=== PATIENT | female | born 1990 | race Caucasian/White ===

== ENCOUNTER 2016-08-30 22:41 | Emergency (ER) | payer MEDICAID ==
[~2016-08-30] VITALS: Ht 154.9 cm; Wt 90.7 kg
[~2016-08-30 22:41] MED LIST: AC325T PO; AC500T PO; ACHD5005 PO; ALBU17AE23 IH; AMOX250C PO; AMOX500C2 PO; ARMO150T3 PO; BUTA-234 PO; BUTA1CAP41; CEFD300C3 PO; CEFU500T PO; CEPH-38 PO; CEPH-507 PO; CEPH500T PO; CODE-54 PO; CPR500T PO; CTLP20T PO; DIPH25TA82 PO; FERR-57 PO; FERR240T9 PO; FERR325C PO; FRS325T PO; HYDR-2856 PO; HYDR-3456 PO; HYDR-3714 PO; HYDR-757 PO; HYDR1CAP2 PO; HYDR1TAB PO; HYDR1TAB86 PO; IBP600T1 PO; IBP800T PO; LEVO25TA5; LMT25T PO; METR500T PO; NITR100C3 PO; OMEP40CA36; OSLT75C PO; OXYC-12 PO; PREN-115 PO; PREN1TAB39 PO; PREN1TAB71 PO; PRESTIQ; PRM25T PO; RANI150C11 PO; SULF1TAB35 PO; TRAM-21 PO; TRAZ150T42 PO
[2016-08-30] MEDS ORDERED: FERR236T3 PO (23:41)
[2016-08-31 00:23] LABS: BASOPHILS # (AUTO) 0.1 10^3/uL (0.0-0.1); BASOPHILS % (AUTO) 0 % (0-10); EOSINOPHILS # (AUTO) 0.1 10^3/uL (0.0-0.3); EOSINOPHILS % (AUTO) 1 % (0-10); LYMPHOCYTES # (AUTO) 3.3 X 10^3 (1.0-4.0); LYMPHOCYTES % (AUTO) 29 % (12-44); MEAN CORPUSCULAR HEMOGLOBIN 27 PG (25-34); MEAN CORPUSCULAR HGB CONC 32 G/DL (32-36); MEAN CORPUSCULAR VOLUME 84 FL (80-99); MEAN PLATELET VOLUME 9.5 FL (7.4-10.4); MONOCYTES # (AUTO) 0.8 X 10^3 (0.0-1.0); MONOCYTES % (AUTO) 7 % (0-12); NEUTROPHILS % (AUTO) 63 % (42-75); PLATELET COUNT 358 10^3/uL (130-400); RED BLOOD COUNT 4.31 10^6/uL (4.35-5.85); RED CELL DISTRIBUTION WIDTH 14.8 % (10.0-14.5); WHITE BLOOD COUNT 11.2 10^3/uL (4.3-11.0)
[2016-08-31 00:26] LABS: BILIRUBIN,URINE NEGATIVE (NEGATIVE); KETONES,URINE NEGATIVE (NEGATIVE); LEUKOCYTE ESTERASE ,URINE 3+ (NEGATIVE); NITRITE,URINE NEGATIVE (NEGATIVE); PH,URINE 6 (5-9); PROTEIN,URINE NEGATIVE (NEGATIVE); UROBILINOGEN,URINE NORMAL (NORMAL)
[2016-08-31 00:40] LABS: ALANINE AMINOTRANSFERASE 25 U/L (0-55); ALBUMIN 3.8 G/DL (3.2-4.5); ANION GAP 11 MMOL/L (5-14); ASPARTATE AMINO TRANSFERASE 19 U/L (5-34); BILIRUBIN,TOTAL 0.3 MG/DL (0.1-1.0); BLOOD UREA NITROGEN 12 MG/DL (7-18); BUN/CREATININE RATIO 17; CALCIUM 9.2 MG/DL (8.5-10.1); CARBON DIOXIDE 23 MMOL/L (21-32); CHLORIDE 107 MMOL/L (98-107); CREATININE SERUM 0.71 MG/DL (0.60-1.30); GFR ESTIMATED > 60; GLUCOSE 93 MG/DL (70-105); LIPASE 26 U/L (8-78); SODIUM 141 MMOL/L (135-145); TOTAL PROTEIN 7.4 G/DL (6.4-8.2)
[2016-08-31] MEDS ORDERED: CEPHALEXIN 250 MG (KEFLEX) CAP PO ONE (02:30)
[2016-08-31] MEDS ORDERED: KETOROLAC 30 MG/ML VIAL IVP ONE (02:30)
[2016-08-31] MEDS ORDERED: CEPH-507 PO (03:12)
[2016-08-31] MEDS ORDERED: RX-ONDANSETRON 4 MG ODT (ZOFRAN) PPK #4 SL STA (03:12)
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
[2016-08-31 03:23] VITALS: BP 136/103
--- NOTE | 2016-08-31 07:37 | Diagnostic Imaging Report ---
INDICATION: Abdominal pain. COMPARISON: None FINDINGS: Upright and supine frontal views of the abdomen are obtained. The bowel gas pattern is nonspecific but nonobstructive. There is a large amount of stool throughout the colon. There is some gas within nondistended small bowel. There is no evidence of free intraperitoneal air. There are surgical clips in the right upper quadrant likely from prior cholecystectomy. No urinary tract calcifications are suspected. The osseous structures appear unremarkable. IMPRESSION: Nonspecific but nonacute bowel gas pattern. There is a large amount of stool in the colon. No additional abnormality is seen. Dictated by: Dictated on workstation # [id number]
--- OUTSIDE RECORDS SUMMARY | 2016-09-11 13:15 | XMS REPORT ---
Author Author JYOTHI VALENTIN [facility] eClinicalWorks Address Unknown Phone Unavailable Care Team Providers Care Art Appraiser Name Role Phone JYOTHI VALENTIN CP Unavailable Allergies No Known Allergies Problems Problem Type Condition Code Onset Dates Condition Status Assessment Sore throat J02.9 Active Problem Borderline hypothyroidism R94.6 Active Problem Unprotected sex Z72.51 Active Problem Headache, chronic migraine without aura G43.709 Active Problem Fatigue R53.83 Active Problem Encounter for surveillance of nuvaring Z30.49 Active Problem Acquired hypothyroidism E03.9 Active Problem Periodic headache syndrome, not intractable G43.C0 Active Problem Hernia, umbilical K42.9 Active Problem Acute maxillary sinusitis, recurrence not specified J01.00 Active Medications No Known Medications Results No Known Results Summary Purpose eClinicalWorks Submission
--- OUTSIDE RECORDS SUMMARY | 2016-09-11 13:15 | XMS REPORT ---
Author Author ALYCIA FERGUSON Organization e[employer] Address Unknown Phone Unavailable Care Team Providers Care Table Worker Packager Name Role Phone ALYCIA FERGUSON CP Unavailable Allergies No Known Allergies Problems Problem Type Condition Code Onset Dates Condition Status Problem Borderline hypothyroidism R94.6 Active Problem Unprotected sex Z72.51 Active Problem Periodic headache syndrome, not intractable G43.C0 Active Medications Medication Code System Code Instructions Start Date End Date Status Dosage Protonix [facility] [address]-58 40 MG Orally Once a day Jan 31, 2015 1 tablet Results No Known Results Summary Purpose eClinicalWorks Submission
--- OUTSIDE RECORDS SUMMARY | 2016-09-11 13:15 | XMS REPORT ---
Author SUZIE Monreal e[employer] Address Unknown Phone Unavailable Care Team Providers Care Molder Setter Name Role Phone SUZIE JUSTIN CP Unavailable Allergies No Known Allergies Problems Problem Type Condition Code Onset Dates Condition Status Assessment Positive test Z32.01 Active Problem Borderline hypothyroidism R94.6 Active Problem [...]
--- OUTSIDE RECORDS SUMMARY | 2016-09-11 13:15 | XMS REPORT ---
Author Author JAYDEN ESCALANTE [facility] Address [address] [place] [address] Care Team Providers Care Bindery Machine Tender Name Role Phone JAYDEN ESCALANTE Unavailable PROBLEMS Type Condition ICD9-CM Code [id number] Code Onset Dates Condition Status SNOMED Code Problem Acquired hypothyroidism E03.9 Active 251264016 Problem Hernia, umbilical K42.9 Active 466913271 Problem Acute maxillary sinusitis, recurrence not specified J01.00 Active 89870373 Assessment Single current episode of major depressive disorder, unspecified depression episode severity F32.9 Jan, Active 56722162 Problem Unprotected sex Z72.51 Active 7913757 Problem Borderline hypothyroidism R94.6 Active 667555311 Problem Periodic headache syndrome, not intractable G43.C0 Active 36094098 Problem Single current episode of major depressive disorder, unspecified depression episode severity F32.9 Active 996626995 Problem Anxiety disorder, unspecified F41.9 Active 185597199 Problem Headache, chronic migraine without aura G43.709 Active 501501663372451 Problem Fatigue R53.83 Active 74146355 Problem Borderline personality disorder in adult F60.3 Active 94115980 Problem Encounter for surveillance of nuvaring Z30.49 Active 183442194 ALLERGIES Substance Reaction Event Type Date Status Percocet Unknown Drug Allergy Jan, Active SOCIAL HISTORY No smoking Hx information available PLAN OF CARE VITAL SIGNS MEDICATIONS Unknown Medications RESULTS No Results PROCEDURES Procedure Date Ordered Related Diagnosis Body Site Psychotherapy, patient &/family, 30 minutes, established patient Feb 26, 2016 IMMUNIZATIONS No Known Immunizations
--- OUTSIDE RECORDS SUMMARY | 2016-09-11 13:15 | XMS REPORT ---
Author Author SUZIE JUSTIN [employer] Address Unknown Phone Unavailable Care Team Providers Care Highballer Name Role Phone SUZIE JUSTIN CP Unavailable Allergies, Adverse Reactions, Alerts Substance Reaction Event Type Percocet Info Not Available Drug Allergy Problems Problem Type Condition Code Onset Dates [...] sinusitis, recurrence not specified J01.00 Active Medications Medication Code System Code Instructions Start Date End Date Status Dosage [facility] [address]-68 27-1 MG Orally not defined Results No Known Results Summary Purpose eClinicalWorks Submission
--- OUTSIDE RECORDS SUMMARY | 2016-09-11 13:15 | XMS REPORT ---
Author Author FAVIOLA MEDINA Organization eClinical[employer] Address Unknown Phone Unavailable Care Team Providers Care Internet Retailer Name Role Phone FAVIOLA MEDINA CP Unavailable Allergies No Known Allergies Problems Problem Type Condition Code Onset Dates Condition Status Problem Borderline hypothyroidism R94.6 Active Problem Unprotected sex Z72.51 Active Problem Periodic headache syndrome, not intractable G43.C0 Active Medications Medication Code System Code Instructions Start Date End Date Status Dosage [facility] [address]-46 10-325 MG Orally every 6 hrs Jan 28, 2015 1 tablet as needed Results No Known Results Summary Purpose eClinicalWorks Submission
--- OUTSIDE RECORDS SUMMARY | 2016-09-11 13:16 | XMS REPORT ---
Author Author TIM PATTRESON Organization eClinical[employer] Address Unknown Phone Unavailable Care Team Providers Care Rehabilitation Caseworker Name Role Phone TIM PATTERSON CP Unavailable Allergies No Known Allergies Problems [...]
--- OUTSIDE RECORDS SUMMARY | 2016-09-11 13:16 | XMS REPORT ---
Author Author ALYCIA FERGUSON Organization [employer] Address Unknown Phone Unavailable Care Team Providers Care Forming Machine Operator Name Role Phone ALYCIA FERGUSON CP Unavailable [...] Instructions Start Date End Date Status Dosage Hpxhupwavw-UHJE-Lcqfqeie [facility] [address]-41 50-300-40 MG Orally every 6 hours as needed for severe headache Jan 23, 2015 1 capsule Results No Known Results Summary Purpose eClinicalWorks Submission
--- OUTSIDE RECORDS SUMMARY | 2016-09-11 13:17 | XMS REPORT ---
Author Author SUZIE JUSTIN [facility] Address [address] [place] [address] Care Team Providers Care Reporting Developer Name Role Phone SUZIE JUSTIN Unavailable PROBLEMS Type Condition ICD9-CM Code [id number] Code Onset Dates Condition Status SNOMED Code Problem Acquired hypothyroidism E03.9 Active 590571246 Problem Hernia, umbilical K42.9 Active 527002067 Problem Acute maxillary sinusitis, recurrence not specified J01.00 Active 30977897 Assessment Encounter for test Z32.00 30 Jan, 2016 Active 350060671 Problem Unprotected sex Z72.51 Active 7746153 Problem Borderline hypothyroidism R94.6 Active 638387008 Problem Periodic headache syndrome, not intractable G43.C0 Active 30165465 Problem Single current episode of major depressive disorder, unspecified depression episode severity F32.9 Active 831364616 Problem Anxiety disorder, unspecified F41.9 Active 803091508 Problem Headache, chronic migraine without aura G43.709 Active 548609559878006 Problem Fatigue R53.83 Active 18064632 Problem Borderline personality disorder in adult F60.3 Active 88792591 Problem Encounter for surveillance of nuvaring Z30.49 Active 998566880 ALLERGIES Unknown Allergies SOCIAL HISTORY No smoking Hx information available PLAN OF CARE VITAL SIGNS MEDICATIONS Unknown Medications RESULTS No Results PROCEDURES Procedure Date Ordered Related Diagnosis Body Site URINE TEST Feb 26, 2016 IMMUNIZATIONS No Known Immunizations
--- OUTSIDE RECORDS SUMMARY | 2016-09-11 13:17 | XMS REPORT ---
Author Author ALYCIA FERGUSON [facility] eClinicalWorks Address Unknown Phone Unavailable Care Team Providers Care Repairer Switchgear Name Role Phone ALYCIA FERGUSON CP Unavailable Allergies, Adverse Reactions, Alerts Substance Reaction Event Type N.K.D.A. Info Not Available Non Drug Allergy Problems Problem Type Condition Code Onset Dates Condition Status Problem Borderline hypothyroidism R94.6 Active Problem Unprotected sex Z72.51 Active Problem Periodic headache syndrome, not intractable G43.C0 Active Assessment Umbilical pain R10.33 Active Assessment GERD (gastroesophageal reflux disease) K21.9 Active Medications Medication Code System Code Instructions Start Date End Date Status Dosage Prevacid [facility] [address]-59 30 MG Orally Once a day Jan 30, 2015 1 capsule Mhdkllxtfy-PVMY-Tjlkucwh [facility] [address]-55 50-300-40 MG Orally every 6 hours as needed for severe headache Jan 23, 2015 1 capsule [place] [facility] [address]-68 10-325 MG Orally every 6 hrs Jan 28, 2015 1 tablet as needed Levothyroxine Sodium [facility] [address]-60 25 MCG Orally Once a day Jan 11, 2015 1 tablet Procedures Procedure Coding System Code Date Office Visit, Est Pt., Level 4 CPT-4 20932 Jan 30, 2015 Vital Signs Date/Time: Jan 30, 2015 Temperature 98.4 F Weight 233.4 lbs Height 62 in BMI 42.68 Index Blood Pressure Diastolic 78 mmHg Blood Pressure Systolic 122 mmHg Cardiac Monitoring Heart Rate 78 bpm Results No Known Results Summary Purpose eClinicalWorks Submission
--- OUTSIDE RECORDS SUMMARY | 2016-09-11 13:17 | XMS REPORT ---
Author Author ALYCIA FERGUSON [facility] eClinicalWorks Address Unknown Phone Unavailable Care Team Providers Care Cook Ship Name Role Phone ALYCIA FERGUSON CP Unavailable [...] specified J01.00 Active Medications No Known Medications Procedures Procedure Coding System Code Date VENIPUNCT, ROUTINE* CPT-4 97953 Jan 01, 2016 [facility] NOBLL Jan 01, 2016 Results Name Result Date Reference Range Unit Abnormality Flag ROUTINE VENIPUNCTURE HCG, QUANTITATIVE ----hCG,Beta Subunit,Qnt,Serum [id number] [id number] mIU/mL Summary Purpose eClinicalWorks Submission
--- OUTSIDE RECORDS SUMMARY | 2016-09-11 13:17 | XMS REPORT ---
Author Author ALYCIA FERGUSON [facility] eClinicalWorks Address Unknown Phone Unavailable Care Team Providers Care Hydroelectric Plant Mechanical Engineer Name Role Phone ALYCIA FERGUSON CP Unavailable Allergies, Adverse Reactions, Alerts Substance Reaction Event Type N.K.D.A. Info Not Available Non Drug Allergy Problems Problem Type Condition Code Onset Dates Condition Status Problem Borderline hypothyroidism R94.6 Active Problem Unprotected sex Z72.51 Active Problem Periodic headache syndrome, not intractable G43.C0 Active Assessment Upper respiratory infection J06.9 Active Assessment Unprotected sex Z72.51 Active Assessment Borderline hypothyroidism R94.6 Active Assessment Periodic headache syndrome, not intractable G43.C0 Active Medications Medication Code System Code Instructions Start Date End Date Status Dosage Imitrex [facility] [address]-31 50 MG Orally Once as needed for MENDES Nov 28, 2014 1 tablet Azithromycin [facility] [address]-82 250 MG Orally Once a day Jan 08, 2015 Jan 13, 2015 2 tablets on the first day, then 1 tablet daily for 4 days Procedures Procedure Coding System Code Date CHORIONIC GONADOTROPIN ASSAY CPT-4 99785 Jan 08, 2015 No Charge CPT-4 72000 Jan 08, 2015 ASSAY THYROID STIM HORMONE CPT-4 11872 Jan 08, 2015 Office Visit, Est Pt., Level 4 CPT-4 83551 Jan 08, 2015 VENIPUNCT, ROUTINE* CPT-4 89547 Jan 08, 2015 Vital Signs Date/Time: Jan 08, 2015 Temperature 98.0 F Weight 232.8 lbs Height 62 in BMI 42.58 Index Blood Pressure Diastolic 74 mmHg Blood Pressure Systolic 128 mmHg Cardiac Monitoring Heart Rate 80 bpm Results Name Result Date Reference Range Unit Abnormality Flag ROUTINE VENIPUNCTURE Summary Purpose eClinicalWorks Submission
--- OUTSIDE RECORDS SUMMARY | 2016-09-11 13:17 | XMS REPORT ---
Author Author ALYCIA FERGUSON Organization eClinicalWorks Address Unknown Phone Unavailable Care Team Providers Care Fishing Gear Mechanic Name Role Phone ALYCIA FERGUSON Unavailable Allergies No Known Allergies Problems Problem Type Condition Code Onset Dates Condition Status Problem Borderline hypothyroidism R94.6 Active Problem Unprotected sex Z72.51 Active Problem Periodic headache syndrome, not intractable G43.C0 Active Medications Medication Code System Code Instructions Start Date End Date Status Dosage Levothyroxine Sodium [facility] [address]-73 25 MCG Orally Once a day Jan 11, 2015 1 tablet Results No Known Results Summary Purpose eClinicalWorks Submission
--- OUTSIDE RECORDS SUMMARY | 2016-09-11 13:17 | XMS REPORT ---
Author Author NANCI MATT [facility] eClinicalWorks Address Unknown Phone Unavailable Care Team Providers Care Short Piece Handler Name Role Phone NANCI MATT Unavailable Allergies No Known Allergies Problems Problem [...]
--- OUTSIDE RECORDS SUMMARY | 2016-09-11 13:19 | XMS REPORT ---
Author JYOTHI Gustafson [facility] eClinicalWorks Address Unknown Phone Unavailable Care Team Providers Care Sustainability Analyst Name Role Phone JYOTHI VALENTIN CP Unavailable Allergies, Adverse Reactions, Alerts Substance Reaction Event Type Percocet Info Not Available Drug Allergy Problems Problem Type Condition Code Onset Dates Condition Status Assessment Fatigue, unspecified type R53.83 Active Problem Borderline hypothyroidism R94.6 Active Problem Unprotected sex Z72.51 Active Assessment Sore throat J02.9 Active Problem Headache, chronic migraine without aura G43.709 Active Problem Fatigue R53.83 Active Problem Encounter for surveillance of nuvaring Z30.49 Active Problem Acquired hypothyroidism E03.9 Active Problem Periodic headache syndrome, not intractable G43.C0 Active Problem Hernia, umbilical K42.9 Active Problem Acute maxillary sinusitis, recurrence not specified J01.00 Active Medications Medication Code System Code Instructions Start Date End Date Status Dosage [facility] [address]-75 27-1 MG Orally not defined Procedures Procedure Coding System Code Date HETEROPHILE ANTIBODIES CPT-4 03239 Jan 20, 2016 Office Visit, Est Pt., Level 2 CPT-4 52715 Jan 20, 2016 LAB NOT BILLED BY [facility] CPT-4 NOBLL Jan 20, 2016 VENIPUNCT, ROUTINE* CPT-4 08566 Jan 20, 2016 Vital Signs Date/Time: Jan 20, 2016 Cardiac Monitoring Heart Rate 88 bpm Weight 212.3 lbs Height 62 in BMI 38.83 Index Blood Pressure Diastolic 76 mmHg Blood Pressure Systolic 108 mmHg Results Name Result Date Reference Range Unit Abnormality Flag MONO TEST (IN HOUSE) ----Lot # [id number] ----Exp date 02/26/201620160120 ----RESULTS Negative [id number] ----Control + [id number] ROUTINE VENIPUNCTURE CBC ----MCHC 32.6 20160120 31.5-35.7 g/dL ----MCH 26.9 [id number] 26.6-33.0 pg ----Platelets 336 32140550 150-379 x10E3/uL ----RDW 14.5 86908829 12.3-15.4 % ----Immature Granulocytes 0 62648975 % ----Immature Grans (Abs) 0.0 71756371 0.0-0.1 x10E3/uL ----Lymphs 34 58879430 % ----Monocytes 6 39968775 % ----Neutrophils 59 00642836 % ----Neutrophils (Absolute) 4.2 05556493 1.4-7.0 x10E3/uL ----Hematocrit 35.6 31112672 34.0-46.6 % ----Lymphs (Absolute) 2.4 26849402 0.7-3.1 x10E3/uL ----MCV 82 28638046 79-97 fL ----RBC 4.32 03561389 3.77-5.28 x10E6/uL ----Eos 1 64665800 % ----Basos 0 70132534 % ----Hemoglobin 11.6 69538635 11.1-15.9 g/dL ----Baso (Absolute) 0.0 45142500 0.0-0.2 x10E3/uL ----WBC 7.2 38570727 3.4-10.8 x10E3/uL ----Monocytes(Absolute) 0.4 88852617 0.1-0.9 x10E3/uL ----Eos (Absolute) 0.1 [id number] 0.0-0.4 x10E3/uL Summary Purpose eClinicalWorks Submission
--- OUTSIDE RECORDS SUMMARY | 2016-09-11 13:19 | XMS REPORT ---
Author Author SUZIE JUSTIN [facility] Address [address] [place] [address] Care Team Providers Care Human Services Care Specialist Name Role Phone SUZIE JUSTIN Unavailable PROBLEMS Type Condition ICD9-CM Code [id number] Code Onset Dates Condition Status SNOMED Code Problem Acquired hypothyroidism E03.9 Active 459119030 Problem Hernia, umbilical K42.9 Active 241439372 Problem Acute maxillary sinusitis, recurrence not specified J01.00 Active 27269766 Problem Unprotected sex Z72.51 Active 7927744 Problem Borderline hypothyroidism R94.6 Active 604829282 Problem Periodic headache syndrome, not intractable G43.C0 Active 82027043 Problem Single current episode of major depressive disorder, unspecified depression episode severity F32.9 Active 130930923 Problem Anxiety disorder, unspecified F41.9 Active 402070369 Problem Headache, chronic migraine without aura G43.709 Active 454581333134122 Problem Fatigue R53.83 Active 09257672 Problem Borderline personality disorder in adult F60.3 Active 36939403 Problem Encounter for surveillance of nuvaring Z30.49 Active 673974124 ALLERGIES Substance Reaction Event Type Date Status Percocet Unknown Drug Allergy Feb, Active SOCIAL HISTORY No smoking Hx information available PLAN OF CARE VITAL SIGNS MEDICATIONS Unknown Medications RESULTS No Results PROCEDURES No Known procedures IMMUNIZATIONS No Known Immunizations
--- OUTSIDE RECORDS SUMMARY | 2016-09-11 13:19 | XMS REPORT ---
Author Author CUCA ANDRADE eClinicalWorks Address Unknown Phone Unavailable Care Team Providers Care Student Life Coordinator Name Role Phone CUCA ANDRADE CP Unavailable Allergies, Adverse Reactions, Alerts Substance Reaction Event Type N.K.D.A. Info Not Available Non Drug Allergy Problems Problem Type Condition Code Onset Dates Condition Status Assessment History of heavy vaginal bleeding Z87.42 Active Problem Borderline hypothyroidism R94.6 Active Problem Unprotected sex Z72.51 Active Problem Headache, chronic migraine without aura G43.709 Active Problem Fatigue R53.83 Active Problem Encounter for surveillance of nuvaring Z30.49 Active Problem Acquired hypothyroidism E03.9 Active Problem Periodic headache syndrome, not intractable G43.C0 Active Problem Hernia, umbilical K42.9 Active Problem Acute maxillary sinusitis, recurrence not specified J01.00 Active Assessment Vaginal discharge N89.8 Active Assessment Encounter for surveillance of nuvaring Z30.49 Active Assessment Routine screening for STI (sexually transmitted infection) Z11.3 Active Assessment Unprotected sexual intercourse Z72.51 Active Medications Medication Code System Code Instructions Start Date End Date Status Dosage Aleve [facility] [address]-85 220 MG Orally every 12 hrs 1 tablet as needed Omeprazole [facility] [address]-31 40 MG Orally Once a day Mar 07, 2015 1 capsule Levothyroxine Sodium [facility] [address]-14 25 MCG Orally Once a day Jan 11, 2015 1 tablet Zlsksadmxi-SJPA-Jbhqmawr [facility] [address]-43 50-300-40 MG Orally every 6 hours as needed for severe headache Jan 23, 2015 1 capsule Procedures Procedure Coding System Code Date TRICHOMONAS ASSAY W/OPTIC CPT-4 49411 Mar 28, 2015 CULTURE, BACTERIA, OTHER CPT-4 07242 Mar 28, 2015 URINE TEST CPT-4 83800 Mar 28, 2015 N.GONORRHOEAE, DNA, AMP PROB CPT-4 66194 Mar 28, 2015 CHYLMD TRACH, DNA, AMP PROBE CPT-4 41736 Mar 28, 2015 Office Visit, Est Pt., Level 3 CPT-4 67223 Mar 28, 2015 Vital Signs Date/Time: Mar 28, 2015 Temperature 97.8 F Weight 228.5 lbs Height 62 in BMI 41.79 Index Blood Pressure Diastolic 72 mmHg Blood Pressure Systolic 124 mmHg Cardiac Monitoring Heart Rate 76 bpm Results Name Result Date Reference Range Unit Abnormality Flag TEST, URINE (IN HOUSE) ----RESULTS Negative [id number] ----Lot # [id number] ----Control + [id number] ----Exp date [id number] Summary Purpose eClinicalWorks Submission
--- OUTSIDE RECORDS SUMMARY | 2016-09-11 13:20 | XMS REPORT ---
Author Author RUDOLPH CALHOUN [facility] eClinicalWorks Address Unknown Phone Unavailable Care Team Providers Care Emergency Operator Name Role Phone RUDOLPH CALHOUN CP Unavailable Allergies, Adverse Reactions, Alerts Substance Reaction Event Type N.K.D.A. Info Not Available Non Drug Allergy Problems Problem Type Condition Code Onset Dates Condition Status Problem Borderline hypothyroidism R94.6 Active Problem Unprotected sex Z72.51 Active Problem Periodic headache syndrome, not intractable G43.C0 Active Assessment Abdominal pain R10.9 Active Medications Medication Code System Code Instructions Start Date End Date Status Dosage [place] [employer] [facility] [address]-52 10-325 MG Orally every 6 hrs Jan 28, 2015 1 tablet as needed Protonix [facility] [address]-77 40 MG Orally Once a day Jan 31, [address] [facility] [address]-39 25 MCG Orally Once a day Jan 11, 2015 1 tablet Erexwhiwyl-VHLK-Svbjifoe [facility] [address]-64 50-300-40 MG Orally every 6 hours as needed for severe headache Jan 23, 2015 1 capsule Abdominal Support 2X/3X Large [facility] 6[address]2740 Feb 15, 2015 as directed Abdominal Support 2X/3X Large [facility] [address] Feb 15, 2015 as directed Procedures Procedure Coding System Code Date Office Visit, Est Pt., Level 3 CPT-4 81976 Feb 15, 2015 Vital Signs Date/Time: Feb 15, 2015 Temperature 97.6 F Weight 231 lbs Height 62 in BMI 42.25 Index Blood Pressure Diastolic 88 mmHg Blood Pressure Systolic 124 mmHg Cardiac Monitoring Heart Rate 64 bpm Results No Known Results Summary Purpose eClinicalWorks Submission
--- OUTSIDE RECORDS SUMMARY | 2016-09-11 13:20 | XMS REPORT ---
Author Author ALYCIA FERGUSON Organization eClinicalWorks Address Unknown Phone Unavailable Care Team Providers Care Project Internship Name Role Phone ALYCIA FERGUSON CP Unavailable Allergies No Known Allergies Problems Problem Type Condition Code Onset Dates Condition Status Problem Unprotected sex Z72.51 Active Problem Fatigue R53.83 Active Problem Hernia, umbilical K42.9 Active Problem Headache, chronic migraine without aura G43.709 Active Problem Periodic headache syndrome, not intractable G43.C0 Active Problem Borderline hypothyroidism R94.6 Active Problem Acute maxillary sinusitis, recurrence not specified J01.00 Active Problem Acquired hypothyroidism E03.9 Active Medications No Known Medications Results No Known Results Summary Purpose eClinicalWorks Submission
--- OUTSIDE RECORDS SUMMARY | 2016-09-11 13:20 | XMS REPORT ---
Author Author CUCA ANDRADE eClinicalWorks Address Unknown Phone Unavailable Care Team Providers Care Street Roller Engineer Name Role Phone CUCA ANDRADE CP Unavailable Allergies, Adverse Reactions, Alerts Substance Reaction Event Type N.K.D.A. Info Not Available Non Drug Allergy Problems Problem Type Condition Code Onset Dates Condition Status Assessment History of irregular menstrual bleeding Z87.42 Active Assessment Screening for malignant neoplasm of cervix Z12.4 Active Problem Borderline hypothyroidism R94.6 Active Problem Unprotected sex Z72.51 Active Problem Periodic headache syndrome, not intractable G43.C0 Active Assessment Periodic headache syndrome, not intractable G43.C0 Active Assessment Amenorrhea, unspecified N91.2 Active Assessment Encounter for counseling regarding contraception Z30.9 Active Assessment Unprotected sex Z72.51 Active Medications Medication Code System Code Instructions Start Date End Date Status Dosage Abdominal Support 2X/3X [facility] [address]31 Feb 15, 2015 as directed NuvaRing [facility] [address]-09 0.12-0.015 MG/24HR Vaginal Feb 25, 2015 1 ring Protonix [facility] [address]-14 40 MG Orally Once a day Jan 31, 2015 1 tablet [facility] [address]-59 10-325 MG Orally every 6 hrs Jan 28, 2015 1 tablet as needed Zdvsjlsgmt-LEQI-Adxdshbj [facility] [address]-59 50-300-40 MG Orally every 6 hours as needed for severe headache Jan 23, 2015 1 capsule Levothyroxine Sodium [facility] [address]-27 25 MCG Orally Once a day Jan 11, 2015 1 tablet Abdominal Support 2X/3X [facility] [address] Feb 15, 2015 as directed Procedures Procedure Coding System Code Date VENIPUNCT, ROUTINE* CPT-4 84167 Feb 25, 2015 Office Visit, Est Pt., Level 3 CPT-4 77618 Feb 25, 2015 No Charge CPT-4 60542 Feb 25, 2015 TRICHOMONAS VAGIN, DIR PROBE CPT-4 87270 Feb 25, 2015 URINE TEST CPT-4 86694 Feb 25, 2015 ASSAY OF TOTAL TESTOSTERONE CPT-4 22105 Feb 25, 2015 GONADOTROPIN (FSH) CPT-4 83191 Feb 25, 2015 SPECIMEN HANDLING CPT-4 58252 Feb 25, 2015 ASSAY THYROID STIM HORMONE CPT-4 49704 Feb 25, 2015 CULTURE, BACTERIA, OTHER CPT-4 73692 Feb 25, 2015 GONADOTROPIN (LH) CPT-4 67556 Feb 25, 2015 ASSAY OF PROLACTIN CPT-4 64767 Feb 25, 2015 Vital Signs Date/Time: Feb 25, 2015 Temperature 98.4 F Weight 228.9 lbs Height 62 in BMI 41.86 Index Blood Pressure Diastolic 64 mmHg Blood Pressure Systolic 112 mmHg Cardiac Monitoring Heart Rate 60 bpm Results No Known Results Summary Purpose eClinicalWorks Submission
--- OUTSIDE RECORDS SUMMARY | 2016-09-11 13:20 | XMS REPORT ---
Author Author ALYCIA FERGUSON [facility] eClinicalWorks Address Unknown Phone Unavailable Care Team Providers Care Ware Finisher Name Role Phone ALYCIA FERGUSON Unavailable Allergies No Known Allergies Problems Problem Type Condition Code Onset Dates Condition Status Problem Borderline hypothyroidism R94.6 Active Problem Unprotected sex Z72.51 Active Problem Periodic headache syndrome, not intractable G43.C0 Active Medications Medication Code System Code Instructions Start Date End Date Status Dosage Rygradlmpb-WNYE-Mtejaovj [facility] [address]-62 50-300-40 MG Orally every 6 hours as needed for severe headache Jan 23, 2015 1 capsule Results No Known Results Summary Purpose eClinicalWorks Submission
--- OUTSIDE RECORDS SUMMARY | 2016-09-11 13:20 | XMS REPORT ---
Author Author ALYCIA FERGUSON eClinicalWorks Address Unknown Phone Unavailable Care Team Providers Care Loans Officer Name Role Phone ALYCIA FERGUSON Unavailable Allergies, Adverse Reactions, Alerts Substance Reaction Event Type N.K.D.A. Info Not Available Non Drug Allergy Problems Problem Type Condition Code Onset Dates Condition Status Assessment Fatigue R53.83 Active Problem Unprotected sex Z72.51 Active Assessment Headache, chronic migraine without aura G43.709 Active Problem Fatigue R53.83 Active Problem Hernia, umbilical K42.9 Active Problem Headache, chronic migraine without aura G43.709 Active Problem Periodic headache syndrome, not intractable G43.C0 Active Problem Borderline hypothyroidism R94.6 Active Problem Acute maxillary sinusitis, recurrence not specified J01.00 Active Problem Acquired hypothyroidism E03.9 Active Assessment Acquired hypothyroidism E03.9 Active Assessment Acute maxillary sinusitis, recurrence not specified J01.00 Active Assessment Hernia, umbilical K42.9 Active Medications Medication Code System Code Instructions Start Date End Date Status Dosage Levothyroxine Sodium [facility] [address]-53 25 MCG Orally Once a day Jan 11, 2015 1 tablet NuvaRing [facility] [address]-93 0.12-0.015 MG/24HR Vaginal Feb 25, 2015 1 ring Abdominal Support 2X/3X Large [facility] [address]-38446 Feb 15, 2015 as directed Omeprazole [facility] [address]-01 40 MG Orally Once a day Mar 07, 2015 1 capsule Bwrmzeixoz-URAI-Rqzquehi [facility] [address]-64 50-300-40 MG Orally every 6 hours as needed for severe headache Jan 23, 2015 1 capsule Azithromycin [facility] [address]-20 250 MG Orally Once a day Mar 07, 2015 Mar 12, 2015 2 tablets on the first day, then 1 tablet daily for 4 days Abdominal Support 2X/3X Large [facility] [address]69 Feb 15, 2015 as directed Procedures Procedure Coding System Code Date COMPREHEN METABOLIC PANEL CPT-4 55881 Mar 07, 2015 ASSAY THYROID STIM HORMONE CPT-4 38224 Mar 07, 2015 COMPLETE CBC W/AUTO DIFF WBC CPT-4 21547 Mar 07, 2015 VENIPUNCT, ROUTINE* CPT-4 68370 Mar 07, 2015 Office Visit, Est Pt., Level 4 CPT-4 72521 Mar 07, 2015 Vital Signs Date/Time: Mar 07, 2015 Temperature 98.4 F Weight 229.7 lbs Height 62 in BMI 42.01 Index Blood Pressure Diastolic 80 mmHg Blood Pressure Systolic 118 mmHg Cardiac Monitoring Heart Rate 80 bpm Results Name Result Date Reference Range Unit Abnormality Flag ROUTINE VENIPUNCTURE Summary Purpose eClinicalWorks Submission
--- OUTSIDE RECORDS SUMMARY | 2016-09-11 13:20 | XMS REPORT ---
Author Author TIM PATTERSON Organization [facility] Address [address] [place] [address] Care Team Providers Care Compression Molding Machine Operator Name Role Phone TIM PATTERSON Unavailable PROBLEMS Type Condition ICD9-CM Code CHC86-LA Code Onset Dates Condition Status SNOMED Code Problem Acquired hypothyroidism E03.9 Active 374725313 Problem Hernia, umbilical K42.9 Active 075017546 Problem Acute maxillary sinusitis, recurrence not specified J01.00 Active 04888469 Assessment Vaginal bleeding in patient at less than 20 weeks gestation O20.9 Feb, Active 10018373 Problem Unprotected sex Z72.51 Active 1514868 Problem Borderline hypothyroidism R94.6 Active 207943718 Problem Periodic headache syndrome, not intractable G43.C0 Active 63356339 Problem Single current episode of major depressive disorder, unspecified depression episode severity F32.9 Active 519270452 Problem Anxiety disorder, unspecified F41.9 Active 394353807 Problem Headache, chronic migraine without aura G43.709 Active 832194201079272 Problem Fatigue R53.83 Active 01802629 Problem Borderline personality disorder in adult F60.3 Active 40671575 Problem Encounter for surveillance of nuvaring Z30.49 Active 982424256 ALLERGIES Unknown Allergies SOCIAL HISTORY No smoking Hx information available PLAN OF CARE Activity Details Pending Test HCG, QUANTITATIVE ,Reason: VITAL SIGNS MEDICATIONS Unknown Medications RESULTS Name Result Date Reference Range HCG, QUANTITATIVE 2016-03-10 hCG,Beta Subunit,Qnt,Serum 10 PROCEDURES Procedure Date Ordered Related Diagnosis Body Site CHORIONIC GONADOTROPIN TEST Mar 10, 2016 VENIPUNCT, ROUTINE* Mar 10, 2016 IMMUNIZATIONS No Known Immunizations
--- OUTSIDE RECORDS SUMMARY | 2016-09-11 13:21 | XMS REPORT ---
Author Author GIOVANNI MARTÍNEZ eClinicalWorks Address Unknown Phone Unavailable Care Team Providers Care Hogshead Weigher Name Role Phone GIOVANNI MARTÍNEZ CP Unavailable Allergies, Adverse Reactions, Alerts Substance Reaction Event Type N.K.D.A. Info Not Available Non Drug Allergy Problems Problem Type Condition Code Onset Dates Condition Status Problem Unprotected sex Z72.51 Active Assessment Low grade intrepith lesion cyto smr crvx (LGSIL) R87.612 Active Problem Fatigue R53.83 Active Problem Hernia, umbilical K42.9 Active Problem Headache, chronic migraine without aura G43.709 Active Problem Periodic headache syndrome, not intractable G43.C0 Active Problem Borderline hypothyroidism R94.6 Active Problem Acute maxillary sinusitis, recurrence not specified J01.00 Active Problem Acquired hypothyroidism E03.9 Active Medications Medication Code System Code Instructions Start Date End Date Status Dosage Abdominal Support 2X/3X Large [facility] [address] Feb 15, 2015 as directed Omeprazole [facility] [address]-35 40 MG Orally Once a day Mar 07, 2015 1 capsule NuvaRing [facility] [address]-79 0.12-0.015 MG/24HR Vaginal Feb 25, 2015 1 ring Abdominal Support 2X/3X Large [facility] [address] Feb 15, 2015 as directed Mjblalzsbr-KVPM-Nxwpfjal [facility] [address]-21 50-300-40 MG Orally every 6 hours as needed for severe headache Jan 23, 2015 1 capsule Levothyroxine Sodium [facility] [address]-12 25 MCG Orally Once a day Jan 11, 2015 1 tablet Procedures Procedure Coding System Code Date BX/CURETT OF CERVIX W/SCOPE CPT-4 95637 Mar 13, 2015 URINE TEST CPT-4 34366 Mar 13, 2015 Results Name Result Date Reference Range Unit Abnormality Flag TEST, URINE (IN HOUSE) ----RESULTS NEGATIVE [id number] ----Lot # [id number] ----Control + [id number] ----Exp date [id number] COLP W/ BX & ECC Summary Purpose eClinicalWorks Submission
--- OUTSIDE RECORDS SUMMARY | 2016-09-11 13:21 | XMS REPORT ---
Author Author FAVIOLA MEDINA [facility] eClinicalWorks Address Unknown Phone Unavailable Care Team Providers Care Parking Lot Signaler Name Role Phone FAVIOLA MEDINA CP Unavailable Allergies, Adverse Reactions, Alerts Substance Reaction Event Type N.K.D.A. Info Not Available Non Drug Allergy Problems Problem Type Condition Code Onset Dates Condition Status Problem Borderline hypothyroidism R94.6 Active Problem Unprotected sex Z72.51 Active Problem Periodic headache syndrome, not intractable G43.C0 Active Assessment Umbilical pain R10.33 Active Medications Medication Code System Code Instructions Start Date End Date Status Dosage Levothyroxine Sodium [facility] [address]-02 25 MCG Orally Once a day Jan 11, 2015 1 tablet Omeprazole [facility] [address]-02 20 MG Orally Once a day 1 capsule Rtzqwaacvf-RHHZ-Nchszymg [facility] [address]-51 50-300-40 MG Orally every 6 hours as needed for severe headache Jan 23, 2015 1 capsule [place] [facility] [address]-32 10-325 MG Orally every 6 hrs Jan 28, 2015 1 tablet as needed Procedures Procedure Coding System Code Date Office Visit, Est Pt., Level 3 CPT-4 87225 Jan 28, 2015 Vital Signs Date/Time: Jan 28, 2015 Temperature 97.5 F Weight 232.7 lbs Height 62 in BMI 42.56 Index Blood Pressure Diastolic 72 mmHg Blood Pressure Systolic 100 mmHg Cardiac Monitoring Heart Rate 72 bpm Results No Known Results Summary Purpose eClinicalWorks Submission
--- OUTSIDE RECORDS SUMMARY | 2016-09-11 13:21 | XMS REPORT ---
Author Author JAYDEN ESCALANTE [facility] eClinicalWorks Address Unknown Phone Unavailable Care Team Providers Care Nuclear Engineer Name Role Phone JAYDEN ESCALANTE CP Unavailable Allergies, Adverse Reactions, Alerts Substance Reaction Event Type Percocet Info Not Available Drug Allergy Problems Problem Type Condition Code Onset Dates Condition Status Problem Periodic headache syndrome, not intractable G43.C0 Active Problem Acute maxillary sinusitis, recurrence not specified J01.00 Active Problem Acquired hypothyroidism E03.9 Active Problem Anxiety disorder, unspecified F41.9 Active Problem Borderline personality disorder in adult F60.3 Active Problem Single current episode of major depressive disorder, unspecified depression episode severity F32.9 Active Problem Fatigue R53.83 Active Problem Hernia, umbilical K42.9 Active Problem Encounter for surveillance of nuvaring Z30.49 Active Problem Headache, chronic migraine without aura G43.709 Active Assessment Anxiety disorder, unspecified F41.9 Active Assessment Single current episode of major depressive disorder, unspecified depression episode severity F32.9 Active Problem Unprotected sex Z72.51 Active Assessment Borderline personality disorder in adult F60.3 Active Problem Borderline hypothyroidism R94.6 Active Medications No Known Medications Procedures Procedure Coding System Code Date Psych diagnostic evaluation, new patient CPT-4 59118 Feb 17, 2016 Results No Known Results Summary Purpose eClinicalWorks Submission
--- OUTSIDE RECORDS SUMMARY | 2016-09-11 13:24 | XMS REPORT ---
Author Author SUZIE JUSTIN [facility] eClinicalWorks Address Unknown Phone Unavailable Care Team Providers Care Washer Assembler Name Role Phone SUZIE JUSTIN CP Unavailable Allergies, Adverse Reactions, Alerts Substance Reaction Event Type N.K.D.A. Info Not Available Non Drug Allergy Problems Problem Type Condition ICD-9 Code Onset Dates Condition Status Problem Unspecified episodic mood disorder 296.90 Active Assessment Leukorrhea 623.5 Active Problem Anxiety state, unspecified 300.00 Active Assessment Migraine 346.90 Active Assessment Scabies 133.0 Active Medications Medication Code System Code Instructions Start Date End Date Status Dosage Imitrex [facility] [address]-35 50 MG Orally Once as needed for MENDES Nov 28, 2014 1 tablet Permethrin [facility] [address]-36 5 % Externally once Nov 28, 2014 as directed Procedures Procedure Coding System Code Date No Charge CPT-4 07588 Nov 28, 2014 TRICHOMONAS VAGIN, DIR PROBE CPT-4 22134 Nov 28, 2014 CULTURE, BACTERIA, OTHER CPT-4 77493 Nov 28, 2014 Office Visit, Est Pt., Level 4 CPT-4 21405 Nov 28, 2014 Vital Signs Date/Time: Nov 28, 2014 Temperature 98.0 F Weight 235.6 lbs Height 62 in BMI 43.09 Index Blood Pressure Diastolic 78 mmHg Blood Pressure Systolic 124 mmHg Cardiac Monitoring Heart Rate 88 bpm Results Name Result Date Reference Range Unit Abnormality Flag TRICHOMONAS (IN HOUSE) Summary Purpose eClinicalWorks Submission
--- OUTSIDE RECORDS SUMMARY | 2016-09-11 13:24 | XMS REPORT ---
Author Author TIM PATTERSON Organization [facility] Address [address] [place] [address] Care Team Providers Care Bottom Saw Operator Name Role Phone TIM PATTERSON Unavailable PROBLEMS Type Condition ICD9-CM Code [id number] Code Onset Dates Condition Status SNOMED Code Problem Acquired hypothyroidism E03.9 Active 315638611 Problem Hernia, umbilical K42.9 Active 424667509 Problem Acute maxillary sinusitis, recurrence not specified J01.00 Active 94461936 Assessment Vaginal bleeding in patient at less than 20 weeks gestation O20.9 12 Feb, 2016 Active 335073431 Problem Unprotected sex Z72.51 Active 1109853 Problem Borderline hypothyroidism R94.6 Active 193824764 Problem Periodic headache syndrome, not intractable G43.C0 Active 93385410 Problem Single current episode of major depressive disorder, unspecified depression episode severity F32.9 Active 686488346 Problem Anxiety disorder, unspecified F41.9 Active 052836426 Problem Headache, chronic migraine without aura G43.709 Active 666186775787795 Problem Fatigue R53.83 Active 37608211 Problem Borderline personality disorder in adult F60.3 Active 96647376 Problem Encounter for surveillance of nuvaring Z30.49 Active 911697355 ALLERGIES Unknown Allergies SOCIAL HISTORY No smoking Hx information available PLAN OF CARE VITAL SIGNS MEDICATIONS Unknown Medications RESULTS No Results PROCEDURES No Known procedures IMMUNIZATIONS No Known Immunizations
--- OUTSIDE RECORDS SUMMARY | 2016-09-11 13:24 | XMS REPORT | Continuity of Care Document ---
Author Author [facility] Address Unknown Phone Unavailable Allergies Active Description Code Type Severity Reaction Onset Reported/Identified Relationship to Patient Clinical Status Yes No Known Drug Allergies [id number] Drug Allergy Unknown N/ A 11/05/2009 Yes acetaminophen [id number] Drug Allergy Unknown hyperactivity 09/22/2015 Yes oxycodone [id number] Drug Allergy Unknown hyperactivity 09/22/2015 Medications Problems Date Dx Coded Attending Type Code Diagnosis Diagnosed By 07/12/2009 787.01 Nausea With Vomiting 07/12/2009 V22.0 Pc Normal First 07/12/2009 SUZIE JUSTIN DO 787.01 Nausea With Vomiting 07/12/2009 SUZIE JUSTIN DO V22.0 Pc Normal First 07/12/2009 SUZIE JUSTIN DO 787.01 Nausea With Vomiting 07/12/2009 SUZIE JUSTIN DO V22.0 Pc Normal First 07/12/2009 SUZIE JUSTIN DO 787.01 Nausea With Vomiting 07/12/2009 SUZIE JUSTIN DO V22.0 Pc Normal First 07/12/2009 787.01 Nausea With Vomiting 07/12/2009 V22.0 Pc Normal First 07/12/2009 787.01 Nausea With Vomiting 07/12/2009 V22.0 Pc Normal First 07/12/2009 787.01 Nausea With Vomiting 07/12/2009 V22.0 Pc Normal First 07/12/2009 787.01 Nausea With Vomiting 07/12/2009 V22.0 Pc Normal First 07/12/2009 787.01 Nausea With Vomiting 07/12/2009 V22.0 Pc Normal First 07/12/2009 SUZIE JUSTIN DO 787.01 Nausea With Vomiting 07/12/2009 SUZIE JUSTIN DO V22.0 Pc Normal First 07/12/2009 SUZIE JUSTIN DO 787.01 Nausea With Vomiting 07/12/2009 SUZIE JUSTIN DO V22.0 Pc Normal First 07/12/2009 RADHA TY, JOSIAH Lara 787.01 Nausea With Vomiting 07/12/2009 RADHA TY, JOSIAH D V22.0 Pc Normal First 07/12/2009 RADHA TY, JOSIAH Lara 787.01 Nausea With Vomiting 07/12/2009 RADHA TY, JOSIAH D V22.0 Pc Normal First 07/12/2009 RADHA TY, JOSIAH Lara 787.01 Nausea With Vomiting 07/12/2009 RADHA TY, JOSIAH D V22.0 Pc Normal First 07/12/2009 RADHA TY, JOSIAH Lara 787.01 Nausea With Vomiting 07/12/2009 RADHA TY, JOSIAH D V22.0 Pc Normal First 07/12/2009 RADHA TY, JOSIAH Lara 787.01 Nausea With Vomiting 07/12/2009 RADHA TY, JOSIAH D V22.0 Pc Normal First 07/12/2009 WILLY PURVIS PSYD 787.01 Nausea With Vomiting 07/12/2009 WILLY PURVIS PSYD V22.0 Pc Normal First 08/01/2009 646.30 RECURRENT LOSS (GRAVID) 08/01/2009 787.02 Nausea Alone 08/01/2009 V23.89 Supervision Of Other High-risk 08/01/2009 V72.31 Personalization Specialist Exam, Routine 08/01/2009 V74.5 Std Screen 08/01/2009 SUZIE JUTSIN DO 646.30 RECURRENT LOSS (GRAVID) 08/01/2009 SUZIE JUSTIN DO 787.02 Nausea Alone 08/01/2009 SUZIE JUSTIN DO V23.89 Supervision Of Other High-risk 08/01/2009 SUZIE JUSTIN DO V72.31 Personalization Specialist Exam, Routine 08/01/2009 SUZIE JUSTIN DO V74.5 Std Screen 08/01/2009 SUZIE JUSTIN DO 646.30 RECURRENT LOSS (GRAVID) 08/01/2009 SUZIE JUSTIN DO 787.02 Nausea Alone 08/01/2009 SUZIE JUSTIN DO V23.89 Supervision Of Other High-risk 08/01/2009 SUZIE JUSTIN DO V72.31 Personalization Specialist Exam, Routine 08/01/2009 SUZIE JUSTIN DO V74.5 Std Screen 08/01/2009 SUZIE JUSTIN DO 646.30 RECURRENT LOSS (GRAVID) 08/01/2009 SUZIE JUSTIN DO 787.02 Nausea Alone 08/01/2009 SUZIE JUSTIN DO V23.89 Supervision Of Other High-risk 08/01/2009 SUZIE JUSTIN DO V72.31 Personalization Specialist Exam, Routine 08/01/2009 SUZIE JUSTIN DO V74.5 Std Screen 08/01/2009 646.30 RECURRENT LOSS (GRAVID) 08/01/2009 787.02 Nausea Alone 08/01/2009 V23.89 Supervision Of Other High-risk 08/01/2009 V72.31 Personalization Specialist Exam, Routine 08/01/2009 V74.5 Std Screen 08/01/2009 646.30 RECURRENT LOSS (GRAVID) 08/01/2009 787.02 Nausea Alone 08/01/2009 V23.89 Supervision Of Other High-risk 08/01/2009 V72.31 Personalization Specialist Exam, Routine 08/01/2009 V74.5 Std Screen 08/01/2009 646.30 RECURRENT LOSS (GRAVID) 08/01/2009 787.02 Nausea Alone 08/01/2009 V23.89 Supervision Of Other High-risk 08/01/2009 V72.31 Personalization Specialist Exam, Routine 08/01/2009 V74.5 Std Screen 08/01/2009 646.30 RECURRENT LOSS (GRAVID) 08/01/2009 787.02 Nausea Alone 08/01/2009 V23.89 Supervision Of Other High-risk 08/01/2009 V72.31 Personalization Specialist Exam, Routine 08/01/2009 V74.5 Std Screen 08/01/2009 646.30 RECURRENT LOSS (GRAVID) 08/01/2009 787.02 Nausea Alone 08/01/2009 V23.89 Supervision Of Other High-risk 08/01/2009 V72.31 Personalization Specialist Exam, Routine 08/01/2009 V74.5 Std Screen 08/01/2009 SUZIE JUSTIN DO 646.30 RECURRENT LOSS (GRAVID) 08/01/2009 SUZIE JUSTIN DO 787.02 Nausea Alone 08/01/2009 SUZIE JUSTIN DO V23.89 Supervision Of Other High-risk 08/01/2009 SUZIE JUSTIN DO V72.31 Personalization Specialist Exam, Routine 08/01/2009 SUZIE JUSTIN DO K V74.5 Std Screen 08/01/2009 SUZIE JUSTIN DO 646.30 RECURRENT LOSS (GRAVID) 08/01/2009 SUZIE JUSTIN DO K 787.02 Nausea Alone 08/01/2009 NHAN ZUNIGA SUZIE K V23.89 Supervision Of Other High-risk 08/01/2009 SUZIE JUSTIN DO V72.31 Personalization Specialist Exam, Routine 08/01/2009 SUZIE JUSTIN DO V74.5 Std Screen 08/01/2009 JOSIAH GARCIA PHD 646.30 RECURRENT LOSS (GRAVID) 08/01/2009 JOSIAH GARCIA PHD 787.02 Nausea Alone 08/01/2009 JOSIAH GARCIA PHD V23.89 Supervision Of Other High-risk 08/01/2009 JOSIAH GARCIA PHD V72.31 Personalization Specialist Exam, Routine 08/01/2009 JOSIAH GARCIA PHD V74.5 Std Screen 08/01/2009 JOSIAH GARCIA PHD 646.30 RECURRENT LOSS (GRAVID) 08/01/2009 JOSIAH GARCIA PHD 787.02 Nausea Alone 08/01/2009 JOSIAH GARCIA PHD V23.89 Supervision Of Other High-risk 08/01/2009 JOSIAH GARCIA PHD V72.31 Personalization Specialist Exam, Routine 08/01/2009 JOSIAH GARCIA PHD V74.5 Std Screen 08/01/2009 JOSIAH GARCIA PHD 646.30 RECURRENT LOSS (GRAVID) 08/01/2009 JOSIAH GARCIA PHD 787.02 Nausea Alone 08/01/2009 JOSIAH GARCIA PHD V23.89 Supervision Of Other High-risk 08/01/2009 JOSIAH GARCIA PHD V72.31 Personalization Specialist Exam, Routine 08/01/2009 JOSIAH GARCIA PHD V74.5 Std Screen 08/01/2009 JOSIAH GARCIA PHD 646.30 RECURRENT LOSS (GRAVID) 08/01/2009 JOSIAH GARCIA PHD 787.02 Nausea Alone 08/01/2009 JOSIAH GARCIA PHD V23.89 Supervision Of Other High-risk 08/01/2009 JOSIAH GARCIA PHD V72.31 Personalization Specialist Exam, Routine 08/01/2009 JOSIAH GARCIA PHD V74.5 Std Screen 08/01/2009 JOSIAH AGRCIA PHD 646.30 RECURRENT LOSS (GRAVID) 08/01/2009 JOSIAH GARCIA PHD 787.02 Nausea Alone 08/01/2009 JOSIAH GARCIA PHD V23.89 Supervision Of Other High-risk 08/01/2009 JOSIAH GARCIA PHD V72.31 Personalization Specialist Exam, Routine 08/01/2009 JOSIAH GARCIA PHD V74.5 Std Screen 08/01/2009 WILLY PURVIS PSYD 646.30 RECURRENT LOSS (GRAVID) 08/01/2009 WILLY PURVIS PSYD 787.02 Nausea Alone 08/01/2009 WILLY PURVIS PSYD V23.89 Supervision Of Other High-risk 08/01/2009 WILLY PURVIS PSYD V72.31 Personalization Specialist Exam, Routine 08/01/2009 WILLY PURVIS PSYD V74.5 Std Screen 08/20/2009 V23.2 with history of 08/20/2009 DENG JUSTIN DOA K V23.2 with history of 08/20/2009 DENG JUSTIN DOA K V23.2 with history of 08/20/2009 DENG JUSTIN DOA K V23.2 with history of 08/20/2009 V23.2 with history of 08/20/2009 V23.2 with history of 08/20/2009 V23.2 with history of 08/20/2009 V23.2 with history of 08/20/2009 V23.2 with history of 08/20/2009 DENG JUSTIN DOA K V23.2 with history of 08/20/2009 DENG JUSTIN DOA K V23.2 with history of 08/20/2009 JOSIAH GARCIA PHD V23.2 with history of 08/20/2009 JOSIAH GARCIA PHD V23.2 with history of 08/20/2009 JOSIAH GARCIA PHD V23.2 with history of 08/20/2009 JOSIAH GARCIA PHD V23.2 with history of 08/20/2009 JOSIAH GARCIA PHD V23.2 with history of 08/20/2009 WILLY PURVIS PSYD V23.2 with history of 09/03/2009 643.00 Mild Hyperemesis Gravidarum, Unspecified As To Episode Of Care Or Not Applicable 09/03/2009 SUZIE JUSTIN DO K 643.00 Mild Hyperemesis Gravidarum, Unspecified As To Episode Of Care Or Not Applicable 09/03/2009 SUZIE JUSTIN DO K 643.00 Mild Hyperemesis Gravidarum, Unspecified As To Episode Of Care Or Not Applicable 09/03/2009 SUZIE JUSTIN DO K 643.00 Mild Hyperemesis Gravidarum, Unspecified As To Episode Of Care Or Not Applicable 09/03/2009 643.00 Mild Hyperemesis Gravidarum, Unspecified As To Episode Of Care Or Not Applicable 09/03/2009 643.00 Mild Hyperemesis Gravidarum, Unspecified As To Episode Of Care Or Not Applicable 09/03/2009 643.00 Mild Hyperemesis Gravidarum, Unspecified As To Episode Of Care Or Not Applicable 09/03/2009 643.00 Mild Hyperemesis Gravidarum, Unspecified As To Episode Of Care Or Not Applicable 09/03/2009 643.00 Mild Hyperemesis Gravidarum, Unspecified As To Episode Of Care Or Not Applicable 09/03/2009 SUZIE JUSTIN DO K 643.00 Mild Hyperemesis Gravidarum, Unspecified As To Episode Of Care Or Not Applicable 09/03/2009 SUZIE JUSTIN DO K 643.00 Mild Hyperemesis Gravidarum, Unspecified As To Episode Of Care Or Not Applicable 09/03/2009 JOSIAH GARCIA PHD 643.00 Mild Hyperemesis Gravidarum, Unspecified As To Episode Of Care Or Not Applicable 09/03/2009 JOSIAH GARCIA PHD 643.00 Mild Hyperemesis Gravidarum, Unspecified As To Episode Of Care Or Not Applicable 09/03/2009 JOSIAH GARCIA PHD 643.00 Mild Hyperemesis Gravidarum, Unspecified As To Episode Of Care Or Not Applicable 09/03/2009 JOSIAH GARCIA PHD 643.00 Mild Hyperemesis Gravidarum, Unspecified As To Episode Of Care Or Not Applicable 09/03/2009 JOSIAH GARCIA PHD 643.00 Mild Hyperemesis Gravidarum, Unspecified As To Episode Of Care Or Not Applicable 09/03/2009 WILLY PURVIS PSYD 643.00 Mild Hyperemesis Gravidarum, Unspecified As To Episode Of Care Or Not Applicable 09/25/2009 599.0 Urinary Tract Infection 09/25/2009 JUSTIN DO, SUZIE K 599.0 Urinary Tract Infection 09/25/2009 JUSTIN DO, SUZIE K 599.0 Urinary Tract Infection 09/25/2009 JUSTIN DO, SUZIE K 599.0 Urinary Tract Infection 09/25/2009 599.0 Urinary Tract Infection 09/25/2009 599.0 Urinary Tract Infection 09/25/2009 599.0 Urinary Tract Infection 09/25/2009 599.0 Urinary Tract Infection 09/25/2009 599.0 Urinary Tract Infection 09/25/2009 JUSTIN DO SUZIE K 599.0 Urinary Tract Infection 09/25/2009 JUSTIN DO SZUIE K 599.0 Urinary Tract Infection 09/25/2009 JOSIAH GACRIA PHD 599.0 Urinary Tract Infection 09/25/2009 JOSIAH GARCIA PHD 599.0 Urinary Tract Infection 09/25/2009 JOSIAH GARCIA PHD 599.0 Urinary Tract Infection 09/25/2009 JOSIAH GARCIA PHD 599.0 Urinary Tract Infection 09/25/2009 JOSIAH GARCIA PHD 599.0 Urinary Tract Infection 09/25/2009 WILLY PURVIS PSYD 599.0 Urinary Tract Infection 10/14/2009 112.3 Candidiasis Of Skin And Nails 10/14/2009 NHAN ZUNIGA SUZIE K 112.3 Candidiasis Of Skin And Nails 10/14/2009 JUSTIN DO SUZIE K 112.3 Candidiasis Of Skin And Nails 10/14/2009 JUSTIN DO SUZIE K 112.3 Candidiasis Of Skin And Nails 10/14/2009 112.3 Candidiasis Of Skin And Nails 10/14/2009 112.3 Candidiasis Of Skin And Nails 10/14/2009 112.3 Candidiasis Of Skin And Nails 10/14/2009 112.3 Candidiasis Of Skin And Nails 10/14/2009 112.3 Candidiasis Of Skin And Nails 10/14/2009 NHAN ZUNIGA SUZIE K 112.3 Candidiasis Of Skin And Nails 10/14/2009 SUZIE JUSTIN DO 112.3 Candidiasis Of Skin And Nails 10/14/2009 JOSIAH GARCIA PHD 112.3 Candidiasis Of Skin And Nails 10/14/2009 JOSIAH GARCIA PHD 112.3 Candidiasis Of Skin And Nails 10/14/2009 JOSIAH GARCIA PHD 112.3 Candidiasis Of Skin And Nails 10/14/2009 JOSIAH GARCIA PHD 112.3 Candidiasis Of Skin And Nails 10/14/2009 JOSIAH GARCIA PHD 112.3 Candidiasis Of Skin And Nails 10/14/2009 WILLY PURVIS PSYD 112.3 Candidiasis Of Skin And Nails 10/28/2009 460 Acute Nasopharyngitis [common Cold] 10/28/2009 SUZIE JUSTIN DO 460 Acute Nasopharyngitis [common Cold] 10/28/2009 SUZIE JUSTIN DO 460 Acute Nasopharyngitis [common Cold] 10/28/2009 SUZIE JUSTIN DO 460 Acute Nasopharyngitis [common Cold] 10/28/2009 460 Acute Nasopharyngitis [common Cold] 10/28/2009 460 Acute Nasopharyngitis [common Cold] 10/28/2009 460 Acute Nasopharyngitis [common Cold] 10/28/2009 460 Acute Nasopharyngitis [common Cold] 10/28/2009 460 Acute Nasopharyngitis [common Cold] 10/28/2009 SUZIE JUSTIN DO 460 Acute Nasopharyngitis [common Cold] 10/28/2009 SUZIE JUSTIN DO 460 Acute Nasopharyngitis [common Cold] 10/28/2009 JOSIAH GARCIA PHD 460 Acute Nasopharyngitis [common Cold] 10/28/2009 JOSIAH GARCIA PHD 460 Acute Nasopharyngitis [common Cold] 10/28/2009 JOSIAH GARCIA PHD 460 Acute Nasopharyngitis [common Cold] 10/28/2009 JOSIAH GARCIA PHD 460 Acute Nasopharyngitis [common Cold] 10/28/2009 JOSIAH GARCIA PHD 460 Acute Nasopharyngitis [common Cold] 10/28/2009 WILLY PURVIS PSYD 460 Acute Nasopharyngitis [common Cold] 11/13/2009 132.0 Lice Head 11/13/2009 599.0 Urinary Tract Infection 11/13/2009 JUSTIN DO, SUZIE K 132.0 Lice Head 11/13/2009 JUSTIN DO, SUZIE K 599.0 Urinary Tract Infection 11/13/2009 JUSTIN DO, SUZIE K 132.0 Lice Head 11/13/2009 JUSTIN DO, SUZIE K 599.0 Urinary Tract Infection 11/13/2009 JUSTIN DO, SUZIE K 132.0 Lice Head 11/13/2009 JUSTIN DO, SUZIE K 599.0 Urinary Tract Infection 11/13/2009 132.0 Lice Head 11/13/2009 599.0 Urinary Tract Infection 11/13/2009 132.0 Lice Head 11/13/2009 599.0 Urinary Tract Infection 11/13/2009 132.0 Lice Head 11/13/2009 599.0 Urinary Tract Infection 11/13/2009 132.0 Lice Head 11/13/2009 599.0 Urinary Tract Infection 11/13/2009 132.0 Lice Head 11/13/2009 599.0 Urinary Tract Infection 11/13/2009 JUSTIN DO, SUZIE K 132.0 Lice Head 11/13/2009 JUSTIN DO, SUZIE K 599.0 Urinary Tract Infection 11/13/2009 JUSTIN DO, SUZIE K 132.0 Lice Head 11/13/2009 JUSTIN DO, SUZIE K 599.0 Urinary Tract Infection 11/13/2009 RADHA PHD, JOSIAH Lara 132.0 Lice Head 11/13/2009 RADHA PHD, JOSIAH Lara 599.0 Urinary Tract Infection 11/13/2009 RADHA PHD, JOSIAH Lara 132.0 Lice Head 11/13/2009 RADHA PHD, JOSIAH Lara 599.0 Urinary Tract Infection 11/13/2009 RADHA PHD, JOSIAH Lara 132.0 Lice Head 11/13/2009 RADHA PHD, JOSIAH Lara 599.0 Urinary Tract Infection 11/13/2009 RADHA PHD, JOSIAH Lara 132.0 Lice Head 11/13/2009 RADHA PHD, JOSIAH Lara 599.0 Urinary Tract Infection 11/13/2009 RADHA PHD, JOSIAH Lara 132.0 Lice Head 11/13/2009 RADHA PHD, JOSIAH Lara 599.0 Urinary Tract Infection 11/13/2009 WILLY PURVIS PSYD 132.0 Lice Head 11/13/2009 WILLY PURVIS PSYD 599.0 Urinary Tract Infection 02/12/2010 V23.7 , High Risk W/ Insufficient Care 02/12/2010 JUSTIN DO SUZIE K V23.7 , High Risk W/ Insufficient Care 02/12/2010 JUSTIN DO, SUZIE K V23.7 , High Risk W/ Insufficient Care 02/12/2010 JUSTIN DO SUZIE K V23.7 , High Risk W/ Insufficient Care 02/12/2010 V23.7 , High Risk W/ Insufficient Care 02/12/2010 V23.7 , High Risk W/ Insufficient Care 02/12/2010 V23.7 , High Risk W/ Insufficient Care 02/12/2010 V23.7 , High Risk W/ Insufficient Care 02/12/2010 V23.7 , High Risk W/ Insufficient Care 02/12/2010 JUSTIN DO SUZIE K V23.7 , High Risk W/ Insufficient Care 02/12/2010 JUSTIN DENG ZUNIGAA K V23.7 , High Risk W/ Insufficient Care 02/12/2010 RADHA TY, JOSIAH Lara V23.7 , High Risk W/ Insufficient Care 02/12/2010 RADHA TY, JOSIAH Lara V23.7 , High Risk W/ Insufficient Care 02/12/2010 RADHA TY, JOSIAH Lara V23.7 , High Risk W/ Insufficient Care 02/12/2010 RADHA TY, JOSIAH Lara V23.7 , High Risk W/ Insufficient Care 02/12/2010 RADHA TY, JOSIAH Lara V23.7 , High Risk W/ Insufficient Care 02/12/2010 WILLY PURVIS PSYD V23.7 , High Risk W/ Insufficient Care 02/24/2010 461.9 Sinusitis Acute 02/24/2010 786.2 Cough 02/24/2010 JUSTIN DO SUZIE K 461.9 Sinusitis Acute 02/24/2010 JUSTIN DO SUZIE K 786.2 Cough 02/24/2010 JUSTIN DO, SUZIE K 461.9 Sinusitis Acute 02/24/2010 JUSTIN DO, SZUIE K 786.2 Cough 02/24/2010 JUSTIN DO SUZIE K 461.9 Sinusitis Acute 02/24/2010 JUSTIN DO, SUZIE K 786.2 Cough 02/24/2010 461.9 Sinusitis Acute 02/24/2010 786.2 Cough 02/24/2010 461.9 Sinusitis Acute 02/24/2010 786.2 Cough 02/24/2010 461.9 Sinusitis Acute 02/24/2010 786.2 Cough 02/24/2010 461.9 Sinusitis Acute 02/24/2010 786.2 Cough 02/24/2010 461.9 Sinusitis Acute 02/24/2010 786.2 Cough 02/24/2010 SUZIE JUSTIN DO K 461.9 Sinusitis Acute 02/24/2010 DENG JUSTIN DOA K 786.2 Cough 02/24/2010 JUSTIN DENG ZUNIGAA K 461.9 Sinusitis Acute 02/24/2010 SUZIE JUSTIN DO K 786.2 Cough 02/24/2010 RADHA TY, JOSIAH Lara 461.9 Sinusitis Acute 02/24/2010 RADHA TY, JOSIAH Lara 786.2 Cough 02/24/2010 RADHA TY, JOSIAH Lara 461.9 Sinusitis Acute 02/24/2010 RADHA TY, JOSIAH Lara 786.2 Cough 02/24/2010 RADHA TY, JOSIAH Lara 461.9 Sinusitis Acute 02/24/2010 RADHA TY, JOSIAH Lara 786.2 Cough 02/24/2010 RADHA TY, JOSIAH Lara 461.9 Sinusitis Acute 02/24/2010 RADHA TY, JOSIAH Lara 786.2 Cough 02/24/2010 RADHA TY, JOSIAH Lara 461.9 Sinusitis Acute 02/24/2010 RADHA TY, JOSIAH Lara 786.2 Cough 02/24/2010 WILLY PURVIS PSYD 461.9 Sinusitis Acute 02/24/2010 WILLY PURVIS PSYD 786.2 Cough 04/16/2010 V24.2 Visit For: Exam 04/16/2010 V25.02 Contraceptives 04/16/2010 V72.31 Routine Pelvic Exam 04/16/2010 V74.5 Visit For: Screening Exam Bact/spirochetal Venereal Disease 04/16/2010 SUZIE JUSTIN DO V24.2 Visit For: Exam 04/16/2010 SUZIE JUSTIN DO V25.02 Contraceptives 04/16/2010 SUZIE JUSTIN DO V72.31 Routine Pelvic Exam 04/16/2010 SUZIE JUSTIN DO V74.5 Visit For: Screening Exam Bact/spirochetal Venereal Disease 04/16/2010 SUZIE JUSTIN DO V24.2 Visit For: Exam 04/16/2010 SUZIE JUSTIN DO V25.02 Contraceptives 04/16/2010 SUZIE JUSTIN DO V72.31 Routine Pelvic Exam 04/16/2010 SUZIE JUSTIN DO V74.5 Visit For: Screening Exam Bact/spirochetal Venereal Disease 04/16/2010 SUZIE JUSTIN DO V24.2 Visit For: Exam 04/16/2010 SUZIE JUSTIN DO V25.02 Contraceptives 04/16/2010 SUZIE JUSTIN DO V72.31 Routine Pelvic Exam 04/16/2010 SUZIE JUSTIN DO V74.5 Visit For: Screening Exam Bact/spirochetal Venereal Disease 04/16/2010 V24.2 Visit For: Exam 04/16/2010 V25.02 Contraceptives 04/16/2010 V72.31 Routine Pelvic Exam 04/16/2010 V74.5 Visit For: Screening Exam Bact/spirochetal Venereal Disease 04/16/2010 V24.2 Visit For: Exam 04/16/2010 V25.02 Contraceptives 04/16/2010 V72.31 Routine Pelvic Exam 04/16/2010 V74.5 Visit For: Screening Exam Bact/spirochetal Venereal Disease 04/16/2010 V24.2 Visit For: Exam 04/16/2010 V25.02 Contraceptives 04/16/2010 V72.31 Routine Pelvic Exam 04/16/2010 V74.5 Visit For: Screening Exam Bact/spirochetal Venereal Disease 04/16/2010 V24.2 Visit For: Exam 04/16/2010 V25.02 Contraceptives 04/16/2010 V72.31 Routine Pelvic Exam 04/16/2010 V74.5 Visit For: Screening Exam Bact/spirochetal Venereal Disease 04/16/2010 V24.2 Visit For: Exam 04/16/2010 V25.02 Contraceptives 04/16/2010 V72.31 Routine Pelvic Exam 04/16/2010 V74.5 Visit For: Screening Exam Bact/spirochetal Venereal Disease 04/16/2010 SUZIE JUSTIN DO V24.2 Visit For: Exam 04/16/2010 SUZIE JUSTIN DO K V25.02 Contraceptives 04/16/2010 NHAN DODENGA K V72.31 Routine Pelvic Exam 04/16/2010 DENG JUSTIN DOA K V74.5 Visit For: Screening Exam Bact/spirochetal Venereal Disease 04/16/2010 SUZIE JUSTIN DO K V24.2 Visit For: Exam 04/16/2010 NHAN DOSUZIE K V25.02 Contraceptives 04/16/2010 SUZIE JUSTIN DO K V72.31 Routine Pelvic Exam 04/16/2010 SUZIE JUSTIN DO K V74.5 Visit For: Screening Exam Bact/spirochetal Venereal Disease 04/16/2010 JOSIAH GARCIA PHD V24.2 Visit For: Exam 04/16/2010 JOSIAH GARCIA PHD V25.02 Contraceptives 04/16/2010 JOSIAH GARCIA PHD V72.31 Routine Pelvic Exam 04/16/2010 JOSIAH GARCIA PHD V74.5 Visit For: Screening Exam Bact/ spirochetal Venereal Disease 04/16/2010 JOSIAH GARCIA PHD V24.2 Visit For: Exam 04/16/2010 JOSIAH GARCIA PHD V25.02 Contraceptives 04/16/2010 JOSIAH GARCIA PHD V72.31 Routine Pelvic Exam 04/16/2010 JOSIAH GARCIA PHD V74.5 Visit For: Screening Exam Bact/ spirochetal Venereal Disease 04/16/2010 JOSIAH GARCIA PHD V24.2 Visit For: Exam 04/16/2010 JOSIAH GARCIA PHD V25.02 Contraceptives 04/16/2010 JOSIAH GARCIA PHD V72.31 Routine Pelvic Exam 04/16/2010 JOSIAH GARCIA PHD V74.5 Visit For: Screening Exam Bact/ spirochetal Venereal Disease 04/16/2010 JOSIAH GARCIA PHD V24.2 Visit For: Exam 04/16/2010 JOSIAH GARCIA PHD V25.02 Contraceptives 04/16/2010 JOSIAH GARCIA PHD V72.31 Routine Pelvic Exam 04/16/2010 JOSIAH GARCIA PHD V74.5 Visit For: Screening Exam Bact/ spirochetal Venereal Disease 04/16/2010 JOSIAH GARCIA PHD V24.2 Visit For: Exam 04/16/2010 JOSIAH GARCIA PHD V25.02 Contraceptives 04/16/2010 JOSIAH GARCIA PHD V72.31 Routine Pelvic Exam 04/16/2010 JOSIAH GARCIA PHD V74.5 Visit For: Screening Exam Bact/ spirochetal Venereal Disease 04/16/2010 WILLY PURVIS PSYD V24.2 Visit For: Exam 04/16/2010 WILLY PURVIS PSYD V25.02 Contraceptives 04/16/2010 WILLY PURVIS PSYD V72.31 Routine Pelvic Exam 04/16/2010 WILLY PURVIS PSYD V74.5 Visit For: Screening Exam Bact/ spirochetal Venereal Disease 05/05/2010 V72.42 Test Positive Result 05/05/2010 SUZIE JUSTIN DO K V72.42 Test Positive Result 05/05/2010 DENG JUSTIN DOA K V72.42 Test Positive Result 05/05/2010 SUZIE JUSTIN DO V72.42 Test Positive Result 05/05/2010 V72.42 Test Positive Result 05/05/2010 V72.42 Test Positive Result 05/05/2010 V72.42 Test Positive Result 05/05/2010 V72.42 Test Positive Result 05/05/2010 V72.42 Test Positive Result 05/05/2010 SUZIE JUSTIN DO K V72.42 Test Positive Result 05/05/2010 SUZIE JUSTIN DO K V72.42 Test Positive Result 05/05/2010 JOSIAH GARCIA PHD V72.42 Test Positive Result 05/05/2010 JOSIAH GARCIA PHD V72.42 Test Positive Result 05/05/2010 JOSIAH GARCIA PHD V72.42 Test Positive Result 05/05/2010 JOSIAH GARCIA PHD V72.42 Test Positive Result 05/05/2010 JOSIAH GARCIA PHD V72.42 Test Positive Result 05/05/2010 WILLY PURVIS PSYD V72.42 Test Positive Result 06/09/2010 008.8 Intestinal Infection Due To Other Organism Not Elsewhere Classified 06/09/2010 SUZIE JUSTIN DO 008.8 Intestinal Infection Due To Other Organism Not Elsewhere Classified 06/09/2010 JUSTIN DO, SUZIE K 008.8 Intestinal Infection Due To Other Organism Not Elsewhere Classified 06/09/2010 JUSTIN DO, SUZIE K 008.8 Intestinal Infection Due To Other Organism Not Elsewhere Classified 06/09/2010 008.8 Intestinal Infection Due To Other Organism Not Elsewhere Classified 06/09/2010 008.8 Intestinal Infection Due To Other Organism Not Elsewhere Classified 06/09/2010 008.8 Intestinal Infection Due To Other Organism Not Elsewhere Classified 06/09/2010 008.8 Intestinal Infection Due To Other Organism Not Elsewhere Classified 06/09/2010 008.8 Intestinal Infection Due To Other Organism Not Elsewhere Classified 06/09/2010 JUSTIN DO, SUZIE K 008.8 Intestinal Infection Due To Other Organism Not Elsewhere Classified 06/09/2010 JUSTIN DO, SUZIE K 008.8 Intestinal Infection Due To Other Organism Not Elsewhere Classified 06/09/2010 JOSIAH GARCIA PHD 008.8 Intestinal Infection Due To Other Organism Not Elsewhere Classified 06/09/2010 JOSIAH GARCIA PHD 008.8 Intestinal Infection Due To Other Organism Not Elsewhere Classified 06/09/2010 JOSIAH GARCIA PHD 008.8 Intestinal Infection Due To Other Organism Not Elsewhere Classified 06/09/2010 JOSIAH GARCIA PHD 008.8 Intestinal Infection Due To Other Organism Not Elsewhere Classified 06/09/2010 JOSIAH GARCIA PHD 008.8 Intestinal Infection Due To Other Organism Not Elsewhere Classified 06/09/2010 WILLY PURVIS PSYD 008.8 Intestinal Infection Due To Other Organism Not Elsewhere Classified 06/13/2010 V72.41 Test Negative Result 06/13/2010 JUSTIN DO, SUZIE K V72.41 Test Negative Result 06/13/2010 JUSTIN DO, SUZIE K V72.41 Test Negative Result 06/13/2010 JUSTIN DO, SUZIE K V72.41 Test Negative Result 06/13/2010 V72.41 Test Negative Result 06/13/2010 V72.41 Test Negative Result 06/13/2010 V72.41 Test Negative Result 06/13/2010 V72.41 Test Negative Result 06/13/2010 V72.41 Test Negative Result 06/13/2010 JUSTIN DO, SUZIE K V72.41 Test Negative Result 06/13/2010 JUSTIN DO, SUZIE K V72.41 Test Negative Result 06/13/2010 JOSIAH GARCIA PHD V72.41 Test Negative Result 06/13/2010 JOSIAH GARCIA PHD V72.41 Test Negative Result 06/13/2010 JOSIAH GARCIA PHD V72.41 Test Negative Result 06/13/2010 JOSIAH GARCIA PHD V72.41 Test Negative Result 06/13/2010 JOSIAH GARCIA PHD V72.41 Test Negative Result 06/13/2010 WILLY PURVIS PSYD V72.41 Test Negative Result 06/18/2010 641.90 Compl Of - Bleeding 06/18/2010 SUZIE JUSTIN DO 641.90 Compl Of - Bleeding 06/18/2010 SUZIE JUSTIN DO 641.90 Compl Of - Bleeding 06/18/2010 SUZIE JUSTIN DO 641.90 Compl Of - Bleeding 06/18/2010 641.90 Compl Of - Bleeding 06/18/2010 641.90 Compl Of - Bleeding 06/18/2010 641.90 Compl Of - Bleeding 06/18/2010 641.90 Compl Of - Bleeding 06/18/2010 641.90 Compl Of - Bleeding 06/18/2010 SUZIE JUSTIN DO 641.90 Compl Of - Bleeding 06/18/2010 SUZIE JUSTIN DO 641.90 Compl Of - Bleeding 06/18/2010 JOSIAH GARCIA PHD 641.90 Compl Of - Bleeding 06/18/2010 JOSIAH GARCIA PHD 641.90 Compl Of - Bleeding 06/18/2010 JOSIAH GARCIA PHD 641.90 Compl Of - Bleeding 06/18/2010 JOSIAH GARCIA PHD 641.90 Compl Of - Bleeding 06/18/2010 JOSIAH GARCIA PHD 641.90 Compl Of - Bleeding 06/18/2010 WILLY PURVIS PSYD 641.90 Compl Of - Bleeding 07/24/2010 V22.1 Obstetrical Services Antepartum Care Only 07/24/2010 SUZIE JUSTIN DO V22.1 Obstetrical Services Antepartum Care Only 07/24/2010 SUZIE JUSTIN DO V22.1 Obstetrical Services Antepartum Care Only 07/24/2010 SUZIE JUSTIN DO V22.1 Obstetrical Services Antepartum Care Only 07/24/2010 V22.1 Obstetrical Services Antepartum Care Only 07/24/2010 V22.1 Obstetrical Services Antepartum Care Only 07/24/2010 V22.1 Obstetrical Services Antepartum Care Only 07/24/2010 V22.1 Obstetrical Services Antepartum Care Only 07/24/2010 V22.1 Obstetrical Services Antepartum Care Only 07/24/2010 SUZIE JUSTIN DO K V22.1 Obstetrical Services Antepartum Care Only 07/24/2010 SUZIE JUSTIN DO V22.1 Obstetrical Services Antepartum Care Only 07/24/2010 JOSIAH GARCIA PHD V22.1 Obstetrical Services Antepartum Care Only 07/24/2010 JOSIAH GARCIA PHD V22.1 Obstetrical Services Antepartum Care Only 07/24/2010 JOSIAH GARCIA PHD V22.1 Obstetrical Services Antepartum Care Only 07/24/2010 JOSIAH GARCIA PHD V22.1 Obstetrical Services Antepartum Care Only 07/24/2010 JOSIAH GARCIA PHD V22.1 Obstetrical Services Antepartum Care Only 07/24/2010 WILLY PURIVS PSYD V22.1 Obstetrical Services Antepartum Care Only 08/07/2010 576.0 POST CHOLECYSTECTOMY 08/07/2010 616.10 Vaginitis Vulvovaginitis Unspecified 08/07/2010 788.1 Dysuria 08/07/2010 DENG JUSTIN DOA K 576.0 POST CHOLECYSTECTOMY 08/07/2010 DENG JUSTIN DOA K 616.10 Vaginitis Vulvovaginitis Unspecified 08/07/2010 DENG JUSTIN DOA K 788.1 Dysuria 08/07/2010 NHAN ZUNIGA SUZIE K 576.0 POST CHOLECYSTECTOMY 08/07/2010 NHAN ZUNIGA SUZIE K 616.10 Vaginitis Vulvovaginitis Unspecified 08/07/2010 NHAN ZUNIGA SUZIE K 788.1 Dysuria 08/07/2010 NHAN ZUNIGA SUZIE K 576.0 POST CHOLECYSTECTOMY 08/07/2010 JUSTIN DO SUZIE K 616.10 Vaginitis Vulvovaginitis Unspecified 08/07/2010 NHAN ZUNIGA SUZIE K 788.1 Dysuria 08/07/2010 576.0 POST CHOLECYSTECTOMY 08/07/2010 616.10 Vaginitis Vulvovaginitis Unspecified 08/07/2010 788.1 Dysuria 08/07/2010 576.0 POST CHOLECYSTECTOMY 08/07/2010 616.10 Vaginitis Vulvovaginitis Unspecified 08/07/2010 788.1 Dysuria 08/07/2010 576.0 POST CHOLECYSTECTOMY 08/07/2010 616.10 Vaginitis Vulvovaginitis Unspecified 08/07/2010 788.1 Dysuria 08/07/2010 576.0 POST CHOLECYSTECTOMY 08/07/2010 616.10 Vaginitis Vulvovaginitis Unspecified 08/07/2010 788.1 Dysuria 08/07/2010 576.0 POST CHOLECYSTECTOMY 08/07/2010 616.10 Vaginitis Vulvovaginitis Unspecified 08/07/2010 788.1 Dysuria 08/07/2010 JUSTIN DO SUZIE K 576.0 POST CHOLECYSTECTOMY 08/07/2010 JUSTIN DO SUZIE K 616.10 Vaginitis Vulvovaginitis Unspecified 08/07/2010 JUSTIN DO SUZIE K 788.1 Dysuria 08/07/2010 JUSTIN DO SUZIE K 576.0 POST CHOLECYSTECTOMY 08/07/2010 JUSTIN DO SUZIE K 616.10 Vaginitis Vulvovaginitis Unspecified 08/07/2010 NHAN ZUNIGA SUZIE K 788.1 Dysuria 08/07/2010 JOSIAH GARCIA PHD 576.0 POST CHOLECYSTECTOMY 08/07/2010 JOSIAH GARCIA PHD 616.10 Vaginitis Vulvovaginitis Unspecified 08/07/2010 JOSIAH GARCIA PHD 788.1 Dysuria 08/07/2010 JOSIAH GARCIA PHD 576.0 POST CHOLECYSTECTOMY 08/07/2010 JOSIAH GARCIA PHD 616.10 Vaginitis Vulvovaginitis Unspecified 08/07/2010 JOSIAH GARCIA PHD 788.1 Dysuria 08/07/2010 JOSIAH GARCIA PHD 576.0 POST CHOLECYSTECTOMY 08/07/2010 JOSIAH GARCIA PHD 616.10 Vaginitis Vulvovaginitis Unspecified 08/07/2010 JOSIAH GARCIA PHD 788.1 Dysuria 08/07/2010 JOSIAH GARCIA PHD 576.0 POST CHOLECYSTECTOMY 08/07/2010 JOSIAH GARCIA PHD 616.10 Vaginitis Vulvovaginitis Unspecified 08/07/2010 RADHA PHD, JOSIAH Lara 788.1 Dysuria 08/07/2010 RADHA TY, JOSIAH Lara 576.0 POST CHOLECYSTECTOMY 08/07/2010 JOSIAH GARCIA PHD 616.10 Vaginitis Vulvovaginitis Unspecified 08/07/2010 RADHA TY, JOSIAH Lara 788.1 Dysuria 08/07/2010 WILLY PURVIS PSYD 576.0 POST CHOLECYSTECTOMY 08/07/2010 WILLY PURVIS PSYD 616.10 Vaginitis Vulvovaginitis Unspecified 08/07/2010 WILLY PURVIS PSYD 788.1 Dysuria 08/19/2010 309.28 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 08/19/2010 SUZIE JUSTIN DO 309.28 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 08/19/2010 SUZIE JUSTIN DO 309.28 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 08/19/2010 SUZIE JUSTIN DO 309.28 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 08/19/2010 309.28 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 08/19/2010 309.28 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 08/19/2010 309.28 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 08/19/2010 309.28 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 08/19/2010 309.28 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 08/19/2010 SUZIE JUSTIN DO 309.28 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 08/19/2010 SUZIE JUSTIN DO 309.28 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 08/19/2010 JOSIAH GARCIA PHD 309.28 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 08/19/2010 JOSIAH GARCIA PHD 309.28 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 08/19/2010 JOSIAH GARCIA PHD 309.28 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 08/19/2010 JOSIAH GARCIA PHD 309.28 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 08/19/2010 JOSAIH GARCIA PHD 309.28 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 08/19/2010 WILLY PURVIS PSYD 309.28 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 09/18/2010 301.9 PD PERS DIS NOS 09/18/2010 SUZIE JUSTIN DO K 301.9 PD PERS DIS NOS 09/18/2010 SUZIE JUSTIN DO K 301.9 PD PERS DIS NOS 09/18/2010 SUZIE JUSTIN DO K 301.9 PD PERS DIS NOS 09/18/2010 301.9 PD PERS DIS NOS 09/18/2010 301.9 PD PERS DIS NOS 09/18/2010 301.9 PD PERS DIS NOS 09/18/2010 301.9 PD PERS DIS NOS 09/18/2010 301.9 PD PERS DIS NOS 09/18/2010 SUZIE JUSTIN DO K 301.9 PD PERS DIS NOS 09/18/2010 SUZIE JUSTIN DO K 301.9 PD PERS DIS NOS 09/18/2010 JOSIAH GARCIA PHD 301.9 PD PERS DIS NOS 09/18/2010 JOSIAH GARCIA PHD 301.9 PD PERS DIS NOS 09/18/2010 JOSIAH GARCIA PHD 301.9 PD PERS DIS NOS 09/18/2010 JOSIAH GARCIA PHD 301.9 PD PERS DIS NOS 09/18/2010 JOSIAH GARCIA PHD 301.9 PD PERS DIS NOS 09/18/2010 WILLY PURVIS PSYD 301.9 PD PERS DIS NOS 10/28/2010 616.10 Vaginitis Vulvovaginitis Unspecified 10/28/2010 SUZIE JUSTIN DO 616.10 Vaginitis Vulvovaginitis Unspecified 10/28/2010 SUZIE JUSTIN DO 616.10 Vaginitis Vulvovaginitis Unspecified 10/28/2010 SUZIE JUSTIN DO 616.10 Vaginitis Vulvovaginitis Unspecified 10/28/2010 616.10 Vaginitis Vulvovaginitis Unspecified 10/28/2010 616.10 Vaginitis Vulvovaginitis Unspecified 10/28/2010 616.10 Vaginitis Vulvovaginitis Unspecified 10/28/2010 616.10 Vaginitis Vulvovaginitis Unspecified 10/28/2010 616.10 Vaginitis Vulvovaginitis Unspecified 10/28/2010 SUZIE JUSTIN DO 616.10 Vaginitis Vulvovaginitis Unspecified 10/28/2010 SUZIE JUSTIN DO 616.10 Vaginitis Vulvovaginitis Unspecified 10/28/2010 RADHA TY, JOSIAH Lara 616.10 Vaginitis Vulvovaginitis Unspecified 10/28/2010 RADHA TY, JOSIAH Lara 616.10 Vaginitis Vulvovaginitis Unspecified 10/28/2010 JOSIAH GARCIA PHD 616.10 Vaginitis Vulvovaginitis Unspecified 10/28/2010 RADHA TY, JOSIAH Lara 616.10 Vaginitis Vulvovaginitis Unspecified 10/28/2010 RADHA TY, JOSIAH Lara 616.10 Vaginitis Vulvovaginitis Unspecified 10/28/2010 WILLY PURVIS PSYD 616.10 Vaginitis Vulvovaginitis Unspecified 12/10/2010 V04.81 Vaccines Prophylactic Need Against Influenza 12/10/2010 V23.9 visit for: exam high-risk 12/10/2010 SUZIE JUSTIN DO V04.81 Vaccines Prophylactic Need Against Influenza 12/10/2010 SUZIE JUSTIN DO V23.9 visit for: exam high-risk 12/10/2010 SUZIE JUSTIN DO V04.81 Vaccines Prophylactic Need Against Influenza 12/10/2010 SUZIE JUSTIN DO V23.9 visit for: exam high-risk 12/10/2010 SUZIE JUSTIN DO V04.81 Vaccines Prophylactic Need Against Influenza 12/10/2010 SUZIE JUSTIN DO V23.9 visit for: exam high-risk 12/10/2010 V04.81 Vaccines Prophylactic Need Against Influenza 12/10/2010 V23.9 visit for: exam high-risk 12/10/2010 V04.81 Vaccines Prophylactic Need Against Influenza 12/10/2010 V23.9 visit for: exam high-risk 12/10/2010 V04.81 Vaccines Prophylactic Need Against Influenza 12/10/2010 V23.9 visit for: exam high-risk 12/10/2010 V04.81 Vaccines Prophylactic Need Against Influenza 12/10/2010 V23.9 visit for: exam high-risk 12/10/2010 V04.81 Vaccines Prophylactic Need Against Influenza 12/10/2010 V23.9 visit for: exam high-risk 12/10/2010 JUSTIN SUZIE ZUNIGA K V04.81 Vaccines Prophylactic Need Against Influenza 12/10/2010 SUZIE JUSTIN DO K V23.9 visit for: exam high-risk 12/10/2010 SUZIE JUSTIN DO V04.81 Vaccines Prophylactic Need Against Influenza 12/10/2010 SUZIE JUSTIN DO K V23.9 visit for: exam high-risk 12/10/2010 JOSIAH GARCIA PHD V04.81 Vaccines Prophylactic Need Against Influenza 12/10/2010 JOSIAH GARCIA PHD V23.9 visit for: exam high-risk 12/10/2010 JOSIAH GARCIA PHD V04.81 Vaccines Prophylactic Need Against Influenza 12/10/2010 JOSIAH GARCIA PHD V23.9 visit for: exam high-risk 12/10/2010 JOSIAH GARCIA PHD V04.81 Vaccines Prophylactic Need Against Influenza 12/10/2010 JOSIAH GARCIA PHD V23.9 visit for: exam high-risk 12/10/2010 JOSIAH GARCIA PHD V04.81 Vaccines Prophylactic Need Against Influenza 12/10/2010 JOSIAH GARCIA PHD V23.9 visit for: exam high-risk 12/10/2010 JOSIAH GARCIA PHD V04.81 Vaccines Prophylactic Need Against Influenza 12/10/2010 JOSIAH GARCIA PHD V23.9 visit for: exam high-risk 12/10/2010 WILLY PURVIS PSYD V04.81 Vaccines Prophylactic Need Against Influenza 12/10/2010 WILLY PURVIS PSYD V23.9 visit for: exam high-risk 12/24/2010 648.20 COMPLICATIONS: ANEMIA 12/24/2010 SUZIE JUSTIN DO 648.20 COMPLICATIONS: ANEMIA 12/24/2010 SUZIE JUSTIN DO 648.20 COMPLICATIONS: ANEMIA 12/24/2010 SUZIE JUSTIN DO 648.20 COMPLICATIONS: ANEMIA 12/24/2010 648.20 COMPLICATIONS: ANEMIA 12/24/2010 648.20 COMPLICATIONS: ANEMIA 12/24/2010 648.20 COMPLICATIONS: ANEMIA 12/24/2010 648.20 COMPLICATIONS: ANEMIA 12/24/2010 648.20 COMPLICATIONS: ANEMIA 12/24/2010 USZIE JUSTIN DO 648.20 COMPLICATIONS: ANEMIA 12/24/2010 SUZIE JUSTIN DO 648.20 COMPLICATIONS: ANEMIA 12/24/2010 JOSIAH GARCIA PHD 648.20 COMPLICATIONS: ANEMIA 12/24/2010 JOSIAH GARCIA PHD 648.20 COMPLICATIONS: ANEMIA 12/24/2010 JOSIAH GARCIA PHD 648.20 COMPLICATIONS: ANEMIA 12/24/2010 JOSIAH GARCIA PHD 648.20 COMPLICATIONS: ANEMIA 12/24/2010 JOSIAH GARCAI PHD 648.20 COMPLICATIONS: ANEMIA 12/24/2010 ABRAHAMJustice WILLY ZHAO 648.20 COMPLICATIONS: ANEMIA 01/06/2011 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 01/06/2011 V15.86 ingestion of heavy metals - lead 01/06/2011 SUZIE JUSTIN DO 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 01/06/2011 SUZIE JUSTIN DO V15.86 ingestion of heavy metals - lead 01/06/2011 SUZIE JUSTIN DO 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 01/06/2011 SUZIE JUSTIN DO V15.86 ingestion of heavy metals - lead 01/06/2011 SUZIE JUSTIN DO 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 01/06/2011 SUZIE JUSTIN DO V15.86 ingestion of heavy metals - lead 01/06/2011 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 01/06/2011 V15.86 ingestion of heavy metals - lead 01/06/2011 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 01/06/2011 V15.86 ingestion of heavy metals - lead 01/06/2011 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 01/06/2011 V15.86 ingestion of heavy metals - lead 01/06/2011 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 01/06/2011 V15.86 ingestion of heavy metals - lead 01/06/2011 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 01/06/2011 V15.86 ingestion of heavy metals - lead 01/06/2011 SUZIE JUSTIN DO 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 01/06/2011 SUZIE JUSTIN DO V15.86 ingestion of heavy metals - lead 01/06/2011 SUZIE JUSTIN DO 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 01/06/2011 SUZIE JUSTIN DO V15.86 ingestion of heavy metals - lead 01/06/2011 JOSIAH GARCIA PHD 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 01/06/2011 JOSIAH GARCIA PHD V15.86 ingestion of heavy metals - lead 01/06/2011 JOSIAH GARCIA PHD 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 01/06/2011 JOSIAH GARCIA PHD V15.86 ingestion of heavy metals - lead 01/06/2011 JOSIAH GARCIA PHD 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 01/06/2011 JOSIAH GARCIA PHD V15.86 ingestion of heavy metals - lead 01/06/2011 JOSIAH GARCIA PHD 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 01/06/2011 JOSIAH GARCIA PHD V15.86 ingestion of heavy metals - lead 01/06/2011 JOSIAH GARCIA PHD 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 01/06/2011 JOSIAH GARCIA PHD V15.86 ingestion of heavy metals - lead 01/06/2011 WILLY PURVIS PSYD 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 01/06/2011 WILLY PURVIS PSYD V15.86 ingestion of heavy metals - lead 02/25/2011 V24.2 visit for: exam 02/25/2011 V65.45 Anticipatory Guidance: Unsafe Sexual Practices 02/25/2011 V74.5 visit for: screening exam bact/spirochetal venereal disease 02/25/2011 SUZIE JUSTIN DO V24.2 visit for: exam 02/25/2011 SUZIE JUSTIN DO V65.45 Anticipatory Guidance: Unsafe Sexual Practices 02/25/2011 SUZIE JUSTIN DO V74.5 visit for: screening exam bact/spirochetal venereal disease 02/25/2011 SUZIE JUSTIN DO V24.2 visit for: exam 02/25/2011 SUZIE JUSTIN DO V65.45 Anticipatory Guidance: Unsafe Sexual Practices 02/25/2011 SUZIE JUSTIN DO V74.5 visit for: screening exam bact/spirochetal venereal disease 02/25/2011 SUZIE JUSTIN DO V24.2 visit for: exam 02/25/2011 SUZIE JUSTIN DO V65.45 Anticipatory Guidance: Unsafe Sexual Practices 02/25/2011 SUZIE JUSTIN DO V74.5 visit for: screening exam bact/spirochetal venereal disease 02/25/2011 V24.2 Visit For: Exam 02/25/2011 V65.45 Anticipatory Guidance: Unsafe Sexual Practices 02/25/2011 V74.5 visit for: screening exam bact/spirochetal venereal disease 02/25/2011 V24.2 Visit For: Exam 02/25/2011 V65.45 Anticipatory Guidance: Unsafe Sexual Practices 02/25/2011 V74.5 visit for: screening exam bact/spirochetal venereal disease 02/25/2011 V24.2 Visit For: Exam 02/25/2011 V65.45 Anticipatory Guidance: Unsafe Sexual Practices 02/25/2011 V74.5 visit for: screening exam bact/spirochetal venereal disease 02/25/2011 V24.2 Visit For: Exam 02/25/2011 V65.45 Anticipatory Guidance: Unsafe Sexual Practices 02/25/2011 V74.5 visit for: screening exam bact/spirochetal venereal disease 02/25/2011 V24.2 Visit For: Exam 02/25/2011 V65.45 Anticipatory Guidance: Unsafe Sexual Practices 02/25/2011 V74.5 visit for: screening exam bact/spirochetal venereal disease 02/25/2011 SUZIE JUSTIN DO V24.2 Visit For: Exam 02/25/2011 SUZIE JUSTIN DO V65.45 Anticipatory Guidance: Unsafe Sexual Practices 02/25/2011 SUZIE JUSTIN DO V74.5 visit for: screening exam bact/spirochetal venereal disease 02/25/2011 SUZIE JUSTIN DO V24.2 Visit For: Exam 02/25/2011 SUZIE JUSTIN DO V65.45 Anticipatory Guidance: Unsafe Sexual Practices 02/25/2011 SUZIE JUSTIN DO V74.5 visit for: screening exam bact/spirochetal venereal disease 02/25/2011 JOSIAH GARCIA PHD V24.2 Visit For: Exam 02/25/2011 JOSIAH GARCIA PHD V65.45 Anticipatory Guidance: Unsafe Sexual Practices 02/25/2011 JOSIAH GARCIA PHD V74.5 visit for: screening exam bact/ spirochetal venereal disease 02/25/2011 JOSIAH GARCIA PHD V24.2 Visit For: Exam 02/25/2011 JOSIAH GARCIA PHD V65.45 Anticipatory Guidance: Unsafe Sexual Practices 02/25/2011 JOSIAH GARCIA PHD V74.5 visit for: screening exam bact/ spirochetal venereal disease 02/25/2011 JOSIAH GARCIA PHD V24.2 Visit For: Exam 02/25/2011 JOSIAH GARCIA PHD V65.45 Anticipatory Guidance: Unsafe Sexual Practices 02/25/2011 JOSIAH GARCIA PHD V74.5 visit for: screening exam bact/ spirochetal venereal disease 02/25/2011 JOSIAH GARCIA PHD V24.2 Visit For: Exam 02/25/2011 JOSIAH GARCIA PHD V65.45 Anticipatory Guidance: Unsafe Sexual Practices 02/25/2011 JOSIAH GARCIA PHD V74.5 visit for: screening exam bact/ spirochetal venereal disease 02/25/2011 JOSIAH GARCIA PHD V24.2 Visit For: Exam 02/25/2011 JOSIAH GARCIA PHD V65.45 Anticipatory Guidance: Unsafe Sexual Practices 02/25/2011 JOSIAH GARCIA PHD V74.5 visit for: screening exam bact/ spirochetal venereal disease 02/25/2011 WILLY PURVIS PSYD L V24.2 Visit For: Exam 02/25/2011 WILLY PURVIS PSYD V65.45 Anticipatory Guidance: Unsafe Sexual Practices 02/25/2011 WILLY PURVIS PSYD V74.5 visit for: screening exam bact/ spirochetal venereal disease 12/14/2011 V22.2 INCIDENTAL 12/14/2011 V69.2 HIGH-RISK SEXUAL BEHAVIOR 12/14/2011 SUZIE JUSTIN DO V22.2 INCIDENTAL 12/14/2011 SUZIE JUSTIN DO V69.2 HIGH-RISK SEXUAL BEHAVIOR 12/14/2011 SUZIE JUSTIN DO K V22.2 INCIDENTAL 12/14/2011 SUZIE JUSTIN DO K V69.2 HIGH-RISK SEXUAL BEHAVIOR 12/14/2011 SUZIE JUSTIN DO K V22.2 INCIDENTAL 12/14/2011 SUZIE JUSTIN DO K V69.2 HIGH-RISK SEXUAL BEHAVIOR 12/14/2011 V22.2 Incidental 12/14/2011 V69.2 HIGH-RISK SEXUAL BEHAVIOR 12/14/2011 V22.2 Incidental 12/14/2011 V69.2 HIGH-RISK SEXUAL BEHAVIOR 12/14/2011 V22.2 Incidental 12/14/2011 V69.2 HIGH-RISK SEXUAL BEHAVIOR 12/14/2011 V22.2 Incidental 12/14/2011 V69.2 HIGH-RISK SEXUAL BEHAVIOR 12/14/2011 V22.2 Incidental 12/14/2011 V69.2 HIGH-RISK SEXUAL BEHAVIOR 12/14/2011 SUZIE JUSTIN DO K V22.2 Incidental 12/14/2011 SUZIE JUSTIN DO K V69.2 HIGH-RISK SEXUAL BEHAVIOR 12/14/2011 SUZIE JUSTIN DO K V22.2 Incidental 12/14/2011 SUZIE JUSTIN DO K V69.2 HIGH-RISK SEXUAL BEHAVIOR 12/14/2011 JOSIAH GARCIA PHD V22.2 Incidental 12/14/2011 JOSIAH GARCIA PHD V69.2 HIGH-RISK SEXUAL BEHAVIOR 12/14/2011 JOSIAH GARCIA PHD V22.2 Incidental 12/14/2011 JOSIAH GARCIA PHD V69.2 HIGH-RISK SEXUAL BEHAVIOR 12/14/2011 JOSIAH GARCIA PHD V22.2 Incidental 12/14/2011 JOSIAH GARCIA PHD V69.2 HIGH-RISK SEXUAL BEHAVIOR 12/14/2011 JOSIAH GARCIA PHD V22.2 Incidental 12/14/2011 JOSIAH GARCIA PHD V69.2 HIGH-RISK SEXUAL BEHAVIOR 12/14/2011 JOSIAH GARCIA PHD V22.2 Incidental 12/14/2011 JOSIAH GARCIA PHD V69.2 HIGH-RISK SEXUAL BEHAVIOR 12/14/2011 WILLY PURVIS PSYD V22.2 Incidental 12/14/2011 WILLY PURVIS PSYD V69.2 HIGH-RISK SEXUAL BEHAVIOR 05/09/2012 JUSTIN DO, SUZIE K 133.0 SCABIES 05/09/2012 JUSTIN DO, SUZIE K 623.5 LEUKORRHEA NOT SPECIFIED INFECTIVE 05/09/2012 JUSTIN DO, SUZIE K 788.1 DYSURIA 05/09/2012 JUSTIN DO, SUZIE K V23.9 , HIGH-RISK (UNSPEC) 05/09/2012 JUSTIN DO, SUZIE K 133.0 SCABIES 05/09/2012 JUSTIN DO, SUZIE K 623.5 LEUKORRHEA NOT SPECIFIED INFECTIVE 05/09/2012 JUSTIN DO, SUZIE K 788.1 DYSURIA 05/09/2012 JUSTIN DO, SUZIE K V23.9 , HIGH-RISK (UNSPEC) 05/09/2012 JUSTIN DO, SUZIE K 133.0 SCABIES 05/09/2012 JUSTIN DO, SUZIE K 623.5 LEUKORRHEA NOT SPECIFIED INFECTIVE 05/09/2012 JUSTIN DO, SUZIE K 788.1 DYSURIA 05/09/2012 JUSTIN DO, SUZIE K V23.9 , HIGH-RISK (UNSPEC) 05/09/2012 133.0 Scabies 05/09/2012 623.5 LEUKORRHEA NOT SPECIFIED INFECTIVE 05/09/2012 788.1 Dysuria 05/09/2012 V23.9 , HIGH-RISK (UNSPEC) 05/09/2012 133.0 Scabies 05/09/2012 623.5 LEUKORRHEA NOT SPECIFIED INFECTIVE 05/09/2012 788.1 Dysuria 05/09/2012 V23.9 , HIGH-RISK (UNSPEC) 05/09/2012 133.0 Scabies 05/09/2012 623.5 LEUKORRHEA NOT SPECIFIED INFECTIVE 05/09/2012 788.1 Dysuria 05/09/2012 V23.9 , HIGH-RISK (UNSPEC) 05/09/2012 133.0 Scabies 05/09/2012 623.5 LEUKORRHEA NOT SPECIFIED INFECTIVE 05/09/2012 788.1 Dysuria 05/09/2012 V23.9 , HIGH-RISK (UNSPEC) 05/09/2012 133.0 Scabies 05/09/2012 623.5 LEUKORRHEA NOT SPECIFIED INFECTIVE 05/09/2012 788.1 Dysuria 05/09/2012 V23.9 , HIGH-RISK (UNSPEC) 05/09/2012 JUSTIN DO SUZIE K 133.0 Scabies 05/09/2012 JUSTIN DO, SUZIE K 623.5 LEUKORRHEA NOT SPECIFIED INFECTIVE 05/09/2012 JUSTIN DO, SUZIE K 788.1 Dysuria 05/09/2012 JUSTIN DO, SUZIE K V23.9 , HIGH-RISK (UNSPEC) 05/09/2012 JUSTIN DO, SUZIE K 133.0 Scabies 05/09/2012 JUSTIN DO, SUZIE K 623.5 LEUKORRHEA NOT SPECIFIED INFECTIVE 05/09/2012 JUSTIN DO, SUZIE K 788.1 Dysuria 05/09/2012 JUSTIN DO, SUZIE K V23.9 , HIGH-RISK (UNSPEC) 05/09/2012 JOSIAH GARCIA PHD 133.0 Scabies 05/09/2012 JOSIAH GARCIA PHD 623.5 LEUKORRHEA NOT SPECIFIED INFECTIVE 05/09/2012 JOSIAH GARCIA PHD 788.1 Dysuria 05/09/2012 JOSIAH GARCIA PHD V23.9 , HIGH-RISK (UNSPEC) 05/09/2012 JOSIAH GARCIA PHD 133.0 Scabies 05/09/2012 JOSIAH GARCIA PHD 623.5 LEUKORRHEA NOT SPECIFIED INFECTIVE 05/09/2012 JOSIAH GARCIA PHD 788.1 Dysuria 05/09/2012 JOSIAH GARCIA PHD V23.9 , HIGH-RISK (UNSPEC) 05/09/2012 JOSIAH GARCIA PHD 133.0 Scabies 05/09/2012 JOSIAH GARCIA PHD 623.5 LEUKORRHEA NOT SPECIFIED INFECTIVE 05/09/2012 JOSIAH GARCIA PHD 788.1 Dysuria 05/09/2012 JOSIAH GARCIA PHD V23.9 , HIGH-RISK (UNSPEC) 05/09/2012 JOSIAH GARCIA PHD 133.0 Scabies 05/09/2012 JOSIAH GARCIA PHD 623.5 LEUKORRHEA NOT SPECIFIED INFECTIVE 05/09/2012 JOSIAH GARCIA PHD 788.1 Dysuria 05/09/2012 JOSIAH GARCIA PHD V23.9 , HIGH-RISK (UNSPEC) 05/09/2012 JOSIAH GARCIA PHD 133.0 Scabies 05/09/2012 JOSIAH GARCIA PHD 623.5 LEUKORRHEA NOT SPECIFIED INFECTIVE 05/09/2012 RADHA TY, JOSIAH Lara 788.1 Dysuria 05/09/2012 JOSIAH GARCIA PHD V23.9 , HIGH-RISK (UNSPEC) 05/09/2012 WILLY PURVIS PSYD 133.0 Scabies 05/09/2012 WILLY PURVIS PSYD 623.5 LEUKORRHEA NOT SPECIFIED INFECTIVE 05/09/2012 WILLY PURVIS PSYD 788.1 Dysuria 05/09/2012 WILLY PURVIS PSYD V23.9 , HIGH-RISK (UNSPEC) 06/06/2012 SUZIE JUSTIN DO V06.1 TDAP DX 06/06/2012 SUZIE JUSTIN DO V77.1 DIABETES SCREENING 06/06/2012 SUZIE JUSTIN DO V78.0 ANEMIA SCREENING 06/06/2012 SUZIE JUSTIN DO V06.1 TDAP DX 06/06/2012 SUZIE JUSTIN DO V77.1 DIABETES SCREENING 06/06/2012 SUZIE JUSTIN DO V78.0 ANEMIA SCREENING 06/06/2012 V06.1 TDAP DX 06/06/2012 V77.1 Diabetes Screening 06/06/2012 V78.0 Anemia Screening 06/06/2012 V06.1 TDAP DX 06/06/2012 V77.1 Diabetes Screening 06/06/2012 V78.0 Anemia Screening 06/06/2012 V06.1 TDAP DX 06/06/2012 V77.1 Diabetes Screening 06/06/2012 V78.0 Anemia Screening 06/06/2012 V06.1 TDAP DX 06/06/2012 V77.1 Diabetes Screening 06/06/2012 V78.0 Anemia Screening 06/06/2012 V06.1 TDAP DX 06/06/2012 V77.1 Diabetes Screening 06/06/2012 V78.0 Anemia Screening 06/06/2012 SUZIE JUSTIN DO V06.1 TDAP DX 06/06/2012 SUZIE JUSTIN DO V77.1 Diabetes Screening 06/06/2012 SUZIE JUSTIN DO V78.0 Anemia Screening 06/06/2012 SUZIE JUSTIN DO V06.1 TDAP DX 06/06/2012 JUSTIN DO, SUZIE K V77.1 Diabetes Screening 06/06/2012 NHAN ZUNIGA SUZIE Michael V78.0 Anemia Screening 06/06/2012 RADHA PHD, JOSIAH Lara V06.1 TDAP DX 06/06/2012 RADHA TY, JOSIAH Lara V77.1 Diabetes Screening 06/06/2012 RADHA TY, JOSIAH Lara V78.0 Anemia Screening 06/06/2012 RADHA TY, JOSIAH Lara V06.1 TDAP DX 06/06/2012 RADHA TY, JOSIAH Lara V77.1 Diabetes Screening 06/06/2012 RADHA PHD, JOSIAH Lara V78.0 Anemia Screening 06/06/2012 RADHA PHD, JOSIAH Lara V06.1 TDAP DX 06/06/2012 RADHA TY, JOSIAH Lara V77.1 Diabetes Screening 06/06/2012 RADHA TY, JOSIAH Lara V78.0 Anemia Screening 06/06/2012 RADHA PHD, JOSIAH Lara V06.1 TDAP DX 06/06/2012 RADHA TY, JOSIAH Lara V77.1 Diabetes Screening 06/06/2012 RADHA TY, JOSIAH Lara V78.0 Anemia Screening 06/06/2012 RADHA TY, JOSIAH Lara V06.1 TDAP DX 06/06/2012 RADHA TY, JOSIAH Lara V77.1 Diabetes Screening 06/06/2012 RADHA TY, JOSIAH Lara V78.0 Anemia Screening 06/06/2012 WILLY PURVIS PSYD L V06.1 TDAP DX 06/06/2012 WILLY PURVIS PSYD L V77.1 Diabetes Screening 06/06/2012 WILLY PURVIS PSYD L V78.0 Anemia Screening 07/13/2012 648.20 COMPL OF - ANEMIA 07/13/2012 648.20 COMPL OF - ANEMIA 07/13/2012 648.20 COMPL OF - ANEMIA 07/13/2012 648.20 COMPL OF - ANEMIA 07/13/2012 648.20 COMPL OF - ANEMIA 07/13/2012 SUZIE JUSTIN DO 648.20 COMPL OF - ANEMIA 07/13/2012 SUZIE JUSTIN DO 648.20 COMPL OF - ANEMIA 07/13/2012 RADHA TY, JOSIAH Lara 648.20 COMPL OF - ANEMIA 07/13/2012 RADHA TY, JOSIAH Lara 648.20 COMPL OF - ANEMIA 07/13/2012 JOSIAH GARCIA PHD 648.20 COMPL OF - ANEMIA 07/13/2012 JOSIAH GARCIA PHD 648.20 COMPL OF - ANEMIA 07/13/2012 JOSIAH GARCIA PHD 648.20 COMPL OF - ANEMIA 07/13/2012 WILLY PURVIS PSYD 648.20 COMPL OF - ANEMIA 08/01/2012 646.60 COMPL OF - UTI 08/01/2012 V28.6 GBS SCREENING 08/01/2012 646.60 COMPL OF - UTI 08/01/2012 V28.6 GBS SCREENING 08/01/2012 646.60 COMPL OF - UTI 08/01/2012 V28.6 GBS SCREENING 08/01/2012 646.60 COMPL OF - UTI 08/01/2012 V28.6 GBS SCREENING 08/01/2012 646.60 COMPL OF - UTI 08/01/2012 V28.6 GBS SCREENING 08/01/2012 JUSTIN DO, SUZIE K 646.60 COMPL OF - UTI 08/01/2012 JUSTIN DO, SUZIE K V28.6 GBS SCREENING 08/01/2012 JUSTIN DO, SUZIE K 646.60 COMPL OF - UTI 08/01/2012 JUSTIN DO, SUZIE K V28.6 GBS SCREENING 08/01/2012 JOSIAH GARCIA PHD 646.60 COMPL OF - UTI 08/01/2012 JOSIAH GARCIA PHD V28.6 GBS SCREENING 08/01/2012 JOSIAH GARCIA PHD 646.60 COMPL OF - UTI 08/01/2012 JOSIAH GARCIA PHD V28.6 GBS SCREENING 08/01/2012 JOSIAH GARCIA PHD 646.60 COMPL OF - UTI 08/01/2012 JOSIAH GARCIA PHD V28.6 GBS SCREENING 08/01/2012 JOSIAH GARCIA PHD 646.60 COMPL OF - UTI 08/01/2012 JOSIAH GARCIA PHD V28.6 GBS SCREENING 08/01/2012 JOSIAH GARCIA PHD 646.60 COMPL OF - UTI 08/01/2012 JOSIAH GARCIA PHD V28.6 GBS SCREENING 08/01/2012 WILLY PURVIS PSYD 646.60 COMPL OF - UTI 08/01/2012 WILLY PURVIS PSYD L V28.6 GBS SCREENING 10/06/2012 NGA VENTURA, MAURICE Myrick Ot 540.9 10/07/2012 DUARTE VENTURA, SOFÍA Warren Ot 789.00 ABDOMINAL PAIN, UNSPECIFIED SITE 10/07/2012 DUARTE VENTURA, SOFÍA Warren Ot 998.59 OTH POSTOPER INFECTION 10/14/2012 KAYLYN PERKINS MD Ot 338.18 OTHER ACUTE POSTOPERATIVE PAIN 10/14/2012 KAYLYN PERKINS MD Ot 599.0 URIN TRACT INFECTION NOS 10/14/2012 KAYLYN PERKINS MD Ot 789.00 ABDOMINAL PAIN, UNSPECIFIED SITE 10/17/2012 540.9 APPENDICITIS 10/17/2012 NHAN DOSUZIE K 540.9 APPENDICITIS 10/17/2012 JUSTIN DODENGA K 540.9 APPENDICITIS 10/17/2012 RADHA PHD, JOSIAH Lara 540.9 APPENDICITIS 10/17/2012 RADHA PHD, JOSIAH Lara 540.9 APPENDICITIS 10/17/2012 RADHA PHD, JOSIAH Lara 540.9 APPENDICITIS 10/17/2012 RADHA PHD, JOSIAH D 540.9 APPENDICITIS 10/17/2012 RADHA PHD, JOSIAH D 540.9 APPENDICITIS 10/17/2012 WILLY PURVIS PSYD L 540.9 APPENDICITIS 03/26/2013 DUARTE VENTURA, SOFÍA Warren Ot 553.1 UMBILICAL HERNIA 03/26/2013 DUARTE VENTURA, SOFÍA A Ot 646.83 PREG COMPL NEC-ANTEPART 03/26/2013 DUARTE VENTURA, SOFÍA A Ot 789.35 ABDOMINAL/PELVIC SWELLING,MASS/LUMP,TIMOTHY 04/13/2013 NANCI MATT MD Ot 553.1 UMBILICAL HERNIA 04/13/2013 NANCI MATT MD Ot 646.83 PREG COMPL NEC-ANTEPART 04/19/2013 NANCI MATT MD Ot 553.1 UMBILICAL HERNIA 04/19/2013 NANCI MATT MD Ot 646.83 PREG COMPL NEC-ANTEPART 04/21/2013 NGA VENTURA, MAURICE Myrick Ot 553.1 UMBILICAL HERNIA 04/21/2013 NGA VENTURA, MAURICE Myrick Ot 646.83 PREG COMPL NEC-ANTEPART 05/04/2013 ERICKA VENTURA, HOMA Lara Ot 338.18 OTHER ACUTE POSTOPERATIVE PAIN 05/04/2013 ERICKA VENTURA, HOMA Lara Ot 646.83 PREG COMPL NEC-ANTEPART 05/16/2013 RAMYA KILPATRICK APRN Ot 338.18 OTHER ACUTE POSTOPERATIVE PAIN 05/18/2013 NANCI MATT MD Ot 646.83 PREG COMPL NEC-ANTEPART 05/18/2013 NANCI MATT MD Ot 789.00 ABDOMINAL PAIN, UNSPECIFIED SITE 06/23/2013 JOSIAH GARCIA PHD 296.90 MOOD DISORDER NOS 06/23/2013 JOSIAH GARCIA PHD 300.00 AN ANXIETY UNSPEC 06/23/2013 JOSIAH GARCIA PHD 296.90 MOOD DISORDER NOS 06/23/2013 JOSIAH GARCIA PHD 300.00 AN ANXIETY UNSPEC 06/23/2013 JOSIAH GARCIA PHD 296.90 MOOD DISORDER NOS 06/23/2013 JOSIAH GARCIA PHD 300.00 AN ANXIETY UNSPEC 06/23/2013 JOSIAH GARCIA PHD 296.90 MOOD DISORDER NOS 06/23/2013 JOSIAH GARCIA PHD 300.00 AN ANXIETY UNSPEC 06/23/2013 JOSIAH GARCIA PHD 296.90 MOOD DISORDER NOS 06/23/2013 JOSIAH GARCIA PHD 300.00 AN ANXIETY UNSPEC 06/23/2013 WILLY PURVIS PSYD 296.90 MOOD DISORDER NOS 06/23/2013 WILLY PURVIS PSYD 300.00 AN ANXIETY UNSPEC 07/02/2013 SUZIE JUSTIN DO Ot 655.73 DECR MOVEMNT ANTEPARTUM CONDITION 07/15/2013 GIOVANNI MARTÍNEZ MD Ot 648.93 OTH CURR COND-ANTEPARTUM 07/15/2013 GIOVANNI MARTÍNEZ MD Ot 789.00 ABDOMINAL PAIN, UNSPECIFIED SITE 07/21/2013 NANCI MATT MD Ot 661.03 PRIM UTER INERT-ANTEPART 07/26/2013 NANCI MATT MD Ot V22.1 SUPERVIS OTH NORMAL PREG 07/30/2013 SUZIE JUSTIN DO Ot 648.93 OTH CURR COND-ANTEPARTUM 07/30/2013 SUZIE JUSTIN DO Ot 789.00 ABDOMINAL PAIN, UNSPECIFIED SITE 08/09/2013 NANCI MATT MD Ot 644.03 THRT JESSIE LABOR-ANTEPART 08/10/2013 NANCI MATT MD, Ot V22.1 SUPERVIS OTH NORMAL PREG 08/24/2013 ANNCI MATT MD Ot 285.9 ANEMIA NOS 08/24/2013 NANCI MATT MD Ot 648.21 ANEMIA-DELIVERED 08/24/2013 NANCI MATT MD, Ot V06.5 TETANUS-DIPHTHERIA [TD][DT] 08/24/2013 NANCI MATT MD, Ot V27.0 DELIVER-SINGLE LIVEBORN 03/27/2014 NANCI MATT MD, Ot 649.63 03/27/2014 NANCI MATT MD, Ot 641.93 03/27/2014 NANCI MATT MD, Ot 789.30 03/27/2014 NANCI MATT MD, Ot V28.81 03/27/2014 NANCI MATT MD, Ot V28.81 03/27/2014 TOÑA VILLARREAL DO Ot 626.8 MENSTRUAL DISORDER NEC 03/27/2014 TOÑA VILLARREAL DO Ot V45.51 PRESENCE OF INTRAUTERINE CONTRACEPTIVE D 03/28/2014 NANCI MATT MD Ot 649.63 03/28/2014 NANCI MATT MD Ot 641.93 03/28/2014 NANCI MATT MD Ot 789.30 03/28/2014 NANCI MATT MD Ot V28.81 03/28/2014 NANCI MATT MD, Ot V28.81 04/25/2014 TOÑA VILLARREAL DO Ot 553.1 UMBILICAL HERNIA 04/25/2014 TOÑA VILLARREAL DO Ot 789.06 ABDOMINAL PAIN, EPIGASTRIC 05/23/2014 NGA VENTURA, MAURICE Myrick Ot 553.21 INCISIONAL HERNIA 01/26/2015 NANCI MATT MD Ot 649.63 01/26/2015 NANCI MATT MD Ot 641.93 01/26/2015 NANCI MATT MD Ot 789.30 01/26/2015 NANCI MATT MD Ot V28.81 01/26/2015 NANCI MATT MD Ot V28.81 01/26/2015 MAURICE SYLVESTER MD Ot 553.21 01/26/2015 NGA VENTURA, MAURICE M Ot V72.63 01/26/2015 NGA VENTURA, MAURICE M Ot V74.8 01/26/2015 RAMYA KILPATRICK APRN Ot R10.10 UPPER ABDOMINAL PAIN, UNSPECIFIED 02/05/2015 SHAKA VENTURA, NANCI Garcia Ot 649.63 02/05/2015 SHAKA VENTURA, NANCI Garcia Ot 641.93 02/05/2015 SHAKA VENTURA, NANCI Garcia Ot 789.30 02/05/2015 SHAKA VENTURA, NANCI Garcia Ot V28.81 02/05/2015 SHAKA VENTURA, NANCI Garcia Ot V28.81 02/05/2015 NGA VENTURA, MAURICE M Ot 553.21 02/05/2015 NGA VENTURA, MAURICE M Ot V72.63 02/05/2015 NGA VENTURA, MAURICE M Ot V74.8 02/26/2015 FAVIOLA MEDINA BURLAP SPREADER Ot R10.33 03/17/2015 SOO TAFOYA Ot N93.9 ABNORMAL UTERINE AND VAGINAL BLEEDING, U 08/29/2015 RAMYA KILPATRICK APRN Ot O20.0 THREATENED 08/29/2015 RAMYA KILPATRICK APRN Ot O23.41 UNSP INFCT OF URINARY TRACT IN 08/29/2015 RAMYA KILPATRICK APRN Ot Z3A.11 11 WEEKS GESTATION OF 08/30/2015 RAMYA KILPATRICK APRN Ot O20.0 THREATENED 08/30/2015 RAMYA KILPATRICK APRN Ot O23.41 UNSP INFCT OF URINARY TRACT IN 08/30/2015 RAMYA KILPATRICK APRN Ot Z3A.11 11 WEEKS GESTATION OF 09/11/2015 FAVIOLA MORIN DO, Ot J06.9 ACUTE UPPER RESPIRATORY INFECTION, UNSPE 09/11/2015 FAVIOLA MORIN DO Ot O99.511 DISEASES OF THE RESP SYS COMP , 09/11/2015 FAVIOLA MORIN DO Ot Z3A.01 LESS THAN 8 WEEKS GESTATION OF 09/22/2015 SOO TAFOYA Ot J03.90 ACUTE TONSILLITIS, UNSPECIFIED 09/22/2015 SOO TAFOYA Ot O99.511 DISEASES OF THE RESP SYS COMP , 09/22/2015 [place] PA, SOO L Ot Z3A.08 8 WEEKS GESTATION OF 09/23/2015 HOMA BARNETT MD, Ot J02.9 ACUTE PHARYNGITIS, UNSPECIFIED 09/23/2015 HOMA BARNETT MD Ot O20.0 THREATENED 09/23/2015 HOMA BARNETT MD Ot O23.41 UNSP INFCT OF URINARY TRACT IN 09/23/2015 HOMA BARNETT MD, Ot O99.511 DISEASES OF THE RESP SYS COMP , 09/23/2015 HOMA BARNETT MD, Ot Z3A.01 LESS THAN 8 WEEKS GESTATION OF 09/23/2015 SOO TAFOYA Ot J03.90 ACUTE TONSILLITIS, UNSPECIFIED 09/23/2015 SOO TAFOYA Ot O99.511 DISEASES OF THE RESP SYS COMP , 09/23/2015 SOO TAFOYA Ot Z3A.08 8 WEEKS GESTATION OF 09/24/2015 HOMA BARNETT MD, Ot J02.9 ACUTE PHARYNGITIS, UNSPECIFIED 09/24/2015 HOMA BARNETT MD Ot O20.0 THREATENED 09/24/2015 HOMA BARNETT MD Ot O23.41 UNSP INFCT OF URINARY TRACT IN 09/24/2015 HOMA BARNETT MD, Ot O99.511 DISEASES OF THE RESP SYS COMP , 09/24/2015 HOMA BARNETT MD, Ot Z3A.01 LESS THAN 8 WEEKS GESTATION OF 09/28/2015 SOO TAFOYA Ot J03.90 ACUTE TONSILLITIS, UNSPECIFIED 09/28/2015 SOO TAFOYA Ot O99.511 DISEASES OF THE RESP SYS COMP , 09/28/2015 SOO TAFOYA Ot Z3A.08 8 WEEKS GESTATION OF 11/11/2015 NANCI MATT MD Ot 649.63 UTERINE SIZE DATE DISCREPANCY, ANTEPARTU 11/11/2015 NANCI MATT MD Ot 641.93 ANTEPART HEM NOS-ANTEPAR 11/11/2015 NANCI MATT MD Ot 789.30 ABDOMINAL/PELVIC SWELLING,MASS/LUMP UNSP 11/11/2015 NANCI MATT MD Ot V28.81 ENCOUNTER FOR ANATOMIC SURVEY 11/11/2015 NANCI MATT MD Ot V28.81 ENCOUNTER FOR ANATOMIC SURVEY 11/11/2015 NGA VENTURA, MAURICE Myrick Ot 553.21 INCISIONAL HERNIA 11/11/2015 NGA VENTURA, MAURICE Myrick Ot V72.63 PRE-PROCEDURAL LABORATORY EXAMINATION 11/11/2015 NGA VENTURA, MAURICE Myrick Ot V74.8 SCREEN-BACTERIAL DIS NEC 11/11/2015 FAVIOLA MEDINA Ot R10.33 PERIUMBILICAL PAIN 11/11/2015 RAMYA KILPATRICK HARBOR MASTER Ot N39.0 URINARY TRACT INFECTION, SITE NOT SPECIF 11/11/2015 RAMYA KILPATRICK HARBOR MASTER Ot O03.9 COMPLETE OR UNSP SPONTANEOUS [place] 11/11/2015 RAMYA KILPATRICK APRN Ot R10.30 LOWER ABDOMINAL PAIN, UNSPECIFIED 11/11/2015 RAMYA KILPATRICK APRN Ot Z3A.16 16 WEEKS GESTATION OF 11/13/2015 RAMYA KILPATRICK APRN Ot N39.0 URINARY TRACT INFECTION, SITE NOT SPECIF 11/13/2015 RAMYA KILPATRICK HARBOR MASTER Ot O03.9 COMPLETE OR UNSP SPONTANEOUS [place] 11/13/2015 RAMYA KILPATRICK HARBOR MASTER Ot R10.30 LOWER ABDOMINAL PAIN, UNSPECIFIED 11/13/2015 RAMYA KILPATRICK HARBOR MASTER Ot Z3A.16 16 WEEKS GESTATION OF 12/30/2015 HOMA BARNETT MD Ot O26.891 OT RELATED CONDITIONS, FIRST 12/30/2015 HOMA BARNETT MD Ot R10.33 PERIUMBILICAL PAIN 12/30/2015 HOMA BARNETT MD Ot R11.2 NAUSEA WITH VOMITING, UNSPECIFIED 12/30/2015 HOMA BARNETT MD Ot Z3A.01 LESS THAN 8 WEEKS GESTATION OF 12/31/2015 HOMA BARNETT MD Ot O26.891 OT RELATED CONDITIONS, FIRST 12/31/2015 HOMA BARNETT MD Ot R10.33 PERIUMBILICAL PAIN 12/31/2015 HOMA BARNETT MD Ot R11.2 NAUSEA WITH VOMITING, UNSPECIFIED 12/31/2015 HOMA BARNETT MD Ot Z3A.01 LESS THAN 8 WEEKS GESTATION OF 01/02/2016 HOMA BARNETT MD Ot O26.891 OTH RELATED CONDITIONS, FIRST 01/02/2016 HOMA BARNETT MD Ot R10.33 PERIUMBILICAL PAIN 01/02/2016 HOMA BARNETT MD Ot R11.2 NAUSEA WITH VOMITING, UNSPECIFIED 01/02/2016 HOMA BARNETT MD Ot Z3A.01 LESS THAN 8 WEEKS GESTATION OF 01/06/2016 HOMA BARNETT MD, Ot N39.0 URINARY TRACT INFECTION, SITE NOT SPECIF 01/06/2016 HOMA BARNETT MD, Ot R10.2 PELVIC AND PERINEAL PAIN 01/06/2016 HOMA BARNETT MD, Ot R11.0 NAUSEA 01/07/2016 HOMA BARNETT MD, Ot N39.0 URINARY TRACT INFECTION, SITE NOT SPECIF 01/07/2016 HOMA BARNETT MD Ot R10.2 PELVIC AND PERINEAL PAIN 01/07/2016 HOMA BARNETT MD Ot R11.0 NAUSEA 01/08/2016 HOMA BARNETT MD, Ot N39.0 URINARY TRACT INFECTION, SITE NOT SPECIF 01/08/2016 HOMA BARNETT MD, Ot R10.2 PELVIC AND PERINEAL PAIN 01/08/2016 HOMA BARNETT MD, Ot R11.0 NAUSEA 01/24/2016 NANCI MATT MD Ot 649.63 UTERINE SIZE DATE DISCREPANCY, ANTEPARTU 01/24/2016 NANCI MATT MD Ot 641.93 ANTEPART HEM NOS-ANTEPAR 01/24/2016 NANCI MATT MD Ot 789.30 ABDOMINAL/PELVIC SWELLING,MASS/LUMP UNSP 01/24/2016 NANCI MATT MD Ot V28.81 ENCOUNTER FOR ANATOMIC SURVEY 01/24/2016 NANCI MATT MD, Ot V28.81 ENCOUNTER FOR ANATOMIC SURVEY 01/24/2016 NGA VENTURA, MAURICE Myrick Ot 553.21 INCISIONAL HERNIA 01/24/2016 MAURICE SYLVESTER MD Ot V72.63 PRE-PROCEDURAL LABORATORY EXAMINATION 01/24/2016 MAURICE SYLVESTER MD Ot V74.8 SCREEN-BACTERIAL DIS NEC 01/24/2016 FAVIOLA MEDINA Ot R10.33 PERIUMBILICAL PAIN 01/24/2016 PHIL DO, TOÑA K Ot O20.0 THREATENED 01/24/2016 PHIL DO, TOÑA K Ot Z3A.08 8 WEEKS GESTATION OF 01/27/2016 PHIL DO, TOÑA K Ot O20.0 THREATENED 01/27/2016 PHIL DO, TOÑA K Ot Z3A.08 8 WEEKS GESTATION OF 03/08/2016 PHIL DO, TOÑA K Ot O20.0 THREATENED 03/08/2016 PHIL DO, TOÑA K Ot O23.41 UNSP INFCT OF URINARY TRACT IN 03/08/2016 PHIL DO, TOÑA K Ot O23.591 INFECTION OTH PRT GENITL TRCT IN PREGNAN 03/08/2016 PHIL DO, TOÑA K Ot Z3A.01 LESS THAN 8 WEEKS GESTATION OF 03/10/2016 PHIL DO, TOÑA K Ot O20.0 THREATENED 03/10/2016 [place] DO, TOÑA K Ot O23.41 UNSP INFCT OF URINARY TRACT IN 03/10/2016 PHIL DO, TOÑA K Ot O23.591 INFECTION OTH PRT GENITL TRCT IN PREGNAN 03/10/2016 [place] DO, TOÑA K Ot Z3A.01 LESS THAN 8 WEEKS GESTATION OF 03/11/2016 PHIL DO, TOÑA K Ot O20.0 THREATENED 03/11/2016 PHIL DO, TOÑA K Ot O23.41 UNSP INFCT OF URINARY TRACT IN 03/11/2016 PHIL DO, TOÑA K Ot O23.591 INFECTION OTH PRT GENITL TRCT IN PREGNAN 03/11/2016 PHIL DO, TOÑA K Ot Z3A.01 LESS THAN 8 WEEKS GESTATION OF 03/13/2016 PHIL DO, TOÑA K Ot O20.0 THREATENED 03/13/2016 PHIL DO, TOÑA K Ot O23.41 UNSP INFCT OF URINARY TRACT IN 03/13/2016 PHIL DO, TOÑA K Ot O23.591 INFECTION OTH PRT GENITL TRCT IN PREGNAN 03/13/2016 PHIL DO, TOÑA K Ot Z3A.01 LESS THAN 8 WEEKS GESTATION OF 03/14/2016 TOÑA VILLARREAL DO Ot O20.0 THREATENED 03/14/2016 TOÑA VILLARREAL DO Ot O23.41 UNSP INFCT OF URINARY TRACT IN 03/14/2016 TOÑA VILLARREAL DO Ot O23.591 INFECTION OTH PRT GENITL TRCT IN PREGNAN 03/14/2016 TOÑA VILLARREAL DO Ot Z3A.01 LESS THAN 8 WEEKS GESTATION OF Procedures Code Description [place] [address] US OB - COMPLETE >14 WEEKS 01/04/2012 29753 PAP SMEAR 2011 89481 US OB - EARLY <14 WEEKS 04/07/2012 66486 URINE TEST (IN-HOUSE) 05/09/2012 71541 UA W/ CULTURE IF INDICATED 05/09/2012 57165 CULTURE UROGENITAL 05/09/2012 17057 ROUTINE VENIPUNCTURE 06/06/2012 67765 UA OB DIP 2012 48054 CBC 06/06/2012 52603 GLUCOSE IVY 1 HOUR 06/06/2012 66183 UA OB DIP 2012 76317 UA W/ CULTURE IF INDICATED 08/01/2012 60705 CULTURE GROUP B STREP VAG 08/02/2012 00045 URINE TEST (IN-HOUSE) 12/26/2012 69969 PSYCH DIAGNOSTIC EVALUATION 06/23/2013 62841 PSYTX PT&/FAMILY 45 MINUTES 08/03/2013 73.01 08/22/2013 93016 PSYTX PT&/FAMILY 45 MINUTES 11/14/2013 84288 PSYTX PT&/FAMILY 45 MINUTES 01/02/2014 40766 PSYTX PT&/FAMILY 45 MINUTES 03/23/2014 11434 PSYTX PT&/FAMILY 45 MINUTES 07/10/2014 Results Test Result Range Complete blood count (CBC) with automated white blood cell (WBC) differential - 11/11/15 11:20 Blood leukocytes automated count (number/volume) 9.4 10*3/ uL 4.3-11.0 Blood erythrocytes automated count (number/volume) 4.30 10*6 /uL 4.35-5.85 Venous blood hemoglobin measurement (mass/volume) 11.7 g/dL 11.5-16.0 Blood hematocrit (volume fraction) 36 % 35-52 Automated erythrocyte mean corpuscular volume 84 [foz_us] 80-99 Automated erythrocyte mean corpuscular hemoglobin (mass per erythrocyte) 27 pg 25-34 Automated erythrocyte mean corpuscular hemoglobin concentration measurement ( mass/volume) 33 g/dL 32-36 Automated erythrocyte distribution width ratio 14.8 % 10.0-14.5 Automated blood platelet count (count/volume) 339 10*3/uL 130-400 Automated blood platelet mean volume measurement 9.2 [foz_us ] 7.4-10.4 Automated blood neutrophils/100 leukocytes 55 % 42-75 Automated blood lymphocytes/100 leukocytes 36 % 12-44 Blood monocytes/100 leukocytes 7 % 0-12 Automated blood eosinophils/100 leukocytes 2 % 0-10 Automated blood basophils/100 leukocytes 0 % 0-10 Blood neutrophils automated count (number/volume) 5.2 10*3 1.8-7.8 Blood lymphocytes automated count (number/volume) 3.4 10*3 1.0-4.0 Blood monocytes automated count (number/volume) 0.7 10*3 0.0-1.0 Automated eosinophil count 0.1 10*3/uL 0.0-0.3 Automated blood basophil count (count/volume) 0.0 10*3/uL 0.0-0.1 Serum or plasma choriogonadotropin measurement (units/volume) - 11/11/15 11:20 Serum or plasma choriogonadotropin measurement (units/volume) 10 m[iU]/mL <5 Complete urinalysis with reflex to culture - 11/11/15 13:15 Urine color determination YELLOW NRG Urine clarity determination SLIGHTLY CLOUDY NRG Urine pH measurement by test strip 5 5- 9 Specific gravity of urine by test strip 1.020 1.016-1.022 Urine protein assay by test strip, semi-quantitative 1+ NEGATIVE Urine glucose detection by automated test strip NEGATIVE NEGATIVE Erythrocytes detection in urine sediment by light microscopy NEGATIVE NEGATIVE Urine ketones detection by automated test strip NEGATIVE NEGATIVE Urine nitrite detection by test strip NEGATIVE NEGATIVE Urine total bilirubin detection by test strip NEGATIVE NEGATIVE Urine urobilinogen measurement by automated test strip (mass/volume) NORMAL NORMAL Urine leukocyte esterase detection by dipstick 3+ NEGATIVE Automated urine sediment erythrocyte count by microscopy (number/high power field) NONE NRG Automated urine sediment leukocyte count by microscopy (number/high power field ) [HPF] NRG Bacteria detection in urine sediment by light microscopy NEGATIVE NRG Squamous epithelial cells detection in urine sediment by light microscopy >50 NRG Crystals detection in urine sediment by light microscopy NONE NRG Casts detection in urine sediment by light microscopy NONE NRG Mucus detection in urine sediment by light microscopy LARGE NRG Complete urinalysis with reflex to culture NO NRG Complete urinalysis with reflex to culture - 12/29/15 23:41 Urine color determination YELLOW NRG Urine clarity determination VERY CLOUDY NRG Urine pH measurement by test strip 5 5- 9 Specific gravity of urine by test strip 1.020 1.016-1.022 Urine protein assay by test strip, semi-quantitative 1+ NEGATIVE Urine glucose detection by automated test strip NEGATIVE NEGATIVE Erythrocytes detection in urine sediment by light microscopy NEGATIVE NEGATIVE Urine ketones detection by automated test strip NEGATIVE NEGATIVE Urine nitrite detection by test strip NEGATIVE NEGATIVE Urine total bilirubin detection by test strip NEGATIVE NEGATIVE Urine urobilinogen measurement by automated test strip (mass/volume) NORMAL NORMAL Urine leukocyte esterase detection by dipstick 3+ NEGATIVE Automated urine sediment erythrocyte count by microscopy (number/high power field) [HPF] NRG Automated urine sediment leukocyte count by microscopy (number/high power field ) [HPF] NRG Bacteria detection in urine sediment by light microscopy FEW NRG Squamous epithelial cells detection in urine sediment by light microscopy 25-50 NRG Crystals detection in urine sediment by light microscopy NONE NRG Casts detection in urine sediment by light microscopy NONE NRG Mucus detection in urine sediment by light microscopy NEGATIVE NRG Complete urinalysis with reflex to culture YES NRG Bacterial urine culture - 12/29/15 23:41 Bacterial urine culture [id number] NRG COLONY COUNT >100,000/ML NRG FTX;REPORTABLE SENSITIVITIES NOT ROUTINELY PERFORMED NRG URINE CULTURE RESULTS <10,000/ML PLUS NRG FREE TEXT ENTRY 2 ON THESE ORGANISMS. NRG Complete blood count (CBC) with automated white blood cell (WBC) differential - 12/29/15 23:55 Blood leukocytes automated count (number/volume) 8.4 10*3/ uL 4.3-11.0 Blood erythrocytes automated count (number/volume) 4.07 10*6 /uL 4.35-5.85 Venous blood hemoglobin measurement (mass/volume) 10.9 g/dL 11.5-16.0 Blood hematocrit (volume fraction) 34 % 35-52 Automated erythrocyte mean corpuscular volume 83 [foz_us] 80-99 Automated erythrocyte mean corpuscular hemoglobin (mass per erythrocyte) 27 pg 25-34 Automated erythrocyte mean corpuscular hemoglobin concentration measurement ( mass/volume) 32 g/dL 32-36 Automated erythrocyte distribution width ratio 14.4 % 10.0-14.5 Automated blood platelet count (count/volume) 347 10*3/uL 130-400 Automated blood platelet mean volume measurement 9.3 [foz_us ] 7.4-10.4 Automated blood neutrophils/100 leukocytes 53 % 42-75 Automated blood lymphocytes/100 leukocytes 40 % 12-44 Blood monocytes/100 leukocytes 6 % 0-12 Automated blood eosinophils/100 leukocytes 1 % 0-10 Automated blood basophils/100 leukocytes 0 % 0-10 Blood neutrophils automated count (number/volume) 4.4 10*3 1.8-7.8 Blood lymphocytes automated count (number/volume) 3.4 10*3 1.0-4.0 Blood monocytes automated count (number/volume) 0.5 10*3 0.0-1.0 Automated eosinophil count 0.1 10*3/uL 0.0-0.3 Automated blood basophil count (count/volume) 0.0 10*3/uL 0.0-0.1 Comprehensive metabolic panel - 12/29/15 23:55 Serum or plasma sodium measurement (moles/volume) 139 mmol/ L 135-145 Serum or plasma potassium measurement (moles/volume) 3.5 mmol/L 3.6-5.0 Serum or plasma chloride measurement (moles/volume) 107 mmol /L 98-107 Carbon dioxide 19 mmol/L 21-32 Serum or plasma anion gap determination (moles/volume) 13 mmol/L 5-14 Serum or plasma urea nitrogen measurement (mass/volume) 10 mg/dL 7-18 Serum or plasma creatinine measurement (mass/volume) 0.79 mg /dL 0.60-1.30 Serum or plasma urea nitrogen/creatinine mass ratio 13 NRG Serum or plasma creatinine measurement with calculation of estimated glomerular filtration rate > NRG Serum or plasma glucose measurement (mass/volume) 94 mg/dL 70-105 Serum or plasma calcium measurement (mass/volume) 9.2 mg/dL 8.5-10.1 Serum or plasma total bilirubin measurement (mass/volume) 0.4 mg/dL 0.1-1.0 Serum or plasma alkaline phosphatase measurement (enzymatic activity/volume) 80 U/L 40-136 Serum or plasma aspartate aminotransferase measurement (enzymatic activity/ volume) 17 U/L 5-34 Serum or plasma alanine aminotransferase measurement (enzymatic activity/volume ) 18 U/L 0-55 Serum or plasma protein measurement (mass/volume) 7.1 g/dL 6.4-8.2 Serum or plasma albumin measurement (mass/volume) 4.0 g/dL 3.2-4.5 Lipase - 12/29/15 23:55 Lipase 40 U/L 8-78 Serum or plasma choriogonadotropin measurement (units/volume) - 12/29/15 23:55 Serum or plasma choriogonadotropin measurement (units/volume) 607 m[iU]/mL <5 Complete urinalysis with reflex to culture - 01/06/16 03:20 Urine color determination YELLOW NRG Urine clarity determination SLIGHTLY CLOUDY NRG Urine pH measurement by test strip 6 5- 9 Specific gravity of urine by test strip 1.015 1.016-1.022 Urine protein assay by test strip, semi-quantitative NEGATIVE NEGATIVE Urine glucose detection by automated test strip NEGATIVE NEGATIVE Erythrocytes detection in urine sediment by light microscopy 1+ NEGATIVE Urine ketones detection by automated test strip NEGATIVE NEGATIVE Urine nitrite detection by test strip NEGATIVE NEGATIVE Urine total bilirubin detection by test strip NEGATIVE NEGATIVE Urine urobilinogen measurement by automated test strip (mass/volume) NORMAL NORMAL Urine leukocyte esterase detection by dipstick 3+ NEGATIVE Automated urine sediment erythrocyte count by microscopy (number/high power field) [HPF] NRG Automated urine sediment leukocyte count by microscopy (number/high power field ) [HPF] NRG Bacteria detection in urine sediment by light microscopy MODERATE NRG Squamous epithelial cells detection in urine sediment by light microscopy 25-50 NRG Crystals detection in urine sediment by light microscopy NONE NRG Casts detection in urine sediment by light microscopy NONE NRG Mucus detection in urine sediment by light microscopy NEGATIVE NRG Complete urinalysis with reflex to culture YES NRG Bacterial urine culture - 01/06/16 03:20 URINE CULTURE RESULTS <10,000/ML NRG Complete blood count (CBC) with automated white blood cell (WBC) differential - 01/06/16 03:30 Blood leukocytes automated count (number/volume) 9.3 10*3/ uL 4.3-11.0 Blood erythrocytes automated count (number/volume) 3.98 10*6 /uL 4.35-5.85 Venous blood hemoglobin measurement (mass/volume) 11.0 g/dL 11.5-16.0 Blood hematocrit (volume fraction) 34 % 35-52 Automated erythrocyte mean corpuscular volume 85 [foz_us] 80-99 Automated erythrocyte mean corpuscular hemoglobin (mass per erythrocyte) 28 pg 25-34 Automated erythrocyte mean corpuscular hemoglobin concentration measurement ( mass/volume) 33 g/dL 32-36 Automated erythrocyte distribution width ratio 14.9 % 10.0-14.5 Automated blood platelet count (count/volume) 308 10*3/uL 130-400 Automated blood platelet mean volume measurement 9.4 [foz_us ] 7.4-10.4 Automated blood neutrophils/100 leukocytes 56 % 42-75 Automated blood lymphocytes/100 leukocytes 37 % 12-44 Blood monocytes/100 leukocytes 6 % 0-12 Automated blood eosinophils/100 leukocytes 1 % 0-10 Automated blood basophils/100 leukocytes 0 % 0-10 Blood neutrophils automated count (number/volume) 5.2 10*3 1.8-7.8 Blood lymphocytes automated count (number/volume) 3.4 10*3 1.0-4.0 Blood monocytes automated count (number/volume) 0.5 10*3 0.0-1.0 Automated eosinophil count 0.1 10*3/uL 0.0-0.3 Automated blood basophil count (count/volume) 0.0 10*3/uL 0.0-0.1 Comprehensive metabolic panel - 01/06/16 03:30 Serum or plasma sodium measurement (moles/volume) 136 mmol/ L 135-145 Serum or plasma potassium measurement (moles/volume) 3.5 mmol/L 3.6-5.0 Serum or plasma chloride measurement (moles/volume) 107 mmol /L 98-107 Carbon dioxide 18 mmol/L 21-32 Serum or plasma anion gap determination (moles/volume) 11 mmol/L 5-14 Serum or plasma urea nitrogen measurement (mass/volume) 9 mg /dL 7-18 Serum or plasma creatinine measurement (mass/volume) 0.67 mg /dL 0.60-1.30 Serum or plasma urea nitrogen/creatinine mass ratio 13 NRG Serum or plasma creatinine measurement with calculation of estimated glomerular filtration rate > NRG Serum or plasma glucose measurement (mass/volume) 110 mg/dL 70-105 Serum or plasma calcium measurement (mass/volume) 9.2 mg/dL 8.5-10.1 Serum or plasma total bilirubin measurement (mass/volume) 0.3 mg/dL 0.1-1.0 Serum or plasma alkaline phosphatase measurement (enzymatic activity/volume) 75 U/L 40-136 Serum or plasma aspartate aminotransferase measurement (enzymatic activity/ volume) 15 U/L 5-34 Serum or plasma alanine aminotransferase measurement (enzymatic activity/volume ) 19 U/L 0-55 Serum or plasma protein measurement (mass/volume) 7.0 g/dL 6.4-8.2 Serum or plasma albumin measurement (mass/volume) 3.9 g/dL 3.2-4.5 Serum or plasma choriogonadotropin measurement (units/volume) - 01/06/16 03:30 Serum or plasma choriogonadotropin measurement (units/volume) 7973 m[iU]/mL <5 Complete blood count (CBC) with automated white blood cell (WBC) differential - 01/24/16 00:36 Blood leukocytes automated count (number/volume) 9.8 10*3/ uL 4.3-11.0 Blood erythrocytes automated count (number/volume) 4.37 10*6 /uL 4.35-5.85 Venous blood hemoglobin measurement (mass/volume) 11.9 g/dL 11.5-16.0 Blood hematocrit (volume fraction) 37 % 35-52 Automated erythrocyte mean corpuscular volume 84 [foz_us] 80-99 Automated erythrocyte mean corpuscular hemoglobin (mass per erythrocyte) 27 pg 25-34 Automated erythrocyte mean corpuscular hemoglobin concentration measurement ( mass/volume) 33 g/dL 32-36 Automated erythrocyte distribution width ratio 14.2 % 10.0-14.5 Automated blood platelet count (count/volume) 342 10*3/uL 130-400 Automated blood platelet mean volume measurement 10.0 [foz_ us] 7.4-10.4 Automated blood neutrophils/100 leukocytes 63 % 42-75 Automated blood lymphocytes/100 leukocytes 30 % 12-44 Blood monocytes/100 leukocytes 6 % 0-12 Automated blood eosinophils/100 leukocytes 1 % 0-10 Automated blood basophils/100 leukocytes 0 % 0-10 Blood neutrophils automated count (number/volume) 6.2 10*3 1.8-7.8 Blood lymphocytes automated count (number/volume) 2.9 10*3 1.0-4.0 Blood monocytes automated count (number/volume) 0.6 10*3 0.0-1.0 Automated eosinophil count 0.1 10*3/uL 0.0-0.3 Automated blood basophil count (count/volume) 0.0 10*3/uL 0.0-0.1 Whole blood basic metabolic panel - 01/24/16 00:36 Serum or plasma sodium measurement (moles/volume) 137 mmol/ L 135-145 Serum or plasma potassium measurement (moles/volume) 3.6 mmol/L 3.6-5.0 Serum or plasma chloride measurement (moles/volume) 104 mmol /L 98-107 Carbon dioxide 21 mmol/L 21-32 Serum or plasma anion gap determination (moles/volume) 12 mmol/L 5-14 Serum or plasma urea nitrogen measurement (mass/volume) 8 mg /dL 7-18 Serum or plasma creatinine measurement (mass/volume) 0.68 mg /dL 0.60-1.30 Serum or plasma urea nitrogen/creatinine mass ratio 12 NRG Serum or plasma creatinine measurement with calculation of estimated glomerular filtration rate > NRG Serum or plasma glucose measurement (mass/volume) 101 mg/dL 70-105 Serum or plasma calcium measurement (mass/volume) 9.5 mg/dL 8.5-10.1 Serum or plasma choriogonadotropin measurement (units/volume) - 01/24/16 00:36 Serum or plasma choriogonadotropin measurement (units/volume) 209525 m[iU]/mL <5 Complete urinalysis with reflex to culture - 03/08/16 00:50 Urine color determination YELLOW NRG Urine clarity determination VERY CLOUDY NRG Urine pH measurement by test strip 5 5- 9 Specific gravity of urine by test strip 1.030 1.016-1.022 Urine protein assay by test strip, semi-quantitative 1+ NEGATIVE Urine glucose detection by automated test strip NEGATIVE NEGATIVE Erythrocytes detection in urine sediment by light microscopy 1+ NEGATIVE Urine ketones detection by automated test strip 2+ NEGATIVE Urine nitrite detection by test strip NEGATIVE NEGATIVE Urine total bilirubin detection by test strip NEGATIVE NEGATIVE Urine urobilinogen measurement by automated test strip (mass/volume) NORMAL NORMAL Urine leukocyte esterase detection by dipstick 3+ NEGATIVE Automated urine sediment erythrocyte count by microscopy (number/high power field) RARE NRG Automated urine sediment leukocyte count by microscopy (number/high power field ) [HPF] NRG Bacteria detection in urine sediment by light microscopy MODERATE NRG Squamous epithelial cells detection in urine sediment by light microscopy 5-10 NRG Crystals detection in urine sediment by light microscopy NONE NRG Casts detection in urine sediment by light microscopy NONE NRG Mucus detection in urine sediment by light microscopy MODERATE NRG Complete urinalysis with reflex to culture YES NRG Urine drug screening test - 03/08/16 00:50 Urine phencyclidine detection by screening method NEGATIVE NEGATIVE Urine benzodiazepines detection by screening method NEGATIVE NEGATIVE Urine cocaine detection NEGATIVE NEGATIVE Urine amphetamines detection by screening method NEGATIVE NEGATIVE Urine methamphetamine detection by screening method NEGATIVE NEGATIVE Urine cannabinoids detection by screening method NEGATIVE NEGATIVE Urine opiates detection by screening method NEGATIVE NEGATIVE Urine barbiturates detection NEGATIVE NEGATIVE Screening urine tricyclic antidepressants detection NEGATIVE NEGATIVE Urine methadone detection by screening method NEGATIVE NEGATIVE Urine oxycodone detection NEGATIVE NEGATIVE Urine propoxyphene detection NEGATIVE NEGATIVE Bacterial urine culture - 03/08/16 00:50 Bacterial urine culture [id number] NRG COLONY COUNT 10,000/ML - 100,000/ML NRG FTX;REPORTABLE PLEASE NOTIFY MICRO(X141)IF DR REQUESTS [facility] FREE TEXT ENTRY 2 FOR THIS ISOLATE TO BE SENT TO A [facility] FREE TEXT ENTRY 3 REFERENCE LAB FOR SENSITIVITY TESTING. NR Bacterial susceptibility panel - 03/08/16 00:50 Gentamicin susceptibility test by minimum inhibitory concentration R NRG Vancomycin susceptibility test by minimum inhibitory concentration 1 NRG Levofloxacin susceptibility test by minimum inhibitory concentration 1 NRG Tetracycline susceptibility test by minimum inhibitory concentration >= NRG Ampicillin susceptibility test by minimum inhibitory concentration <= NRG Nitrofurantoin susceptibility test by minimum inhibitory concentration <= NRG Linezolid susceptibility test by minimum inhibitory concentration 2 NR Bacterial susceptibility panel - 03/08/16 00:50 Oxacillin susceptibility test by minimum inhibitory concentration >= NRG Gentamicin susceptibility test by minimum inhibitory concentration <= NRG Trimethoprim/sulfamethoxazole susceptibility test by minimum inhibitoryconcentration <= NRG Vancomycin susceptibility test by minimum inhibitory concentration 1 NRG Levofloxacin susceptibility test by minimum inhibitory concentration <= NRG Rifampin susceptibility test by minimum inhibitory concentration <= NRG Tetracycline susceptibility test by minimum inhibitory concentration <= NRG Complete blood count (CBC) with automated white blood cell (WBC) differential - 03/08/16 01:20 Blood leukocytes automated count (number/volume) 10.6 10*3/ uL 4.3-11.0 Blood erythrocytes automated count (number/volume) 4.43 10*6 /uL 4.35-5.85 Venous blood hemoglobin measurement (mass/volume) 11.9 g/dL 11.5-16.0 Blood hematocrit (volume fraction) 37 % 35-52 Automated erythrocyte mean corpuscular volume 84 [foz_us] 80-99 Automated erythrocyte mean corpuscular hemoglobin (mass per erythrocyte) 27 pg 25-34 Automated erythrocyte mean corpuscular hemoglobin concentration measurement ( mass/volume) 32 g/dL 32-36 Automated erythrocyte distribution width ratio 14.7 % 10.0-14.5 Automated blood platelet count (count/volume) 330 10*3/uL 130-400 Automated blood platelet mean volume measurement 9.4 [foz_us ] 7.4-10.4 Automated blood neutrophils/100 leukocytes 73 % 42-75 Automated blood lymphocytes/100 leukocytes 20 % 12-44 Blood monocytes/100 leukocytes 7 % 0-12 Automated blood eosinophils/100 leukocytes 0 % 0-10 Automated blood basophils/100 leukocytes 0 % 0-10 Blood neutrophils automated count (number/volume) 7.7 10*3 1.8-7.8 Blood lymphocytes automated count (number/volume) 2.2 10*3 1.0-4.0 Blood monocytes automated count (number/volume) 0.7 10*3 0.0-1.0 Automated eosinophil count 0.0 10*3/uL 0.0-0.3 Automated blood basophil count (count/volume) 0.0 10*3/uL 0.0-0.1 Serum or plasma choriogonadotropin measurement (units/volume) - 03/08/16 01:20 Serum or plasma choriogonadotropin measurement (units/volume) 12 m[iU]/mL <5 Bacteria identification in genital specimen by aerobe culture - 03/08/16 01:35 FREE TEXT EXTERNAL PLUS NORMAL LUKE NRG QUANTITY OF GROWTH Scant Growth NRG Bacteria identification in genital specimen by aerobe culture [id number] NRG Microscopic examination by KELLY preparation - 03/08/16 01:35 Microscopic examination by KELLY preparation TNP NRG Microscopic examination by wet preparation - 03/08/16 01:35 WET PREP RESULTS 03/08/16 0155 BY BD NRG Chlamydia trachomatis DNA detection by probe and signal amplification method - 03/08/16 01:35 Chlamydia trachomatis DNA detection by probe and target amplification method Negative Negative Neisseria gonorrhoeae DNA detection by probe and signal amplification method - 03/08/16 01:35 Gonorrhea amp DNA-urine Negative Negative Complete blood count (CBC) with automated white blood cell (WBC) differential - 08/31/16 00:18 Blood leukocytes automated count (number/volume) 11.2 10*3/ uL 4.3-11.0 Blood erythrocytes automated count (number/volume) 4.31 10*6 /uL 4.35-5.85 Venous blood hemoglobin measurement (mass/volume) 11.4 g/dL 11.5-16.0 Blood hematocrit (volume fraction) 36 % 35-52 Automated erythrocyte mean corpuscular volume 84 [foz_us] 80-99 Automated erythrocyte mean corpuscular hemoglobin (mass per erythrocyte) 27 pg 25-34 Automated erythrocyte mean corpuscular hemoglobin concentration measurement ( mass/volume) 32 g/dL 32-36 Automated erythrocyte distribution width ratio 14.8 % 10.0-14.5 Automated blood platelet count (count/volume) 358 10*3/uL 130-400 Automated blood platelet mean volume measurement 9.5 [foz_us ] 7.4-10.4 Automated blood neutrophils/100 leukocytes 63 % 42-75 Automated blood lymphocytes/100 leukocytes 29 % 12-44 Blood monocytes/100 leukocytes 7 % 0-12 Automated blood eosinophils/100 leukocytes 1 % 0-10 Automated blood basophils/100 leukocytes 0 % 0-10 Blood neutrophils automated count (number/volume) 7.0 10*3 1.8-7.8 Blood lymphocytes automated count (number/volume) 3.3 10*3 1.0-4.0 Blood monocytes automated count (number/volume) 0.8 10*3 0.0-1.0 Automated eosinophil count 0.1 10*3/uL 0.0-0.3 Automated blood basophil count (count/volume) 0.1 10*3/uL 0.0-0.1 Comprehensive metabolic panel - 08/31/16 00:18 Serum or plasma sodium measurement (moles/volume) 141 mmol/ L 135-145 Serum or plasma potassium measurement (moles/volume) 4.0 mmol/L 3.6-5.0 Serum or plasma chloride measurement (moles/volume) 107 mmol /L 98-107 Carbon dioxide 23 mmol/L 21-32 Serum or plasma anion gap determination (moles/volume) 11 mmol/L 5-14 Serum or plasma urea nitrogen measurement (mass/volume) 12 mg/dL 7-18 Serum or plasma creatinine measurement (mass/volume) 0.71 mg /dL 0.60-1.30 Serum or plasma urea nitrogen/creatinine mass ratio 17 NRG Serum or plasma creatinine measurement with calculation of estimated glomerular filtration rate > NRG Serum or plasma glucose measurement (mass/volume) 93 mg/dL 70-105 Serum or plasma calcium measurement (mass/volume) 9.2 mg/dL 8.5-10.1 Serum or plasma total bilirubin measurement (mass/volume) 0.3 mg/dL 0.1-1.0 Serum or plasma alkaline phosphatase measurement (enzymatic activity/volume) 81 U/L 40-136 Serum or plasma aspartate aminotransferase measurement (enzymatic activity/ volume) 19 U/L 5-34 Serum or plasma alanine aminotransferase measurement (enzymatic activity/volume ) 25 U/L 0-55 Serum or plasma protein measurement (mass/volume) 7.4 g/dL 6.4-8.2 Serum or plasma albumin measurement (mass/volume) 3.8 g/dL 3.2-4.5 Lipase - 08/31/16 00:18 Lipase 26 U/L 8-78 Serum or plasma choriogonadotropin ( test) detection - 08/31/16 00:18 Serum or plasma choriogonadotropin ( test) detection NEGATIVE NEGATIVE Complete urinalysis with reflex to culture - 08/31/16 00:21 Urine color determination YELLOW NRG Urine clarity determination CLEAR NRG Urine pH measurement by test strip 6 5- 9 Specific gravity of urine by test strip 1.015 1.016-1.022 Urine protein assay by test strip, semi-quantitative NEGATIVE NEGATIVE Urine glucose detection by automated test strip NEGATIVE NEGATIVE Erythrocytes detection in urine sediment by light microscopy NEGATIVE NEGATIVE Urine ketones detection by automated test strip NEGATIVE NEGATIVE Urine nitrite detection by test strip NEGATIVE NEGATIVE Urine total bilirubin detection by test strip NEGATIVE NEGATIVE Urine urobilinogen measurement by automated test strip (mass/volume) NORMAL NORMAL Urine leukocyte esterase detection by dipstick 3+ NEGATIVE Automated urine sediment erythrocyte count by microscopy (number/high power field) NONE NRG Automated urine sediment leukocyte count by microscopy (number/high power field ) [HPF] NRG Bacteria detection in urine sediment by light microscopy FEW NRG Squamous epithelial cells detection in urine sediment by light microscopy 10-25 NRG Crystals detection in urine sediment by light microscopy NONE NRG Casts detection in urine sediment by light microscopy NONE NRG Mucus detection in urine sediment by light microscopy NEGATIVE NRG Complete urinalysis with reflex to culture YES NRG Bacterial urine culture - 08/31/16 00:21 URINE CULTURE RESULTS 10,000/ML - 100,000/ML NRG Encounters ACCT No. Visit Date/Time Discharge Status Pt. Type Provider Facility Loc./Unit Complaint [id number] 07/10/2014 12:46:00 07/10/2014 23: 59:59 CLS Outpatient WILLY PURVIS PSYD [id number] 03/23/2014 09:53:00 03/23/2014 23: 59:59 CLS Outpatient JOSIAH GARCIA PHD [id number] 01/02/2014 14:00:00 01/02/2014 23: 59:59 CLS Outpatient JOSIAH GARCIA PHD [id number] 11/14/2013 17:01:00 11/14/2013 23: 59:59 CLS Outpatient JOSIAH GARCIA PHD [id number] 08/03/2013 14:34:00 08/03/2013 23: 59:59 CLS Outpatient JOSIAH GARCIA PHD [id number] 06/23/2013 13:15:00 06/23/2013 23: 59:59 CLS Outpatient JOSIAH GARCIA PHD [id number] 02/10/2013 11:50:00 02/10/2013 23: 59:59 CLS Outpatient SUZIE JUSTIN DO [id number] 12/26/2012 12:14:00 12/26/2012 23: 59:59 CLS Outpatient SUZIE JUSTIN DO [id number] 06/06/2012 13:47:00 06/06/2012 23: 59:59 CLS Outpatient SUZIE JUSTIN DO [id number] 05/09/2012 11:18:00 05/09/2012 23: 59:59 CLS Outpatient SUZIE JUSTIN DO [id number] 05/09/2012 11:18:00 05/09/2012 23: 59:59 CLS Outpatient SUZIE JUSTIN DO [id number] 12/14/2011 14:57:00 12/14/2011 23: 59:59 CLS Outpatient [id number] 10/17/2012 14:10:00 Document Registration [id number] 08/03/2012 13:46:00 Document Registration [id number] 08/01/2012 13:47:00 Document Registration [id number] 08/01/2012 13:47:00 Document Registration [id number] 07/13/2012 13:58:00 Document Registration [id number] 05/09/2012 17:06:30 RECURRING
--- OUTSIDE RECORDS SUMMARY | 2016-09-11 13:25 | XMS REPORT ---
Author Author ALYCIA FERGUSON Organization [employer] Address Unknown Phone Unavailable Care Team Providers Care Criminology Professor Name Role Phone ALYCIA FERGUSON CP Unavailable [...]
--- OUTSIDE RECORDS SUMMARY | 2016-09-11 13:25 | XMS REPORT ---
Author Author ALYCIA FERGUSON Organization [employer] Address Unknown Phone Unavailable Care Team Providers Care Foxer Name Role Phone ALYCIA FERGUSON CP Unavailable [...]
--- OUTSIDE RECORDS SUMMARY | 2016-09-11 13:25 | XMS REPORT ---
Author Author NANCI MATT [facility] [employer] Address Unknown Phone Unavailable Care Team Providers Care Dermatologist Name Role Phone NANCI MATT CP Unavailable Allergies, Adverse Reactions, Alerts Substance Reaction Event Type Percocet Info Not Available Drug Allergy Problems Problem Type Condition Code Onset Dates Condition Status Assessment Normal in multigravida Z34.80 Active Problem Borderline hypothyroidism R94.6 Active Problem [...] Instructions Start Date End Date Status Dosage [facility] Gummy [facility] [address]-76 0.4-113.5 MG Orally Once a day September 1 tablet Tylenol ND 0 Oral 1 tab [facility] [address]-32 27-1 MG Orally not defined Fioricet [facility] [address]-19 50-300-40 MG Orally every 4 hrs 2015 2 capsules Procedures Procedure Coding System Code Date FAHEEM VAG, DNA, DIR PROBE CPT-4 95126 2015 SPECIMEN HANDLING CPT-4 96784 2015 [facility] NOBLL 2015 URINALYSIS, AUTO, W/O SCOPE CPT-4 70380 2015 No Charge CPT-4 73536 2015 Office Visit, Est Pt., Level 4 CPT-4 03325 2015 VENIPUNCT, ROUTINE* CPT-4 31304 2015 Vital Signs Date/Time: 2015 Cardiac Monitoring Heart Rate 68 bpm Weight 220.6 lbs Height 62 in Blood Pressure Diastolic 74 mmHg Blood Pressure Systolic 114 mmHg Results No Known Results Summary Purpose [employer] Submission
== END 2016-08-31 03:23 | disposition home or self-care (01) ==
LOC: EDUNIT# 22:41 → ER 22:43
DX: N39.0 Urinary tract infection, site not specified (principal); Z32.02 Encounter for pregnancy test, result negative; Z98.890 Other specified postprocedural states; Z90.49 Acquired absence of other specified parts of digestive tract
CPT/HCPCS: 36415; 74020; 80053; 81000; 83690; 84703; 85025; 87088; 96374

== ENCOUNTER 2016-11-16 18:43 | Emergency (ER) | payer MEDICAID ==
[~2016-11-16] VITALS: Ht 154.9 cm; Wt 90.8 kg
[~2016-11-16 18:43] MED LIST changes: +FERR236T3 PO
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
[2016-11-16] MEDS ORDERED: AMOX-358 PO (19:12)
[2016-11-16] MEDS ORDERED: AUGMENTIN 875 MG TAB (AMOXICILLIN/CLAVULANATE) PO SCH (19:15)
[2016-11-16 19:29] VITALS: BP 144/96
[2016-11-16] MEDS ORDERED: TETANUS,DIPTH,PERTUSS P/F (BOOSTRIX) 0.5 ML VIAL IM ONE (19:30)
== END 2016-11-16 19:29 | disposition home or self-care (01) ==
LOC: EDUNIT# 18:43 → ER 18:47
DX: S80.11XA Contusion of right lower leg, initial encounter (principal); E03.9 Hypothyroidism, unspecified; D64.9 Anemia, unspecified; Z77.22 Contact with and (suspected) exposure to environmental tobacco smoke (acute) (chronic); Z82.49 Family history of ischemic heart disease and other diseases of the circulatory system; Z87.448 Personal history of other diseases of urinary system; Z90.49 Acquired absence of other specified parts of digestive tract; Z87.59 Personal history of other complications of pregnancy, childbirth and the puerperium; Z87.19 Personal history of other diseases of the digestive system; Y04.8XXA Assault by other bodily force, initial encounter
CPT/HCPCS: 84703; 90471; 90715; 99284

== ENCOUNTER 2016-12-03 18:54 | Emergency (ER) | payer MEDICAID ==
[~2016-12-03] VITALS: Ht 162.6 cm; Wt 90.7 kg
[~2016-12-03 18:54] MED LIST changes: +AMOX-358 PO
--- OUTSIDE RECORDS SUMMARY | 2016-12-03 19:02 | XMS REPORT ---
Author Author ALYCIA FERGUSON [facility] Address [address] [place] [address] Care Team Providers Care Associate Sales Name Role Phone ALYCIA FERGUSON Unavailable PROBLEMS Type Condition ICD9-CM Code [id number] Code Onset Dates Condition Status SNOMED Code Problem Borderline personality disorder in adult F60.3 Active 81991288 Problem Single current episode of major depressive disorder, unspecified depression episode severity F32.9 Active 604679633 Problem Anxiety disorder, unspecified F41.9 Active 506306091 Problem Chronic daily headache R51 Active 144595493 Problem Hypothyroidism, unspecified type E03.9 Active 41379207 Problem GERD (gastroesophageal reflux disease) K21.9 Active 300589229 Problem Morbid obesity due to excess calories E66.01 Active 968201878 Problem Migraine without aura and without status migrainosus, not intractable G43.009 Active 268640554 Problem Opioid use disorder, severe, dependence F11.20 Active 44731715 Problem Alcohol use disorder, severe, 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 Active ALLERGIES Substance Reaction Event Type Date Status Percocet Unknown Drug Allergy Mar, Active SOCIAL HISTORY No smoking Hx information available PLAN OF CARE Activity Details Follow Up 4 Weeks Reason:migraine fu VITAL SIGNS Height 62 in 2016-04-16 Weight 220 lbs 2016-04-16 Temperature 98 degrees Fahrenheit 2016-04-16 Heart Rate 91 bpm 2016-04-16 Respiratory Rate 18 2016-04-16 BMI 40.23 kg/m2 2016-04-16 Blood pressure systolic 124 mmHg 2016-04-16 Blood pressure diastolic 74 mmHg 2016-04-16 MEDICATIONS Medication Instructions Dosage Frequency Start Date End Date Duration Status Omeprazole 40 Orally Once a day 1 capsule 24h 30 Active Propranolol HCl CR 60 MG Orally Once a day 1 capsule 24h Mar, 30 day(s) Active DiphenhydrAMINE HCl 50 MG Orally prior to bed as directed 1 month Active [facility] Gummy 0.4-113.5 MG Orally Once a day 1 tablet 24h Sep, Active Tylenol 1 tab Active NuvaRing 0.12-0.015 MG/24HR Vaginal once a month 1 ring Mar, Active Fioricet 50-300-40 MG Orally 2 times a day 1 capsule as needed 12h Active RESULTS Name Result Date Reference Range AMERITOX 2016-04-16 PROCEDURES Procedure Date Ordered Related Diagnosis Body Site No Charge Apr 16, 2016 Office Visit, Est Pt., Level 4 Apr 16, 2016 IMMUNIZATIONS No Known Immunizations
--- OUTSIDE RECORDS SUMMARY | 2016-12-03 19:03 | XMS REPORT ---
Author Author TIM PATTERSON Organization [facility] Address [address] [place] [address] Care Team Providers Care Seal Skinner Name Role Phone TIM PATTERSON Unavailable PROBLEMS Type Condition ICD9-CM Code [id number] Code Onset Dates Condition Status SNOMED Code Problem Borderline personality disorder in adult F60.3 Active 59363188 Problem Single current episode of major depressive disorder, unspecified depression episode severity F32.9 Active 580556583 Problem Anxiety disorder, unspecified F41.9 Active 010195366 Problem Chronic daily headache R51 Active 350641210 Problem Hypothyroidism, unspecified type E03.9 Active 20109985 Problem GERD (gastroesophageal reflux disease) K21.9 Active 353574398 Problem Morbid obesity due to excess calories E66.01 Active 800416537 Problem Migraine without aura and without status migrainosus, not intractable G43.009 Active 728596315 Problem Opioid use disorder, severe, dependence F11.20 Active 02058980 Problem Alcohol use disorder, severe, 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 Active ALLERGIES Substance Reaction Event Type Date Status Percocet Unknown Drug Allergy Mar, Active SOCIAL HISTORY No smoking Hx information available PLAN OF CARE Activity Details Follow Up 1-2 Months with PCP Madl Reason: VITAL SIGNS Height 62 in 2016-04-06 Weight 217.9 lbs 2016-04-06 Temperature 97.0 degrees Fahrenheit 2016-04-06 Heart Rate 80 bpm 2016-04-06 Respiratory Rate 20 2016-04-06 BMI 39.85 kg/m2 2016-04-06 Blood pressure systolic 130 mmHg 2016-04-06 Blood pressure diastolic 78 mmHg 2016-04-06 MEDICATIONS Medication Instructions Dosage Frequency Start Date End Date Duration Status Omeprazole 40 Orally Once a day 1 capsule 24h 30 Active [facility] Gummy 0.4-113.5 MG Orally Once a day 1 tablet 24h Sep, Active Tylenol 1 tab Active Azithromycin 250 MG Orally Once a day 2 tablets on the first day, then 1 tablet daily for 4 days 24h Mar, Mar, 5 day(s) Active DiphenhydrAMINE HCl 50 MG Orally prior to bed as directed Mar, 1 month Active Fioricet 50-300-40 MG Orally 2 times a day 1 capsule as needed 12h 20 Sep, 2015 Active NuvaRing 0.12-0.015 MG/24HR Vaginal once a month 1 ring Mar, Active Sklice 0.5 % Externally Once a day as directed 24h Mar, 1 dose Active RESULTS No Results PROCEDURES Procedure Date Ordered Related Diagnosis Body Site Office Visit, Est Pt., Level 4 Apr 06, 2016 IMMUNIZATIONS No Known Immunizations
--- OUTSIDE RECORDS SUMMARY | 2016-12-03 19:03 | XMS REPORT ---
Author Author SUZIE JUSTIN Organization [facility] Address [address] [place] [address] Care Team Providers Care Environmental Emergencies Planner Name Role Phone SUZIE JUSTIN Unavailable PROBLEMS Type Condition ICD9-CM Code [id number] Code Onset Dates Condition Status SNOMED Code Problem Borderline personality disorder in adult F60.3 Active 84068815 Problem Single current episode of major depressive disorder, unspecified depression episode severity F32.9 Active 185929339 Problem Anxiety disorder, unspecified F41.9 Active 233643741 Problem Chronic daily headache R51 Active 666753582 Problem Hypothyroidism, unspecified type E03.9 Active 34708800 Problem GERD (gastroesophageal reflux disease) K21.9 Active 388058832 Problem Morbid obesity due to excess calories E66.01 Active 094347619 Problem Migraine without aura and without status migrainosus, not intractable G43.009 Active 861149711 Problem Opioid use disorder, severe, dependence F11.20 Active 82258843 Problem Alcohol use disorder, severe, 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
--- OUTSIDE RECORDS SUMMARY | 2016-12-03 19:04 | XMS REPORT ---
Author Author JAYDEN ESCALANTE [facility] Address [address] [place] [address] Care Team Providers Care Perishable Fruit Inspector Name Role Phone JAYDEN ESCALANTE Unavailable PROBLEMS Type Condition ICD9-CM Code [id number] Code Onset Dates Condition Status SNOMED Code Problem Borderline personality disorder in adult F60.3 Active 44551373 Problem Single current episode of major depressive disorder, unspecified depression episode severity F32.9 Active 672830337 Problem Anxiety disorder, unspecified F41.9 Active 029726424 Problem Chronic daily headache R51 Active 437001527 Problem Hypothyroidism, unspecified type E03.9 Active 17458319 Problem GERD (gastroesophageal reflux disease) K21.9 Active 465439659 Problem Migraine without aura and without status migrainosus, not intractable G43.009 Active 913329921 Problem Morbid obesity due to excess calories E66.01 Active 725171155 Problem Alcohol use disorder, severe, 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
[2016-12-03 21:15] LABS: BILIRUBIN,URINE NEGATIVE (NEGATIVE); KETONES,URINE NEGATIVE (NEGATIVE); LEUKOCYTE ESTERASE ,URINE 1+ (NEGATIVE); NITRITE,URINE NEGATIVE (NEGATIVE); PH,URINE 6 (5-9); PROTEIN,URINE NEGATIVE (NEGATIVE); UROBILINOGEN,URINE NORMAL (NORMAL)
[2016-12-03 21:28] LABS: WBC,URINE RARE /HPF
[2016-12-03 21:36] LABS: BASOPHILS % (AUTO) 0 % (0-10); EOSINOPHILS # (AUTO) 0.1 10^3/uL (0.0-0.3); EOSINOPHILS % (AUTO) 1 % (0-10); LYMPHOCYTES # (AUTO) 3.9 X 10^3 (1.0-4.0); LYMPHOCYTES % (AUTO) 39 % (12-44); MEAN CORPUSCULAR HEMOGLOBIN 26 PG (25-34); MEAN CORPUSCULAR HGB CONC 31 G/DL (32-36); MEAN CORPUSCULAR VOLUME 82 FL (80-99); MEAN PLATELET VOLUME 9.8 FL (7.4-10.4); MONOCYTES # (AUTO) 0.7 X 10^3 (0.0-1.0); MONOCYTES % (AUTO) 7 % (0-12); NEUTROPHILS # (AUTO) 5.3 X 10^3 (1.8-7.8); NEUTROPHILS % (AUTO) 53 % (42-75); PLATELET COUNT 375 10^3/uL (130-400); RED BLOOD COUNT 4.14 10^6/uL (4.35-5.85); RED CELL DISTRIBUTION WIDTH 14.4 % (10.0-14.5)
[2016-12-03 22:00] LABS: ALANINE AMINOTRANSFERASE 12 U/L (0-55); ALBUMIN 3.9 GM/DL (3.2-4.5); ANION GAP 11 MMOL/L (5-14); ASPARTATE AMINO TRANSFERASE 14 U/L (5-34); BILIRUBIN,TOTAL 0.3 MG/DL (0.1-1.0); BLOOD UREA NITROGEN 10 MG/DL (7-18); BUN/CREATININE RATIO 13; CALCIUM 9.1 MG/DL (8.5-10.1); CARBON DIOXIDE 23 MMOL/L (21-32); CHLORIDE 107 MMOL/L (98-107); CREATININE SERUM 0.79 MG/DL (0.60-1.30); GFR ESTIMATED > 60; GLUCOSE 94 MG/DL (70-105); POTASSIUM 3.6 MMOL/L (3.6-5.0); SODIUM 141 MMOL/L (135-145); TOTAL PROTEIN 7.5 GM/DL (6.4-8.2)
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
[2016-12-03 22:46] VITALS: BP 126/96
== END 2016-12-03 22:46 | disposition home or self-care (01) ==
LOC: EDUNIT# 18:54 → ER 18:56
DX: N92.5 Other specified irregular menstruation (principal); I10 Essential (primary) hypertension; E03.9 Hypothyroidism, unspecified; Z82.49 Family history of ischemic heart disease and other diseases of the circulatory system; Z87.448 Personal history of other diseases of urinary system; Z87.59 Personal history of other complications of pregnancy, childbirth and the puerperium; Z77.22 Contact with and (suspected) exposure to environmental tobacco smoke (acute) (chronic); Z90.49 Acquired absence of other specified parts of digestive tract; Z87.19 Personal history of other diseases of the digestive system
CPT/HCPCS: 36415; 80053; 81000; 84703; 85025; 99283

== ENCOUNTER 2017-01-15 23:55 | Emergency (ER) | payer MEDICAID ==
[~2017-01-15] VITALS: Ht 162.6 cm; Wt 90.8 kg
[2017-01-16 00:34] LABS: BILIRUBIN,URINE NEGATIVE (NEGATIVE); KETONES,URINE NEGATIVE (NEGATIVE); LEUKOCYTE ESTERASE ,URINE 3+ (NEGATIVE); NITRITE,URINE NEGATIVE (NEGATIVE); PH,URINE 5 (5-9); PROTEIN,URINE 1+ (NEGATIVE); UROBILINOGEN,URINE NORMAL (NORMAL)
[2017-01-16 00:40] LABS: BASOPHILS % (AUTO) 0 % (0-10); EOSINOPHILS # (AUTO) 0.2 10^3/uL (0.0-0.3); EOSINOPHILS % (AUTO) 2 % (0-10); LYMPHOCYTES # (AUTO) 3.4 X 10^3 (1.0-4.0); LYMPHOCYTES % (AUTO) 37 % (12-44); MEAN CORPUSCULAR HEMOGLOBIN 25 PG (25-34); MEAN CORPUSCULAR HGB CONC 31 G/DL (32-36); MEAN CORPUSCULAR VOLUME 81 FL (80-99); MEAN PLATELET VOLUME 9.5 FL (7.4-10.4); MONOCYTES # (AUTO) 0.6 X 10^3 (0.0-1.0); MONOCYTES % (AUTO) 6 % (0-12); NEUTROPHILS # (AUTO) 5.2 X 10^3 (1.8-7.8); NEUTROPHILS % (AUTO) 56 % (42-75); PLATELET COUNT 365 10^3/uL (130-400); RED BLOOD COUNT 4.18 10^6/uL (4.35-5.85); RED CELL DISTRIBUTION WIDTH 14.9 % (10.0-14.5); WHITE BLOOD COUNT 9.4 10^3/uL (4.3-11.0)
[2017-01-16 00:46] LABS: WBC,URINE 0-2 /HPF
[2017-01-16 01:02] LABS: ALANINE AMINOTRANSFERASE 13 U/L (0-55); ALBUMIN 3.8 GM/DL (3.2-4.5); ALCOHOL < 10 MG/DL (<10); AMYLASE 74 U/L (25-125); ANION GAP 8 MMOL/L (5-14); ASPARTATE AMINO TRANSFERASE 16 U/L (5-34); BILIRUBIN,TOTAL 0.2 MG/DL (0.1-1.0); BLOOD UREA NITROGEN 9 MG/DL (7-18); BUN/CREATININE RATIO 13; CALCIUM 9.1 MG/DL (8.5-10.1); CARBON DIOXIDE 25 MMOL/L (21-32); CHLORIDE 106 MMOL/L (98-107); CREATININE SERUM 0.68 MG/DL (0.60-1.30); GFR ESTIMATED > 60; GLUCOSE 97 MG/DL (70-105); LIPASE 40 U/L (8-78); POTASSIUM 3.8 MMOL/L (3.6-5.0); SODIUM 139 MMOL/L (135-145); TOTAL PROTEIN 7.5 GM/DL (6.4-8.2)
[2017-01-16] MEDS ORDERED: NITR-65 PO (01:15)
[2017-01-16] MEDS ORDERED: HYOSCYAMINE 0.125 MG (LEVSIN) TAB PO ONE (01:15)
[2017-01-16] MEDS ORDERED: ONDA4TAB8 PO (01:15)
[2017-01-16] MEDS ORDERED: HYOS0.1283 SL (01:15)
[2017-01-16] MEDS ORDERED: ONDANSETRON 4 MG/2 ML (SDV) Z0FRAN IVP ONE (01:15)
--- NOTE | 2017-01-16 01:16 | ED GI ---
General Chief Complaint: Abdominal/GI Problems Stated Complaint: VOMITING,SORE THROAT,BLOOD IN STOOL Nursing Triage Note: c/o emesis with blood in stool. reports hasn't had her menstrual cycle in 4 months Sepsis Screen: No Definite Risk Allergies and Home Medications Allergies Coded Allergies: oxycodone (Verified Adverse Reaction, Unknown, hyperactivity, 09/22/15) Home Medications Hyoscyamine Sulfate 0.125 Mg Tab.subl, 1-2 TAB SL Q4H, #15 Prescribed by: TOÑA VILLARREAL on 01/16/17114 Nitrofurantoin Monohyd/M-Cryst 100 Mg Capsule, 100 MG PO BID, #20 Prescribed by: TOÑA VILLARREAL on 01/16/17114 Ondansetron 4 Mg Tab.rapdis, 4 MG PO Q4H, #10 Prescribed by: TOÑA VILLARREAL on 01/16/17114 Past Sujhizq-Pxmntc-Moenkg Hx Patient Social History Alcohol Use: Denies Use Recreational Drug Use: No Smoking Status: Current Someday Smoker Type Used: Cigarettes 2nd Hand Smoke Exposure: Yes Recent Foreign Travel: No Contact w/Someone Who Travel: No Recent Infectious Disease Expo: No Recent Hopitalizations: No Physical Abuse: No Sexual Abuse: No Immunizations Up To Date Tetanus Booster (TDap): Unknown PED Vaccines UTD: No Date of Influenza Vaccine: Dec 28, 2011 Seasonal Allergies Seasonal Allergies: No Surgeries History of Surgeries: Yes (PILONIDAL CYST; UMBILICAL HERNIA REPAIR; D&C X 2) Surgeries: Abdominal, Appendectomy, Gallbladder Respiratory History of Respiratory Disorde: No Cardiovascular History of Cardiac Disorders: Yes Cardiac Disorders: Hypertension Neurological History of Neurological Disord: No Reproductive System Hx Reproductive Disorders: Yes (MISCARRIAGES) Sexually Transmitted Disease: No HIV/AIDS: No Female Reproductive Disorders: Denies Genitourinary History of Genitourinary Disor: No Genitourinary Disorders: Bladder Infection Gastrointestinal History of Gastrointestinal Di: Yes (UMBILICAL HERNIA REPAIRED) Musculoskeletal History of Musculoskeletal Dis: No Endocrine History of Endocrine Disorders: Yes Endocrine Disorders: Hypothyroidsim HEENT History of HEENT Disorders: No Cancer History of Cancer: No Psychosocial History of Psychiatric Problem: No Suicide Risk Score: 0 Integumentary History of Skin or Integumenta: No Blood Transfusions History of Blood Disorders: Yes (ANEMIA) Adverse Reaction to a Blood Tr: No Family Medical History Family Medial History: Alcoholism Cancer Congenital heart disease Family history: Allergy No Family History of: Abdominal aortic aneurysm Stokes's disease Aphasia Cancer of colon Cataract Chest pain Congestive heart failure Cystic fibrosis Dementia Dysphagia Family history: Alzheimer's disease Family history: Arthritis Family history: Asthma Family history: Breast disease Family history: Cardiovascular disease Family history: Coronary thrombosis Family history: Diabetes mellitus Family history: Gastrointestinal disease Family history: Glaucoma Family history: Hypertension Family history: Osteoporosis Family history: Thyroid disorder Headache Hearing loss Heart disease Hereditary disease History of - anemia History of - disorder History of - respiratory disease History of drug abuse Human immunodeficiency virus (HIV) seropositivity Hypercholesterolemia Infertile Kidney disease Malignant neoplasm of lung Myocardial infarction Parkinson's disease Prostate cancer Psychotic disorder Seizure disorder Stroke Tuberculosis Visual impairment Physical Exam Vital Signs VS - Last 72 Hours, by Label 01/16/17 00:01 Pulse 85 Resp 18 B/P (MAP) 158/92 Pulse Ox 99 O2 Delivery Room Air Capillary Refill : Less Than 3 Seconds Progress/Results/Core Measures Results/Orders Lab Results Laboratory Tests Test 01/16/17 00:25 01/16/17 00:30 Range/Units Urine Color YELLOW Urine Clarity SLIGHTLY CLOUDY Urine pH 5 5-9 Urine Specific [place] 1.025 H 1.016-1.022 Urine Protein 1+ H NEGATIVE Urine Glucose (UA) NEGATIVE NEGATIVE Urine Ketones NEGATIVE NEGATIVE Urine Nitrite NEGATIVE NEGATIVE Urine Bilirubin NEGATIVE NEGATIVE Urine Urobilinogen NORMAL NORMAL MG/DL Urine Leukocyte Esterase 3+ H NEGATIVE Urine RBC (Auto) 1+ H NEGATIVE Urine RBC 0-2 /HPF Urine WBC 0-2 /HPF Urine Squamous Epithelial Cells 10-25 H /HPF Urine Crystals NONE /LPF Urine Bacteria TRACE /HPF Urine Casts NONE /LPF Urine Mucus LARGE H /LPF Urine Culture Indicated NO Urine Opiates Screen NEGATIVE NEGATIVE Urine Oxycodone Screen NEGATIVE NEGATIVE Urine Methadone Screen NEGATIVE NEGATIVE Urine Propoxyphene Screen NEGATIVE NEGATIVE Urine Barbiturates Screen NEGATIVE NEGATIVE Ur Tricyclic Antidepressants Screen NEGATIVE NEGATIVE Urine Phencyclidine Screen NEGATIVE NEGATIVE Urine Amphetamines Screen NEGATIVE NEGATIVE Urine Methamphetamines Screen NEGATIVE NEGATIVE Urine Benzodiazepines Screen NEGATIVE NEGATIVE Urine Cocaine Screen NEGATIVE NEGATIVE Urine Cannabinoids Screen NEGATIVE NEGATIVE White Blood Count 9.4 4.3-11.0 10^3/uL Red Blood Count 4.18 L 4.35-5.85 10^6/uL Hemoglobin 10.5 L 11.5-16.0 G/DL Hematocrit 34 L 35-52 % Mean Corpuscular Volume 81 80-99 FL Mean Corpuscular Hemoglobin 25 25-34 PG Mean Corpuscular Hemoglobin Concent 31 L 32-36 G/DL Red Cell Distribution Width 14.9 H 10.0-14.5 % Platelet Count 365 130-400 10^3/uL Mean Platelet Volume 9.5 7.4-10.4 FL Neutrophils (%) (Auto) 56 42-75 % Lymphocytes (%) (Auto) 37 12-44 % Monocytes (%) (Auto) 6 0-12 % Eosinophils (%) (Auto) 2 0-10 % Basophils (%) (Auto) 0 0-10 % Neutrophils # (Auto) 5.2 1.8-7.8 X 10^3 Lymphocytes # (Auto) 3.4 1.0-4.0 X 10^3 Monocytes # (Auto) 0.6 0.0-1.0 X 10^3 Eosinophils # (Auto) 0.2 0.0-0.3 10^3/uL Basophils # (Auto) 0.0 0.0-0.1 10^3/uL Prothrombin Time 13.0 12.2-14.7 SEC INR Comment 1.0 0.8-1.4 Activated Partial Thromboplast Time 28 24-35 SEC Sodium Level 139 135-145 MMOL/L Potassium Level 3.8 3.6-5.0 MMOL/L Chloride Level 106 98-107 MMOL/L Carbon Dioxide Level 25 21-32 MMOL/L Anion Gap 8 5-14 MMOL/L Blood Urea Nitrogen 9 7-18 MG/DL Creatinine 0.68 0.60-1.30 MG/DL Estimat Glomerular Filtration Rate > 60 BUN/Creatinine Ratio 13 Glucose Level 97 70-105 MG/DL Calcium Level 9.1 8.5-10.1 MG/DL Total Bilirubin 0.2 0.1-1.0 MG/DL Aspartate Amino Transf (AST/SGOT) 16 5-34 U/L Alanine Aminotransferase (ALT/SGPT) 13 0-55 U/L Alkaline Phosphatase 80 40-136 U/L Total Protein 7.5 6.4-8.2 GM/DL Albumin 3.8 3.2-4.5 GM/DL Amylase Level 74 25-125 U/L Lipase 40 8-78 U/L Serum Alcohol < 10 <10 MG/DL My Orders Orders - TOÑA VILLARREAL DO Saline Lock/Iv-Start (01/16/17 00:10) Urine Bedside (01/16/17 00:10) Alcohol (01/16/17 00:10) Amylase (01/16/17 00:10) Cbc With Automated Diff (01/16/17 00:10) Comprehensive Metabolic Panel (01/16/17 00:10) Drug Screen Stat (Urine) (01/16/17 00:10) Lipase (01/16/17 00:10) Protime With Inr (01/16/17 00:10) Partial Thromboplastin Time (01/16/17 00:10) Ua Culture If Indicated (01/16/17 00:10) Ondansetron Injection (Zofran Injectio (01/16/17 01:15) Hyoscyamine Sl Tablet (Levsin Sl Tablet) (01/16/17 01:15) Vital Signs/I&O Vital Sign - Last 12Hours 01/16/17 00:01 Pulse 85 Resp 18 B/P (MAP) 158/92 Pulse Ox 99 O2 Delivery Room Air Blood Pressure Mean: 114 Point of Care Testing Urine -Bedside: Negative Departure Impression Impression: Primary Impression: Gastroenteritis Additional Impressions: UTI (urinary tract infection) Amenorrhea Disposition: 01 HOME, SELF-CARE Condition: Improved Departure-Patient Inst. Referrals: [facility] (PCP/Family) Primary Care Physician Patient Instructions: Absent or Irregular Periods, [id number], Urinary Tract Infection, Adult (DC) Add. Discharge Instructions: CLEAR LIQUIDS--WATER, BROTH, JELLO, GATORADE TOMORROW IF YOU ARE BETTER, ADD BRATS DIET TO CLEAR LIQUIDS--BANANAS, RICE, APPLESAUCE, TOAST, SALTINES FOLLOW UP WITH [facility] IN 1-2 DAYS IF NO BETTER FOLLOW UP WITH [facility] IN 1-2 WEEKS FOR FOLLOW UP ON MENSTRUAL ISSUES All discharge instructions reviewed with patient and/or family. Voiced understanding. Scripts Ondansetron (Zofran Odt) 4 Mg Tab.rapdis 4 MG PO Q4H for Nausea/Vomiting, #10 TAB Prov: TOÑA VILLARREAL DO 01/16/17 Hyoscyamine Sulfate (Levsin-Sl) 0.125 Mg Tab.subl 1-2 TAB SL Q4H for Abdominal Pain, #15 TAB Prov: TOÑA VILLARREAL DO 01/16/17 Nitrofurantoin Monohyd/M-Cryst (Macrobid 100 mg Capsule) 100 Mg Capsule 100 MG PO BID, #20 CAP Prov: TOÑA VILLARREAL DO 01/16/17 Work/School Note: Work Release Form Date Seen in the Emergency Department: Jan 16, 2017 TOÑA VILLARREAL DO Jan 16, 2017 01:16
[2017-01-16 01:35] VITALS: BP 158/92
== END 2017-01-16 01:35 | disposition home or self-care (01) ==
LOC: EDUNIT# 23:55 → ER 23:58
DX: K52.9 Noninfective gastroenteritis and colitis, unspecified (principal); N39.0 Urinary tract infection, site not specified; N91.2 Amenorrhea, unspecified; E03.9 Hypothyroidism, unspecified; I10 Essential (primary) hypertension; F17.210 Nicotine dependence, cigarettes, uncomplicated; Z87.448 Personal history of other diseases of urinary system; Z90.49 Acquired absence of other specified parts of digestive tract; Z87.19 Personal history of other diseases of the digestive system
CPT/HCPCS: 36415; 80053; 80306; 80320; 81000; 82150; 83690; 84703; 85025; 85610; 85730; 96374

== ENCOUNTER 2017-03-18 21:00 | Emergency (ER) | payer SELFPAY ==
[~2017-03-18] VITALS: Ht 154.9 cm; Wt 95.3 kg
[~2017-03-18 21:00] MED LIST changes: +HYOS0.1283 SL; +NITR-65 PO; +ONDA4TAB8 PO
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
--- NOTE | 2017-03-18 21:42 | Diagnostic Imaging Report ---
PROCEDURE: CT head, face, and cervical spine without contrast. TECHNIQUE: Multiple contiguous axial images were obtained through the head, neck, and facial bones without the use of intravenous contrast. Sagittal and coronal reformations through the cervical spine and facial bones were also performed. INDICATION: Pain, trauma. FINDINGS: CT head: There is no hemorrhage, hydrocephalus, edema, mass, mass effect or elevated pressures. No calvarial fracture deformity. No pneumocephalus. CT cervical spine: Body heights are maintained. No fracture or dislocation. No paravertebral hemorrhage. Skull base appears intact. There is no mastoid effusion. CT facial bones: Nasal bones and nasal septum are intact. There is mild membrane thickening in the floors of the maxillary sinuses. No paranasal sinus air-fluid level. The mandible is intact. Zygomatic arches and bony orbits are intact. Anterior and posterior lewis of the frontal sinus are intact. No facial fracture or focal soft tissue irregularities are apparent. IMPRESSION: 1. CT head: Negative. 2. CT cervical spine: Negative. 3. CT facial bones: Mild paranasal sinus membrane thickening without fracture or hemosinus. Dictated by: Dictated on workstation # [id number]
[2017-03-18 21:51] VITALS: BP 123/87
== END 2017-03-18 21:51 | disposition home or self-care (01) ==
LOC: EDUNIT# 21:00 → ER 21:03
DX: S00.83XA Contusion of other part of head, initial encounter (principal); E03.9 Hypothyroidism, unspecified; F17.210 Nicotine dependence, cigarettes, uncomplicated; Z90.49 Acquired absence of other specified parts of digestive tract; Z87.19 Personal history of other diseases of the digestive system; Z82.49 Family history of ischemic heart disease and other diseases of the circulatory system; Z87.59 Personal history of other complications of pregnancy, childbirth and the puerperium; Z87.448 Personal history of other diseases of urinary system; V48.6XXA Car passenger injured in noncollision transport accident in traffic accident, initial encounter
CPT/HCPCS: 70450; 70486; 72125; 73610; 84703; 99282

== ENCOUNTER 2019-09-18 23:06 | Emergency (ER) | payer SELFPAY ==
[~2019-09-18] VITALS: Ht 155 cm; Wt 117.0 kg
[~2019-09-18 23:06] MED LIST changes: +HYDR-4226 PO; -HYDR-757 PO; +OMEP40CA27; -OMEP40CA36
[2019-09-19] MEDS ORDERED: TETANUS,DIPTH,PERTUSS P/F (BOOSTRIX) 0.5 ML VIAL IM ONE (01:00)
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
[2019-09-19] MEDS ORDERED: NAPR-1071 PO (01:51)
[2019-09-19] MEDS ORDERED: NAPR500T8 PO ×2 (01:51→02:09)
[2019-09-19] MEDS ORDERED: MUPI22OI2 TP ×2 (01:51→02:09)
[2019-09-19] MEDS ORDERED: RX-NAPROXEN (NAPROSYN) 250 MG TAB PPK#4 PO STA (02:08)
[2019-09-19 02:15] VITALS: BP 128/78
--- NOTE | 2019-09-19 06:21 | Diagnostic Imaging Report ---
CLINICAL INDICATION: Patient was running down concrete steps and fell down approximately 5 steps. Patient has abrasions to the left leg and complains of leg pain. EXAMS: 1: X-ray of the left tibia and fibula, 2 views. 2: X-ray of the left ankle, 3 views. 3: X-ray of the left foot, 3 views. COMPARISON: None. FINDINGS: X-ray of the left tibia and fibula, left ankle, and left foot shows no acute fracture or dislocation. There is soft tissue swelling adjacent to the ankle. Visualized portions of the left knee is unremarkable. Ankle mortise and syndesmotic joints unremarkable. There is small calcaneal spurs at the plantar and Achilles attachment. The midfoot and forefoot bony structures are unremarkable. IMPRESSION: X-ray of the left tibia and fibula, left ankle, and left foot shows no acute fracture or dislocation. There is mild swelling adjacent to the left ankle. Dictated by: Dictated on workstation # [id number]
--- NOTE | 2019-09-19 06:23 | Diagnostic Imaging Report ---
CLINICAL INDICATION: Patient was running down concrete steps and fell down approximately 5 steps. Patient has abrasions to left leg and complains of leg pain. EXAMS: 1: X-ray of the right tibia and fibula, 4 views. 2: X-ray of the right ankle, 3 views. 3: X-ray of the right foot, 3 views. COMPARISON: X-ray of the right foot dated 07/28/2010. FINDINGS: X-ray of the right tibia and fibula, right ankle, and right foot shows no acute fracture or dislocation. There is no significant soft tissue abnormality. There are calcaneal spurs involving the plantar and Achilles attachment region which has progressed in the interim. The ankle mortise and syndesmotic joints unremarkable. Visualized portion left knee is unremarkable. The mid foot and forefoot regions are unremarkable. IMPRESSION: 1: X-rays of the right tibia and fibula, right ankle, right foot shows no acute fracture or dislocation. 2: There is interval progression of degenerative calcaneal spurs. Dictated by: Dictated on workstation # [id number]
== END 2019-09-19 02:15 | disposition home or self-care (01) ==
LOC: EDUNIT# 23:06 → ER 23:08
DX: S80.12XA Contusion of left lower leg, initial encounter (principal); S80.11XA Contusion of right lower leg, initial encounter; G43.909 Migraine, unspecified, not intractable, without status migrainosus; E66.9 Obesity, unspecified; Z68.42 Body mass index [BMI] 45.0-49.9, adult; F17.210 Nicotine dependence, cigarettes, uncomplicated; Z88.5 Allergy status to narcotic agent; Z82.49 Family history of ischemic heart disease and other diseases of the circulatory system; W10.9XXA Fall (on) (from) unspecified stairs and steps, initial encounter; Y92.019 Unspecified place in single-family (private) house as the place of occurrence of the external cause
CPT/HCPCS: 73590; 73610; 73630; 84703; 90471; 90715

== ENCOUNTER → 2019-11-13 | Outpatient (CLI) | payer MEDICAID ==
[~2019-11-13] MED LIST changes: +MUPI22OI2 TP; +NAPR-1071 PO; +NAPR500T8 PO
--- NOTE | 2019-11-13 14:14 | Diagnostic Imaging Report ---
INDICATION: dating. FINDINGS: There is an intrauterine gestational sac containing a pole. [place]-rump length measurement is 3.4 mm consistent with approximately 6 weeks 0 days gestation. heart motion was not detected, which could be owing to very early gestation. No perigestational sac hemorrhage is detected. Adnexa are unremarkable. No adnexal mass or free fluid is seen. IMPRESSION: Approximately 6 weeks 0 day intrauterine . No definite heart motion was detected; however, this could be owing to very early gestation. Follow-up ultrasound and/or correlation with serial beta-hCG levels could be performed to confirm viability. EDC based on today's ultrasound is 07/08/2020. Dictated by: Dictated on workstation # [id number]
== END ==
LOC: RAD 12:09
PROVIDERS: ATTEND Family Medicine
DX: Z34.91 Encounter for supervision of normal pregnancy, unspecified, first trimester (principal); Z3A.01 Less than 8 weeks gestation of pregnancy
CPT/HCPCS: 76801; 76817

== ENCOUNTER 2020-06-28 23:36 | Outpatient (CLI) | payer MEDICAID ==
[~2020-06-28] VITALS: Ht 157.5 cm; Wt 118.5 kg
[2020-06-28 23:56] VITALS: BP 150/88
[2020-06-29 00:01] LABS: BILIRUBIN,URINE NEGATIVE (NEGATIVE); CLARITY,URINE SL CLOUDY; COLOR,URINE YELLOW; GLUCOSE, URINE (UA) NEGATIVE (NEGATIVE); KETONES,URINE NEGATIVE (NEGATIVE); LEUKOCYTE ESTERASE ,URINE TRACE (NEGATIVE); NITRITE,URINE NEGATIVE (NEGATIVE); PROTEIN,URINE NEGATIVE (NEGATIVE)
[2020-06-29 00:04] VITALS: BP 150/88
[2020-06-29 00:05] VITALS: BP 150/88
[2020-06-29 00:10] LABS: BACTERIA,URINE FEW /HPF; RBC,URINE 0-2 /HPF; WBC,URINE 0-2 /HPF
[2020-06-29 02:32] VITALS: BP 138/81
--- NOTE | 2020-07-01 07:50 | Physician Query-Final Dx ---
RAYMUNDO MCDOWELL 07/01/20 0750: Clinic Account Progress/Dx Physician Query: Please give diagnosis Please include # weeks gestation Date of Service Jun 28, 2020 at 23:36 SUZIE JUSTIN DO 07/01/20 1512: Clinic Account Progress/Dx DIAGNOSIS: Diagnosis 38wk6d GA Contractions, not in active labor RAYMUNDO MCDOWELL Jul 01, 2020 07:50 SUZIE JUSTIN DO Jul 01, 2020 15:12
== END 2020-06-29 02:23 | disposition home or self-care (01) ==
LOC: WSo 23:36 → LDRP 23:42 → WSo 06-29 02:23
PROVIDERS: ATTEND Family Medicine
DX: Z34.93 Encounter for supervision of normal pregnancy, unspecified, third trimester (principal); Z3A.38 38 weeks gestation of pregnancy
CPT/HCPCS: 81000; 87088; G0463; 99214

== ENCOUNTER 2020-07-02 06:00 | Inpatient (IN) | payer MEDICAID ==
[2020-07-02] VITALS (64 sets, daily range): BP systolic 109–151; BP diastolic 54–97
[~2020-07-02] VITALS: Ht 157.5 cm; Wt 118.0 kg
--- NOTE | 2020-07-02 06:25 | History & Physical-OB ---
OB - Chief Complaint & HPI Date/Time Date of Admission: Date of Admission: Jul 02, 2020 at 06:15 Date seen by a Provider: Jul 02, 2020 Time Seen by a Provider: 06:30 Chief Complaint/History OB-Reason for Admission/Chief: Induction of Labor Hx : 9 Hx Para: 4 Expected Date of Delivery: Jul 06, 2020 Gestational Age in Weeks: 39 Gestational Age in Days: 3 Admission Nurse Assessment Rev: Yes History of Labs GBS negative at 36 weeks Allergies and Home Medications Allergies Coded Allergies: oxycodone (Verified Adverse Reaction, Unknown, hyperactivity, 09/22/15) Home Medications No Active Prescriptions or Reported Meds Patient Home Medication List Home Medication List Reviewed: Yes OB - History Hx of Present Care: Yes Ultrasounds: Normal mid trimester US Obstetrical Complications: None Medical Complications: None Obstetrical History Hx Termination: No Hx Multiple Gestation: No Hx Stillbirth: No Hx Complication: No Hx Induced Hypertens: No Hx Maternal Gestational Diabet: No Delivery History Hx Dystocia: No Hx Large For Gestational Age I: No Hx Small for Gestational Age I: No Hx Section: No Hx Vaginal Delivery Post C-Sec: No Hx Blood Disorders: Yes (ANEMIA) Adverse Rxn to Tranfusion: No Patient Past Medical History no chronic medical problems Social History/Family History 2nd Hand Smoke Exposure: Yes Immunizations Hepatitis A: No Hepatitis B: No Tetanus Booster (TDap): Unknown Date of Influenza Vaccine: Dec 28, 2011 OB - Admission Exam Physical Exam HEENT: Moist Membranes Heart: Rhythm Normal Lungs: Clear Abdomen: Gravid Cervical Dilatation: 2cm Effacement: 50% Station: -3 Membranes: Intact Heart Rate: 140's Accelerations: Accelerations Present Decelerations: No Decelerations Short Term Variability: Present Halfway Variability: Average (6-25) Contractions on Admission: >10 Minutes Apart Intensity: Mild Skinner Scoring Tool (Modified) Dilation (cm): 1-2cm (1) Effacement (%): 31-51% (1) Descent/Station: -3 (0) Cervix Consistency: Medium(1) Cervix Position: Middle/Mid-Position (1) Add 1 point for: Each previous vaginal delivery (1) Skinner Score: 8 OB - Assessment/Plan/Diagnosis Assessment Assessment: induction of labor (at 39w3d gestation) Admission Dx 1. IUP at term 39w3d Admission Status: Inpatient Order (span 2 midnights) Reason for Inpatient Admission: L&D Plan Plan: Induction Induction Method: AROM Other Plan -pitocin as needed NANCI MATT MD Jul 02, 2020 06:25
[2020-07-02] MEDS ORDERED: LACTATED RINGERS 1,000 ML IV ONE ×2 (07:15→09:15)
[2020-07-02] MEDS: D5 LR IV SOLUTION 1,000 ML IV SCH ×2 (07:24→14:27)
[2020-07-02] MEDS ORDERED: OXYTOCIN PRE-MIX DRIP 500 ML IV SCH (08:15)
[2020-07-02 08:33] LABS: BASOPHILS % (AUTO) 0 % (0-10); EOSINOPHILS # (AUTO) 0.1 10^3/uL (0.0-0.3); EOSINOPHILS % (AUTO) 1 % (0-10); HEMATOCRIT 32 % (35-52); LYMPHOCYTES # (AUTO) 2.7 10^3/uL (1.0-4.0); LYMPHOCYTES % (AUTO) 24 % (12-44); MEAN CORPUSCULAR HEMOGLOBIN 21 pg (25-34); MEAN CORPUSCULAR HGB CONC 28 g/dL (32-36); MEAN CORPUSCULAR VOLUME 76 fL (80-99); MEAN PLATELET VOLUME 10.1 fL (9.0-12.2); MONOCYTES # (AUTO) 0.6 10^3/uL (0.0-1.0); MONOCYTES % (AUTO) 5 % (0-12); NEUTROPHILS # (AUTO) 7.7 10^3/uL (1.8-7.8); NEUTROPHILS % (AUTO) 69 % (42-75); PLATELET COUNT 288 10^3/uL (130-400); WHITE BLOOD COUNT 11.2 10^3/uL (4.3-11.0)
[2020-07-02] MEDS ORDERED: fentaNYL 2 mcg/ml BUPIVA 0.125 100 ML ONE (08:35)
[2020-07-02] MEDS ORDERED: fentaNYL INJ 100 MCG/2 ML AMP ONE (09:01)
[2020-07-02] MEDS ORDERED: BUPIVACAINE 0.25% 30 ML (SENSORCAINE) VIAL ONE (09:01)
[2020-07-02] MEDS ORDERED: ONDANSETRON 4 MG/2 ML (SDV) Z0FRAN IV PRN (09:15)
[2020-07-02] MEDS ORDERED: diphenhydrAMINE 50 MG/ML INJ (BENADRYL) IV PRN (09:15)
[2020-07-02] MEDS ORDERED: NALOXONE 0.4 MG/ML 1 ML (NARCAN) VIAL IV PRN (09:15)
[2020-07-02] MEDS ORDERED: CATHETER FLUSH 10 ML SYR IV PRN (09:15)
[2020-07-02] MEDS: fentaNYL 2 mcg/ml BUPIVA 0.125 100 ML IV SCH ×2 (10:07→18:06)
[2020-07-02] MEDS ORDERED: CATHETER FLUSH 10 ML SYR IV SCH ×2 (14:00→22:00)
[2020-07-02] MEDS ORDERED: MEPIVACAINE (CARBOCAINE) 2% 50 ML VIAL ONE (19:06)
--- NOTE | 2020-07-02 20:03 | OB Labor & Delivery Record ---
L&D History Date of Service Date of Service: Jul 02, 2020 History Expected Date of Delivery: Jul 06, 2020 Gestational Age in Weeks: 39 Hx : 9 Hx Para: 5 Complications Events: Routine care Operative Indications (Cesarea: N/A-Vaginal Delivery Intrapartal Events: None L&D Stage1 Stage One Onset of Labor - Date: Jul 02, 2020 Onset of Labor - Time: 06:41 Monitors and Tracing Monitor Mode: Internal Heart Rate: 135 Monitor Accelerations: Uniform Monitor Decelerations: Variable Station: -1 Cage Maker Variability: Average (6-10) Short Term Variability: Present Presentation: Vertex Vital Signs VS - Last 72 Hours, by Label 07/02/20 07/02/20 07/02/20 07/02/20 07:00 07:35 08:35 09:00 Temp 36.6 Pulse 71 70 69 71 Resp 18 18 18 18 B/P (MAP) 148/79 (102) 135/80 (98) Pulse Ox 100 99 O2 Delivery Room Air Room Air Room Air Room Air 07/02/20 07/02/20 07/02/20 07/02/20 09:15 09:30 09:45 10:00 Pulse 92 77 83 85 Resp 18 18 18 18 B/P (MAP) 137/87 (104) 143/85 (104) 143/86 (105) 133/84 (100) Pulse Ox 99 96 99 98 O2 Delivery Room Air Room Air Room Air Room Air 07/02/20 07/02/20 07/02/20 07/02/20 10:07 10:10 10:13 10:16 Pulse 81 81 76 70 Resp 18 18 18 18 B/P (MAP) 129/68 (88) 124/64 (84) 132/68 (89) 121/62 (81) Pulse Ox 98 98 99 99 O2 Delivery Room Air Room Air Room Air Room Air 07/02/20 07/02/20 07/02/20 07/02/20 10:19 10:22 10:25 10:28 Pulse 72 76 74 82 Resp 18 18 18 18 B/P (MAP) 122/66 (84) 121/69 (86) 123/70 (87) 132/77 (95) Pulse Ox 98 98 98 99 O2 Delivery Room Air Room Air Room Air Room Air 407/02/20 07/02/20 07/02/20 10:31 10:34 10:37 10:40 Pulse 78 76 64 68 Resp 18 18 18 18 B/P (MAP) 132/77 (95) 132/80 (97) 135/81 (99) 128/78 (95) Pulse Ox 99 99 99 99 O2 Delivery Room Air Room Air Room Air Room Air 07/02/20 07/02/20 07/02/20 07/02/20 10:48 10:55 11:00 11:15 Temp 36.5 Pulse 70 66 62 59 Resp 18 18 18 18 B/P (MAP) 129/78 (95) 119/65 (83) 118/61 (80) 133/87 (102) Pulse Ox 99 98 98 O2 Delivery Room Air Room Air Room Air Room Air 07/02/20 07/02/20 07/02/20 07/02/20 11:30 11:45 12:00 12:15 Pulse 67 63 75 67 Resp 18 18 18 18 B/P (MAP) 140/90 (107) 134/78 (96) 131/80 (97) 132/80 (97) O2 Delivery Room Air Room Air Room Air Room Air 07/02/20 07/02/20 07/02/20 07/02/20 12:30 12:45 13:00 13:15 Temp 36.3 Pulse 66 64 85 59 Resp 18 18 18 18 B/P (MAP) 132/81 (98) 142/90 (107) 133/87 (102) 130/80 (97) O2 Delivery Room Air Room Air Room Air Room Air 07/02/20 07/02/20 07/02/20 07/02/20 13:30 13:45 14:00 14:15 Pulse 65 70 73 75 Resp 18 18 18 18 B/P (MAP) 140/85 (103) 109/54 (72) 123/70 (87) 150/79 (102) O2 Delivery Room Air Room Air Room Air Room Air 07/02/20 07/02/20 07/02/20 07/02/20 14:30 14:45 15:00 15:15 Temp 36.8 Pulse 63 83 70 71 Resp 18 18 18 18 B/P (MAP) 138/76 (96) 135/82 (99) 142/85 (104) 129/82 (98) O2 Delivery Non Rebreather Room Air Room Air Room Air O2 Flow Rate 15.00 07/02/20 07/02/20 07/02/20 07/02/20 15:30 15:45 16:00 16:15 Temp 36.8 Pulse 73 67 78 80 Resp 18 18 18 18 B/P (MAP) 148/90 (109) 136/92 (107) 142/83 (102) 139/86 (103) O2 Delivery Room Air Room Air Room Air Room Air 07/02/20 07/02/20 07/02/20 07/02/20 16:30 16:45 17:00 17:15 Pulse 75 75 69 69 Resp 18 18 18 18 B/P (MAP) 151/97 (115) 144/93 (110) 141/90 (107) 129/74 (92) O2 Delivery Room Air Room Air Room Air Room Air 07/02/20 07/02/20 07/02/20 07/02/20 17:30 17:45 18:00 18:15 Pulse 79 75 74 71 Resp 18 18 18 18 B/P (MAP) 131/76 (94) 128/78 (95) 135/82 (99) 134/85 (101) O2 Delivery Room Air Room Air Room Air Room Air 07/02/20 07/02/20 07/02/20 18:30 18:45 19:00 Temp 36.0 Pulse 84 74 80 Resp 18 18 18 B/P (MAP) 144/87 (106) 140/86 (104) 137/75 (95) O2 Delivery Room Air Room Air Room Air Signs of Distress by FHT Signs of Distress No Rupture of Membranes Spontaneous Ruture of Membrane: No Amniotic Membrane Rupture Time: 0641 Amniotic Membrane Fluid Desc.: Clear Vaginal Bleeding Description: None Induction/Anesthesia Epidural Cath Placement - Time: 0956 L&D Stage2 Stage Two Stage II Date: Jul 02, 2020 Stage II Time: 19:45 Monitors and Tracing Monitor Mode: Internal Heart Rate: 135 Monitor Accelerations: Uniform Monitor Decelerations: Variable Fdc Variability: Average (6-10) Position: Right Occiput Anterior Presentation: Vertex Signs of Distress by FHT Signs of Distress no Cord Descript/Complications Cord Vessel Description: 3 Vessels Delivery Type Infant Delivery Method: Spontaneous Vaginal Anterior Shoulder: Right Episiotomy/Perineal Laceration Laceraction(s)/Extensions: No Condition of Delivery 1 minute Comment: 9 5 minute Comment: 10 Condition of Infant Condition of : Living Exam: No Observed Abnormalities Resuscitation Resuscitation: N/A - Spontaneous Resp L&D Stage3 Stage Three Stage III Date: Jul 02, 2020 Stage III Time: 19:52 Pictocin Pitocin Administration mu/min: 15 Pitocin ml/hr: 15 Pitocin Administration Comment: Pitocin increased per protocol Placenta Delivery Placenta Delivery: Spontaneous Delivery Summary Summary Estimated blood loss (mL): 250 Condition of Delivery Examined: Cervix Examined Post Hemorrhage: No Intervention Required none NANCI MATT MD Jul 02, 2020 20:03
[2020-07-02] MEDS ORDERED: WITCH HAZEL(TUCKS) 40 EA JAR TOP PRN (20:15)
[2020-07-02] MEDS ORDERED: TETANUS,DIPTH,PERTUSS P/F (BOOSTRIX) 0.5 ML VIAL IM ONE (20:15)
[2020-07-02] MEDS ORDERED: BENZOCAINE/MENTHOL (DERMOPLAST) 56 ML CAN TP PRN (20:15)
[2020-07-02] MEDS ORDERED: MEASLES,MUMPS,RUBELLA 1 EA INJ SQ ONE (20:15)
[2020-07-02] MEDS: IBUPROFEN 600 MG (MOTRIN) TAB PO SCH (22:50)
[2020-07-02] MEDS: DOCUSATE SODIUM 100 MG (COLACE) CAP PO SCH (22:50)
[2020-07-03] VITALS (7 sets, daily range): BP systolic 115–147; BP diastolic 65–85
[2020-07-03 04:33] LABS: BASOPHILS % (AUTO) 0 % (0-10); EOSINOPHILS # (AUTO) 0.2 10^3/uL (0.0-0.3); EOSINOPHILS % (AUTO) 1 % (0-10); HEMATOCRIT 26 % (35-52); HEMOGLOBIN 7.6 g/dL (11.5-16.0); LYMPHOCYTES % (AUTO) 19 % (12-44); MEAN CORPUSCULAR HEMOGLOBIN 21 pg (25-34); MEAN CORPUSCULAR HGB CONC 29 g/dL (32-36); MEAN CORPUSCULAR VOLUME 74 fL (80-99); MEAN PLATELET VOLUME 9.6 fL (9.0-12.2); MONOCYTES # (AUTO) 0.8 10^3/uL (0.0-1.0); MONOCYTES % (AUTO) 5 % (0-12); NEUTROPHILS % (AUTO) 75 % (42-75); PLATELET COUNT 292 10^3/uL (130-400); WHITE BLOOD COUNT 16.1 10^3/uL (4.3-11.0)
[2020-07-03] MEDS: IBUPROFEN 600 MG (MOTRIN) TAB PO SCH ×3 (06:32→19:33)
--- NOTE | 2020-07-03 06:48 | Progress Note ---
Subjective Subjective/Events-last exam No complaints. Vaginal bleed following delivery much better this am. Objective Exam Last Set of Vital Signs Vital Signs Date Time Temp Pulse Resp B/P (MAP) Pulse Ox O2 Delivery O2 Flow Rate FiO2 07/03/20 06:31 37.0 78 18 133/84 (100) 98 Room Air 07/02/20 14:30 15.00 Capillary Refill : Less Than 3 Seconds I&O Intake and Output 07/03/20 00:00 Output Total 250 ml Balance -250 ml Output Post Void Residual 250 ml Daily Weight Change No General: No Acute Distress Lungs: Clear to Auscultation Abdomen: Soft (with firm uterus) Results/Procedures Lab Laboratory Tests 07/02/20 08:23: White Blood Count 11.2H, Red Blood Count 4.21, Hemoglobin 9.0L, Hematocrit 32L, Mean Corpuscular Volume 76L, Mean Corpuscular Hemoglobin 21L, Mean Corpuscular Hemoglobin Concent 28L, Red Cell Distribution Width 17.1H, Platelet Count 288, Mean Platelet Volume 10.1, Immature Granulocyte % (Auto) 1, Neutrophils (%) (Auto) 69, Lymphocytes (%) (Auto) 24, Monocytes (%) (Auto) 5, Eosinophils (%) (Auto) 1, Basophils (%) (Auto) 0, Neutrophils # (Auto) 7.7, Lymphocytes # (Auto) 2.7, Monocytes # (Auto) 0.6, Eosinophils # (Auto) 0.1, Basophils # (Auto) 0.0, Immature Granulocyte # (Auto) 0.1 07/03/20 04:20: White Blood Count 16.1H, Red Blood Count 3.55L, Hemoglobin 7.6L, Hematocrit 26L, Mean Corpuscular Volume 74L, Mean Corpuscular Hemoglobin 21L, Mean Corpuscular Hemoglobin Concent 29L, Red Cell Distribution Width 17.0H, Platelet Count 292, Mean Platelet Volume 9.6, Immature Granulocyte % (Auto) 1, Neutrophils (%) (Auto) 75, Lymphocytes (%) (Auto) 19, Monocytes (%) (Auto) 5, Eosinophils (%) (Auto) 1, Basophils (%) (Auto) 0, Neutrophils # (Auto) 12.0H, Lymphocytes # (Auto) 3.0, Monocytes # (Auto) 0.8, Eosinophils # (Auto) 0.2, Basophils # (Auto) 0.0, Immature Granulocyte # (Auto) 0.1 Assessment/Plan Assessment/Plan Admission Status: Inpatient Order (span 2 midnights) Assessment & Plan 1. IUP at 39 weeks--delivered -PP care orders 2. Anemia-iron def -iron NANCI MATT MD Jul 03, 2020 06:48
--- NOTE | 2020-07-03 07:03 | Anesthesia-Regional Post-Op ---
Regional Patient Condition Mental Status: Alert, Oriented x3 Circulation: Same as Pre-Op Headache: Absent Sensation: Full Recovery Motor Block: Absent Post Op Complications Complications None Follow Up Care/Instructions Patient Instructions None needed. Anesthesia/Patient Condition Patient is doing well, no complaints, stable vital signs, no apparent adverse anesthesia problems. No complications reported per nursing. D/C home per [facility] Criteria: CARLEE Galvan CRNA Jul 03, 2020 07:03
[2020-07-03] MEDS: FERROUS SULF 325 MG (IRON) TAB PO SCH (08:12)
[2020-07-03] MEDS: DOCUSATE SODIUM 100 MG (COLACE) CAP PO SCH ×2 (08:12→19:59)
[2020-07-03] MEDS: ACETAMINOPHEN 500 MG TAB (TYLENOL) PO SCH ×2 (10:11→16:30)
[2020-07-04 00:08] VITALS: BP 117/71
[2020-07-04] MEDS: IBUPROFEN 600 MG (MOTRIN) TAB PO SCH ×2 (00:09→06:06)
[2020-07-04 06:05] VITALS: BP 108/68
--- NOTE | 2020-07-04 07:08 | Discharge Summary ---
Diagnosis/Chief Complaint Date of Admission Jul 02, 2020 at 06:15 Date of Discharge July 04, 2020 Admission Diagnosis Admission Diagnosis 1. Intrauterine at term 39 weeks 2. Anemiairon deficiency Discharge Diagnosis 1. Intrauterine at term 39 weeks 2. Anemiairon deficiency Chief Complaint/HPI Chief Complaint/HPI 29-year-old 9 now term 5 who initially presented for induction of labor at 39 weeks and 3 days gestation. Patient presented on July 03, 2019 1 in the morning. She was noted to have GBS negative through [facility] at 36 weeks perineal check. She had very minimal contractions on presentation Discharge Summary-OBS Procedures 1. Epidural per anesthesia 2. Spontaneous vaginal delivery Discharge Physical Examination Allergies: Coded Allergies: oxycodone (Verified Adverse Reaction, Unknown, hyperactivity, 09/22/15) Vitals & I&Os Intake and Output 07/04/20 00:00 Intake Total 800 ml Balance 800 ml Vital Sign - Last 12Hours Date Time Temp Pulse Resp B/P (MAP) Pulse Ox O2 Delivery O2 Flow Rate FiO2 07/04/20 06:05 36.3 87 16 108/68 (81) 98 07/03/20 19:35 Room Air 07/02/20 14:30 15.00 General Appearance: No Acute Distress Respiratory: Clear to Auscultation Cardiovascular: Regular Rate Abdominal: Soft (With firm uterus) Skin: No Rashes Hospital Course Was the Problem List Reviewed?: Yes Following admission on July 02, 2020 she underwent routine labor orders. She requested epidural and this was given to her by anesthesia. She had required Pitocin augmentation after amniotomy in the morning of July 02. Fluid was noted to be clear. There was an initial bradycardia episode following artificial rupture of membranes but this resolved and strip remained reactive throughout the course of labor. Ultimately she went on to deliver a term viable female with Apgars of 9 at 1 minute and 10 at 5 minutes. There was no perineal lacerations. Following delivery she underwent routine care orders. She had no complications during the remainder of hospital stay. She had hemoglobin in the morning of July 03 that was 7.6 and this was compared to admission of 9.0. She was started on iron 325 mg daily. Patient was asymptomatic with regard to her hemoglobin. She admitted to no light headedness. She was ambulatory and was tolerating regular diet. She was felt ready for dismissal in the morning of July 04, 2020. She will follow-up with myself at [facility] in 6 weeks. Labs Laboratory Tests 07/03/20 16:00: Discharge Instructions to patient/family Please see electronic discharge instructions given to patient. Discharge Medications Reviewed and agree with Discharge Medication list on patient's Discharge Instruction sheet NANCI MATT MD Jul 04, 2020 07:08
--- NOTE | 2020-07-04 07:09 | Discharge Inst-Women's Service ---
Discharge Inst-Women's Serv Depart Medication/Instructions New, Converted or Re-Newed RX: Transmitted to Pharmacy Problems Reviewed?: Yes Consults/Follow Up Additional Follow Up: Yes (Dr Matt in 6 weeks at [facility]) Activity Activity: Activity as Tolerated Driving Instructions: No Driving for 1 Week Nothing Inside Vagina: No [place] (for 6 weeks.) Diet Discharge Diet: Regular Diet Return to The Hospital For: as below Symptoms to Report to : Bleeding Excessive, Fever Over 101 Degrees F, Vaginal Discharge Foul For Any Problems or Questions: Contact Your Physician NANCI MATT MD Jul 04, 2020 07:09
[2020-07-04] MEDS ORDERED: IBUP-844 PO (07:10)
[2020-07-04] MEDS ORDERED: FERR325T18 PO (07:10)
[2020-07-04] MEDS: FERROUS SULF 325 MG (IRON) TAB PO SCH (10:42)
[2020-07-04] MEDS: DOCUSATE SODIUM 100 MG (COLACE) CAP PO SCH (10:42)
[2020-07-04 11:00] VITALS: BP 121/73
--- NOTE | 2020-07-08 08:04 | Physician Query Clarification ---
PQ-Further Specificity Admission/Discharge Admission Date: Jul 02, 2020 at 06:15 Discharge Date: Jul 04, 2020 at 15:00 Dr. Matt, The medical record reflects the following clinical scenario: History/Risk Factors: delivery Clinical Findings: Hgb/Hct 9.0/32 > 7.6/26, EBL 250 Treatment: 325 mg ferrous sulfate Question: Can you further specify the iron deficiency anemia per the clinical indicators above? Please document a response in the Progress Notes or Discharge Summary. 1. iron deficiency anemia due to acute blood loss 2. iron deficiency anemia complicating 3. Other, with explanation of the clinical findings. 4. Clinically undetermined, no explanation for the clinical findings. PHYSICIAN RESPONSE Can you specify per above: 2 Please remember a lack of response to the above will prompt a phone page by [facility]oding staff. In responding to this query, please exercise your independent professional judgment. The purpose of this communication is to more accurately reflect the complexity of your patients condition. The fact that a question is asked does not imply that any particular answer is desired or expected. Thank you for your timely response to this clarification. Requestors name: [email or web address] THIS PHYSICIAN QUERY FORM IS A PERMANENT PART OF THE MEDICAL RECORD EDD FLORES Jul 08, 2020 08:04 NANCI MATT MD Jul 11, 2020 07:04
== END 2020-07-04 15:00 | disposition home or self-care (01) | DRG 807 ==
LOC: LDRP 06:15
PROVIDERS: ADMIT Family Medicine; ATTEND Family Medicine
PROC: 10E0XZZ Delivery of Products of Conception, External Approach (ICD-10-PCS; principal; 2020-07-03)
PROC: 10907ZC Drainage of Amniotic Fluid, Therapeutic from Products of Conception, Via Natural or Artificial Opening (ICD-10-PCS; 2020-07-03)
DX: O90.81 Anemia of the puerperium (principal); Z37.0 Single live birth; D50.9 Iron deficiency anemia, unspecified; Z88.6 Allergy status to analgesic agent
CPT/HCPCS: 36415; 85025; 86703; 86762; 86780; 86850; 86900; 86901; 87340